=== PATIENT | female | born 1970 | race American Indian/Alaskan Native ===

== ENCOUNTER 2016-04-18 16:29 | Emergency (ER) | payer MEDICAID, OTHER ==
[2016-04-18 16:53] VITALS: BP 109/64
--- NOTE | 2016-04-18 17:03 | EDM.PDOC ---
<Constance Garza - Last Filed: 04/18/16 19:28> ED HPI GENERAL MEDICAL PROBLEM - General Chief Complaint: General Stated Complaint: BY AMBULANCE Time Seen by Provider: 04/18/16 17:00 Source of Information: Reports: Patient History Limitations: Reports: No limitations - History of Present Illness INITIAL COMMENTS - FREE TEXT/NARRATIVE: Pt states that she is diabetic and did not take her insulin today. [place] and started having nausea and vomiting. No other complaints. Onset Date: 04/18/16 Location: Reports: abdomen Quality: Reports: Ache Severity: mild Associated Symptoms: Reports: nausea/vomiting (dizzy) - Related Data Allergies Allergy/AdvReac Type Severity Reaction Status Date / Time acetaminophen Allergy Vomiting Verified 01/29/15 15:34 Home Meds: Home Meds Aspirin [Sixto Chewable Aspirin] 81 mg PO DAILY 01/29/15 [History] Insulin Aspart [NovoLOG] 10 - 20 units SUBCUT TID 01/29/15 [History] Insulin Detemir [Levemir Flextouch] 30 units SUBCUT DAILY 01/29/15 [History] Lisinopril [Prinivil] 10 mg PO DAILY 01/29/15 [History] Gabapentin [Neurontin] 600 mg PO DAILY #30 tablet 02/05/15 [Rx] Metoclopramide [Reglan] 5 mg PO QIDACANDBED PRN 02/05/15 [History] Potassium Chloride [Klor-Con 10] 20 meq PO BIDMEALS #60 tab.er 02/05/15 [Rx] atorvaSTATin [Lipitor] 20 mg PO BEDTIME #30 tablet 02/05/15 [Rx] Hydrocodone/Acetaminophen [Hydrocodon-Acetaminophen 5-325] 1 tab PO ASDIRECTED PRN 04/18/16 [History] Past Medical History Cardiovascular History: Reports: High cholesterol, Hypertension, Syncope, Other (see below) Other Cardiovascular History: "have heart disease" Respiratory History: Reports: Bronchitis, recurrent, Pneumonia, recurrent Gastrointestinal History: Reports: GERD, Other (see below) Other Gastrointestinal History: Hernia repair on right side of abdomen Genitourinary History: Reports: Diabetic nephropathy Musculoskeletal History: Reports: Back pain, chronic, Other (see below) Other Musculoskeletal History: spinal stenosis and arthritis in spine Neurological History: Reports: Concussion, Headaches, chronic, Migraines, Neuropathy, diabetic Psychiatric History: Reports: Anxiety, Depression, Panic attack Endocrine/Metabolic History: Reports: Diabetes, type II Dermatologic History: Reports: Other (see below) Other Dermatologic History: past history of betancur. patient states 90% of body - Infectious Disease History Infectious Disease History: Reports: Chicken pox, Pertussis (whooping cough) - Past Surgical History GI Surgical History: Reports: EGD, Hernia, abdominal Dermatological Surgical History: Reports: Plastic surgical reconstruction/repair , Skin graft Social & Family History - Family History Cardiac: Reports: High cholesterol, Hypertension, Other (see below) Other Cardiac Family History: "bad heart" GI: Reports: Cirrhosis Other GI Family History: "sister has cirrhosis" Musculoskeletal: Reports: Arthritis, Back pain, chronic, RA Other Musculoskeletal Family History: mom has Ra,dad has chronic back pain and arthritis Neurological: Reports: Alzheimers disease, Dementia, Other (see below) Other Neurological Family History: dad has dementia and alzheimers disease and brother has permanent brain damage Psychiatric: Reports: Depression Endocrine/Metabolic: Reports: Diabetes, type I Other Endocrine/Metabolic Family History: Mom - Tobacco Use Smoking Status *Q: Former Smoker Years of Tobacco use: 1 Packs/Tins Daily: 0.1 Used Tobacco, but Quit: Yes Month Tobacco Last Used: 08 Second Hand Smoke Exposure: Yes - Caffeine Use Caffeine Use: Reports: None - Recreational Drug Use Recreational Drug Use: No Drug Use in Last 12 Months: No Recreational Drug Type: Reports: Marijuana/Hashish ED ROS GENERAL - Review of Systems Review Of Systems: See Below GI/Abdominal: Reports: Abdominal pain, Nausea, Vomiting Neurological: Reports: dizziness ED EXAM, GENERAL - Physical Exam Exam: See Below Exam Limited By: No limitations General Appearance: alert, WD/WN, no apparent distress Eye Exam: bilateral eye: PERRL Ear Exam: bilateral ear: auricle normal, canal normal, TM normal Head: atraumatic, normocephalic Neck: normal inspection, supple, non-tender, full range of motion Respiratory/Chest: no respiratory distress, lungs clear, normal breath sounds, no accessory muscle use, chest non-tender Cardiovascular: normal peripheral pulses, regular rate, rhythm, no edema, no gallop, no JVD, no murmur, no rub Neurological: alert, oriented, CN II-XII intact, normal cognition, normal gait, normal reflexes, no motor/sensory deficits Skin Exam: Warm, Dry, Intact, Normal color, No rash Course - Vital Signs Last Recorded V/S: Last Vital Signs Temp 36.2 C 04/18/16 16:29 Pulse 97 04/18/16 16:29 Resp 16 04/18/16 16:29 BP 109/64 04/18/16 16:29 Pulse Ox 99 04/18/16 16:29 - Orders/Labs/Meds Orders: Active Orders 24 hr Category Date Time Status Blood Glucose Check, Bedside [RC] ONETIME Care 04/18/16 20:25 Active CMP [COMPREHENSIVE METABOLIC PN,CMP] [CHEM] Stat Lab 04/18/16 23:56 Received Labs: Laboratory Tests 04/18/16 04/18/16 04/18/16 Range/Units 17:14 17:14 17:14 WBC 13.6 H (5.0-10.0) 10^3/uL RBC 5.44 H (4.2-5.4) 10^6/uL Hgb 14.9 (12.0-16.0) g/dL Hct 42.4 (37.0-47.0) % MCV 77.9 L (80-100) fL MCH 27.4 (27.0-34.0) pg MCHC 35.1 H (33.0-35.0) g/dL Plt Count 298 (150-450) 10^3/uL Neut % (Auto) 77.0 H (42.2-75.2) % Lymph % (Auto) 16.9 L (20.5-50.1) % [place] % (Auto) 5.0 (2-8) % Eos % (Auto) 0.9 L (1.0-3.0) % Baso % (Auto) 0.2 (0.0-1.0) % Sodium 127 L (135-145) mmol/L Potassium 4.9 (3.6-5.0) mmol/L Chloride 98 L (101-111) mmol/L Carbon Dioxide 19.0 L (21.0-31.0) mmol/L Anion Gap 14.9 BUN 33 H (7-18) mg/dL Creatinine 1.4 H (0.6-1.3) mg/dL Est Cr Clr Drug Dosing TNP Estimated GFR (MDRD) 41 BUN/Creatinine Ratio 23.57 Glucose 439 H* (74-105) mg/dL POC Glucose (70-105) mg/dl Lactic Acid 1.7 (0.5-2.2) mmol/L Calcium 8.9 (8.4-10.2) mg/dl Total Bilirubin 0.7 (0.2-1.0) mg/dL AST 16 (10-42) IU/L ALT 29 (10-60) IU/L Alkaline Phosphatase 109 (42-121) IU/L Total Protein 7.3 (6.7-8.2) g/dl Albumin 3.7 (3.2-5.5) g/dl Globulin 3.6 Albumin/Globulin Ratio 1.03 Urine Color (YELLOW) Urine Appearance (CLEAR) Urine pH (5.0-9.0) Ur Specific [place] (1.005-1.030) Urine Protein (NEGATIVE) Urine Glucose (UA) (NEGATIVE) Urine Ketones (NEGATIVE) Urine Occult Blood (NEGATIVE) Urine Nitrite (NEGATIVE) Urine Bilirubin (NEGATIVE) Urine Urobilinogen (0.2-1.0) mg/dL Ur Leukocyte Esterase (NEGATIVE) Urine RBC /HPF Urine WBC (0-5/HPF) /HPF Ur Epithelial Cells /HPF Urine Bacteria (0-FEW/HPF) /HPF Urinalysis Comment Ketones Positive (small) 04/18/16 04/18/16 04/18/16 Range/Units 17:15 20:27 22:56 WBC (5.0-10.0) 10^3/uL RBC (4.2-5.4) 10^6/uL Hgb (12.0-16.0) g/dL Hct (37.0-47.0) % MCV (80-100) fL MCH (27.0-34.0) pg MCHC (33.0-35.0) g/dL Plt Count (150-450) 10^3/uL Neut % (Auto) (42.2-75.2) % Lymph % (Auto) (20.5-50.1) % [place] % (Auto) (2-8) % Eos % (Auto) (1.0-3.0) % Baso % (Auto) (0.0-1.0) % Sodium (135-145) mmol/L Potassium (3.6-5.0) mmol/L Chloride (101-111) mmol/L Carbon Dioxide (21.0-31.0) mmol/L Anion Gap BUN (7-18) mg/dL Creatinine (0.6-1.3) mg/dL Est Cr Clr Drug Dosing Estimated GFR (MDRD) BUN/Creatinine Ratio Glucose (74-105) mg/dL POC Glucose 385 H 282 H (70-105) mg/dl Lactic Acid (0.5-2.2) mmol/L Calcium (8.4-10.2) mg/dl Total Bilirubin (0.2-1.0) mg/dL AST (10-42) IU/L ALT (10-60) IU/L Alkaline Phosphatase (42-121) IU/L Total Protein (6.7-8.2) g/dl Albumin (3.2-5.5) g/dl Globulin Albumin/Globulin Ratio Urine Color Yellow (YELLOW) Urine Appearance Turbid (CLEAR) Urine pH 5.0 (5.0-9.0) Ur Specific [place] 1.020 (1.005-1.030) Urine Protein >=300 H (NEGATIVE) Urine Glucose (UA) 500 H (NEGATIVE) Urine Ketones Negative (NEGATIVE) Urine Occult Blood Small H (NEGATIVE) Urine Nitrite Negative (NEGATIVE) Urine Bilirubin Small H (NEGATIVE) Urine Urobilinogen 0.2 (0.2-1.0) mg/dL Ur Leukocyte Esterase Small H (NEGATIVE) Urine RBC 5-10 H /HPF Urine WBC 5-10 H (0-5/HPF) /HPF Ur Epithelial Cells Many H /HPF Urine Bacteria Many H (0-FEW/HPF) /HPF Urinalysis Comment Ketones Meds: Medications Discontinued Medications Generic Name Dose Route Start Last Admin Trade Name Freq PRN Reason Stop Dose Admin Ciprofloxacin 500 mg 04/18/16 19:06 04/18/16 19:24 Ciprofloxacin Hcl PO 04/18/16 19:07 500 mg ONETIME ONE Administration Sodium Chloride 1,000 mls @ 999 mls/hr 04/18/16 19:13 04/18/16 22:09 Normal Saline IV 04/18/16 20:13 Not Given .BOLUS ONE Potassium Chloride 20 meq/ 100 mls @ 50 mls/hr 04/18/16 19:21 04/18/16 20:20 Premix IV 04/18/16 21:20 50 mls/hr ONETIME ONE Administration Sodium Chloride 2,000 mls @ 999 mls/hr 04/18/16 19:20 04/18/16 20:19 Normal Saline IV 04/18/16 21:20 999 mls/hr .BOLUS ONE Administration Insulin Human Regular 10 unit 04/19/16 17:45 Novolin R SUBCUT 04/19/16 17:46 ONETIME ONE Protocol Insulin Human Regular Confirm 04/18/16 18:31 04/18/16 18:37 Novolin R Administered 04/18/16 18:32 10 units Dose Administration 1,000 unit .ROUTE .STK-MED ONE Insulin Human Regular 5 unit 04/18/16 20:30 04/18/16 20:38 Novolin R SUBCUT 04/18/16 20:31 5 units ONETIME ONE Administration Protocol - Re-Assessments/Exams Free Text/Narrative Re-Assessment/Exam: 04/18/16 19:[address] Francois, hospitalist who states that pt does not need to be admitted at this time. States that patient should receive Insulin at least 16 units and IV fluids to correct her GAP and she may be able to be discharged. Will administer recommendations. Departure - Departure Disposition: Home, Self-Care 01 Clinical Impression: Ketoacidosis in diabetes mellitus Forms: ED Department Discharge Additional Instructions: Rest Follow your Diabetic Diet Take your medications as prescribed only F/U w/ PCP - My Orders Last 24 Hours: My Active Orders 04/18/16 20:25 Blood Glucose Check, Bedside [RC] ONETIME 04/18/16 23:56 CMP [COMPREHENSIVE METABOLIC PN,CMP] [CHEM] Stat - Assessment/Plan Last 24 Hours: My Active Orders 04/18/16 20:25 Blood Glucose Check, Bedside [RC] ONETIME 04/18/16 23:56 CMP [COMPREHENSIVE METABOLIC PN,CMP] [CHEM] Stat <Ayan Quach - Last Filed: 04/19/16 00:30> Departure - Departure Time of Disposition: 00:29 Condition: good
[2016-04-18 17:40] LABS: CHLORIDE,CL 98 mmol/L (101-111); SODIUM,NA 127 mmol/L (135-145)
[2016-04-18] MEDS ORDERED: Insulin Regular, Human 100 Units/ML 10 ML Vial ONE (18:31)
[2016-04-18] MEDS ORDERED: Ciprofloxacin 500 MG Tab PO ONE (19:06)
[2016-04-18] MEDS ORDERED: Sodium Chloride 0.9% 1,000 ML IV ONE (19:13)
[2016-04-18] MEDS ORDERED: Sodium Chloride 0.9% 2,000 ML IV ONE (19:20)
[2016-04-18] MEDS ORDERED: Potassium Chloride 20 MEQ in Premix Bag 1 BAG IV ONE (19:21)
[2016-04-18] MEDS ORDERED: Insulin Regular, Human 100 Units/ML 10 ML Vial SUBCUT ONE (20:30)
[2016-04-19 00:37] LABS: CHLORIDE,CL 108 mmol/L (101-111); SODIUM,NA 133 mmol/L (135-145)
[2016-04-19] MEDS ORDERED: Insulin Regular, Human 100 Units/ML 10 ML Vial SUBCUT ONE (17:45)
== END 2016-04-19 01:00 | disposition home or self-care (01) ==
LOC: DL.ED 16:29
DX: E13.10 Other specified diabetes mellitus with ketoacidosis without coma (principal); E78.00 Pure hypercholesterolemia, unspecified; I10 Essential (primary) hypertension; Z87.01 Personal history of pneumonia (recurrent); K21.9 Gastro-esophageal reflux disease without esophagitis; F41.9 Anxiety disorder, unspecified; F32.9 Major depressive disorder, single episode, unspecified; Z87.891 Personal history of nicotine dependence; Z79.4 Long term (current) use of insulin; Z79.82 Long term (current) use of aspirin; Z88.6 Allergy status to analgesic agent
CPT/HCPCS: 36415; 80053; 81001; 82009; 82962; 83605; 85025; 96365; 96366; 99284; A9270; J1815; J3480; J7030

== ENCOUNTER 2016-04-19 21:40 | Emergency (ER) | payer MEDICAID, OTHER ==
[2016-04-19 21:46] VITALS: BP 97/78
[2016-04-19] MEDS ORDERED: diphenhydrAMINE 50 MG/ML SDV IVPUSH ONE (22:03)
[2016-04-19] MEDS ORDERED: Sodium Chloride 0.9% 1,000 ML IV ONE ×2 (22:03→23:10)
[2016-04-19] MEDS ORDERED: Famotidine 20 MG/2 ML SDV IVPUSH ONE (22:04)
--- NOTE | 2016-04-19 22:16 | EDM.PDOC ---
ED HPI Allergic Reaction - General Chief Complaint: Allergic Reaction Stated Complaint: AMB Time Seen by Provider: 04/19/16 22:16 Source of Information: Reports: Patient, EMS History Limitations: Reports: No limitations - History of Present Illness INITIAL COMMENTS - FREE TEXT/NARRATIVE: c/o hives and itching since ED visit last night. Has not taken insulin yet today as no appetite. One dose of cipro last issac. Seen in ED for high blood sugar. - Related Data Allergies/ADRs: Allergies Allergy/AdvReac Type Severity Reaction Status Date / Time acetaminophen Allergy Vomiting Verified 04/19/16 21:46 Home Meds: Home Meds Aspirin [Sixto Chewable Aspirin] 81 mg PO DAILY 01/29/15 [History] Insulin Aspart [NovoLOG] 10 - 20 units SUBCUT TID 01/29/15 [History] Insulin Detemir [Levemir Flextouch] 30 units SUBCUT DAILY 01/29/15 [History] Lisinopril [Prinivil] 10 mg PO DAILY 01/29/15 [History] Gabapentin [Neurontin] 600 mg PO DAILY #30 tablet 02/05/15 [Rx] Metoclopramide [Reglan] 5 mg PO QIDACANDBED PRN 02/05/15 [History] Potassium Chloride [Klor-Con 10] 20 meq PO BIDMEALS #60 tab.er 02/05/15 [Rx] atorvaSTATin [Lipitor] 20 mg PO BEDTIME #30 tablet 02/05/15 [Rx] Past Medical History Cardiovascular History: Reports: High cholesterol, Hypertension, Syncope, Other (see below) Other Cardiovascular History: "have heart disease" Respiratory History: Reports: Bronchitis, recurrent, Pneumonia, recurrent Gastrointestinal History: Reports: GERD, Other (see below) Other Gastrointestinal History: Hernia repair on right side of abdomen Genitourinary History: Reports: Diabetic nephropathy Musculoskeletal History: Reports: Back pain, chronic, Other (see below) Other Musculoskeletal History: spinal stenosis and arthritis in spine Neurological History: Reports: Concussion, Headaches, chronic, Migraines, Neuropathy, diabetic Psychiatric History: Reports: Anxiety, Depression, Panic attack Endocrine/Metabolic History: Reports: Diabetes, type II Dermatologic History: Reports: Other (see below) Other Dermatologic History: past history of betancur. patient states 90% of body - Infectious Disease History Infectious Disease History: Reports: Chicken pox, Pertussis (whooping cough) - Past Surgical History GI Surgical History: Reports: EGD, Hernia, abdominal Dermatological Surgical History: Reports: Plastic surgical reconstruction/repair , Skin graft Social & Family History - Family History Cardiac: Reports: High cholesterol, Hypertension, Other (see below) Other Cardiac Family History: "bad heart" GI: Reports: Cirrhosis Other GI Family History: "sister has cirrhosis" Musculoskeletal: Reports: Arthritis, Back pain, chronic, RA Other Musculoskeletal Family History: mom has Ra,dad has chronic back pain and arthritis Neurological: Reports: Alzheimers disease, Dementia, Other (see below) Other Neurological Family History: dad has dementia and alzheimers disease and brother has permanent brain damage Psychiatric: Reports: Depression Endocrine/Metabolic: Reports: Diabetes, type I Other Endocrine/Metabolic Family History: Mom - Tobacco Use Smoking Status *Q: Never Smoker Years of Tobacco use: 1 Packs/Tins Daily: 0.1 Used Tobacco, but Quit: Yes Month Tobacco Last Used: 08 Second Hand Smoke Exposure: No - Caffeine Use Caffeine Use: Reports: None - Recreational Drug Use Recreational Drug Use: No Drug Use in Last 12 Months: No Recreational Drug Type: Reports: Marijuana/Hashish ED ROS ALLERGIC REACTION - Review of Systems Review Of Systems: See Below Constitutional: Reports: decreased appetite HEENT: Reports: No symptoms Respiratory: Reports: no symptoms Cardiovascular: Reports: No symptoms Endocrine: Reports: high glucose GI/Abdominal: Reports: No symptoms : Reports: no symptoms Skin: Reports: rash (hives upper extremities neck and back) Neurological: Reports: no symptoms ED EXAM GENERAL NO PERIP PULSE - Physical Exam Exam: See Below Exam Limited By: No limitations General Appearance: alert, no apparent distress Eye Exam: bilateral eye: EOMI Ears: normal external exam, normal TMs Nose: normal inspection Throat/Mouth: Normal inspection, Normal lips Head: atraumatic, normocephalic Respiratory/Chest: no respiratory distress, lungs clear, normal breath sounds Cardiovascular: normal peripheral pulses, regular rate, rhythm GI/Abdominal: normal bowel sounds, soft Extremities: normal inspection Neurological: alert, oriented, normal cognition Skin Exam: Warm, Dry, Other (macular hives upper extremities neck ches abdomen and back upper arms excoriated. ) Course - Vital Signs Last Recorded V/S: Last Vital Signs Temp 98.1 F 04/19/16 21:40 Pulse 99 04/19/16 21:40 Resp 18 04/19/16 21:40 BP 97/78 04/19/16 21:40 Pulse Ox 96 04/19/16 21:40 - Orders/Labs/Meds Orders: Active Orders 24 hr Category Date Time Status Glucose [Blood Glucose Check, Bedside] [] ONETIME Care 04/20/16 00:01 Active Glucose [Blood Glucose Check, Bedside] [] ONETIME Care 04/20/16 00:48 Active UA W/MICROSCOPIC [URIN] Stat Lab 04/20/16 00:10 Stop Req Labs: Laboratory Tests 04/19/16 04/19/16 04/19/16 Range/Units 22:04 22:04 22:04 WBC 11.3 H (5.0-10.0) 10^3/uL RBC 4.45 (4.2-5.4) 10^6/uL Hgb 12.2 (12.0-16.0) g/dL Hct 35.9 L (37.0-47.0) % MCV 80.7 (80-100) fL MCH 27.4 (27.0-34.0) pg MCHC 34.0 (33.0-35.0) g/dL Plt Count 271 (150-450) 10^3/uL Neut % (Auto) 76.4 H (42.2-75.2) % Lymph % (Auto) 17.0 L (20.5-50.1) % [place] % (Auto) 6.0 (2-8) % Eos % (Auto) 0.5 L (1.0-3.0) % Baso % (Auto) 0.1 (0.0-1.0) % Sodium 131 L (135-145) mmol/L Potassium 4.5 (3.6-5.0) mmol/L Chloride 101 (101-111) mmol/L Carbon Dioxide 20.0 L (21.0-31.0) mmol/L Anion Gap 14.5 BUN 44 H (7-18) mg/dL Creatinine 1.8 H (0.6-1.3) mg/dL Est Cr Clr Drug Dosing 34.44 mL/min Estimated GFR (MDRD) 31 BUN/Creatinine Ratio 24.44 Glucose 508 H* (74-105) mg/dL POC Glucose (70-105) mg/dl Lactic Acid 1.9 (0.5-2.2) mmol/L Calcium 8.5 (8.4-10.2) mg/dl Total Bilirubin 0.5 (0.2-1.0) mg/dL AST 17 (10-42) IU/L ALT 22 (10-60) IU/L Alkaline Phosphatase 94 (42-121) IU/L Total Protein 6.2 L (6.7-8.2) g/dl Albumin 3.2 (3.2-5.5) g/dl Globulin 3.0 Albumin/Globulin Ratio 1.07 Amylase 23 L (28-100) U/L Lipase 29 (22-51) U/L Urine Opiates Screen (NEGATIVE) Ur Oxycodone Screen (NEGATIVE) Urine Methadone Screen (NEGATIVE) Ur Barbiturates Screen (NEGATIVE) U Tricyclic Antidepress (NEGATIVE) Ur Phencyclidine Scrn (NEGATIVE) Ur Amphetamine Screen (NEGATIVE) U Methamphetamines Scrn (NEGATIVE) Urine MDMA Screen (NEGATIVE) U Benzodiazepines Scrn (NEGATIVE) Urine Cocaine Screen (NEGATIVE) U Marijuana (THC) Screen (NEGATIVE) Ketones Negative 04/20/16 04/20/16 04/20/16 Range/Units 00:03 00:10 00:51 WBC (5.0-10.0) 10^3/uL RBC (4.2-5.4) 10^6/uL Hgb (12.0-16.0) g/dL Hct (37.0-47.0) % MCV (80-100) fL MCH (27.0-34.0) pg MCHC (33.0-35.0) g/dL Plt Count (150-450) 10^3/uL Neut % (Auto) (42.2-75.2) % Lymph % (Auto) (20.5-50.1) % [place] % (Auto) (2-8) % Eos % (Auto) (1.0-3.0) % Baso % (Auto) (0.0-1.0) % Sodium (135-145) mmol/L Potassium (3.6-5.0) mmol/L Chloride (101-111) mmol/L Carbon Dioxide (21.0-31.0) mmol/L Anion Gap BUN (7-18) mg/dL Creatinine (0.6-1.3) mg/dL Est Cr Clr Drug Dosing mL/min Estimated GFR (MDRD) BUN/Creatinine Ratio Glucose (74-105) mg/dL POC Glucose 399 H 387 H (70-105) mg/dl Lactic Acid (0.5-2.2) mmol/L Calcium (8.4-10.2) mg/dl Total Bilirubin (0.2-1.0) mg/dL AST (10-42) IU/L ALT (10-60) IU/L Alkaline Phosphatase (42-121) IU/L Total Protein (6.7-8.2) g/dl Albumin (3.2-5.5) g/dl Globulin Albumin/Globulin Ratio Amylase (28-100) U/L Lipase (22-51) U/L Urine Opiates Screen Negative (NEGATIVE) Ur Oxycodone Screen Negative (NEGATIVE) Urine Methadone Screen Negative (NEGATIVE) Ur Barbiturates Screen Negative (NEGATIVE) U Tricyclic Antidepress Negative (NEGATIVE) Ur Phencyclidine Scrn Negative (NEGATIVE) Ur Amphetamine Screen Positive H (NEGATIVE) U Methamphetamines Scrn Positive H (NEGATIVE) Urine MDMA Screen Negative (NEGATIVE) U Benzodiazepines Scrn Negative (NEGATIVE) Urine Cocaine Screen Negative (NEGATIVE) U Marijuana (THC) Screen Positive H (NEGATIVE) Ketones Meds: Medications Discontinued Medications Generic Name Dose Route Start Last Admin Trade Name Brian PRN Reason Stop Dose Admin Diphenhydramine HCl 25 mg 04/19/16 22:03 04/19/16 22:12 Benadryl IVPUSH 04/19/16 22:04 25 mg ONETIME ONE Administration Famotidine 20 mg 04/19/16 22:04 04/19/16 22:16 Pepcid IVPUSH 04/19/16 22:05 20 mg ONETIME ONE Administration Sodium Chloride 1,000 mls @ 999 mls/hr 04/19/16 22:03 04/19/16 22:12 Normal Saline IV 04/19/16 23:03 999 mls/hr .BOLUS ONE Administration Sodium Chloride 1,000 mls @ 999 mls/hr 04/19/16 23:10 04/19/16 23:14 Normal Saline IV 04/20/16 00:10 999 mls/hr .BOLUS ONE Administration Insulin Human Regular 10 unit 04/20/16 22:10 Novolin R SUBCUT 04/20/16 22:11 ONETIME ONE Protocol Insulin Human Regular 10 unit 04/19/16 22:52 04/19/16 23:06 Novolin R SUBCUT 04/19/16 22:53 10 units ONETIME ONE Administration Protocol Insulin Human Regular 10 unit 04/20/16 00:58 04/20/16 01:06 Novolin R SUBCUT 04/20/16 00:59 10 units BIDAC ONE Administration Protocol - Re-Assessments/Exams Free Text/Narrative Re-Assessment/Exam: 04/20/16 01:38 UDS positive for meth, patient denied use herself stating she was just around others last week who were doing it.. TC consult Dr. Escobedo In agreement, as blood sugars are improving. No present indication for admission. Departure - Departure Time of Disposition: 01:10 Disposition: Home, Self-Care 01 Condition: fair Clinical Impression: Hyperglycemia, Hives, Methamphetamine abuse Instructions: Hives Forms: ED Department Discharge Additional Instructions: take insulin as directed check blood sugars in 2 hours eat in am - My Orders Last 24 Hours: My Active Orders 04/20/16 00:01 Glucose [Blood Glucose Check, Bedside] [] ONETIME 04/20/16 00:10 UA W/MICROSCOPIC [URIN] Stat 04/20/16 00:48 Glucose [Blood Glucose Check, Bedside] [] ONETIME - Assessment/Plan Last 24 Hours: My Active Orders 04/20/16 00:01 Glucose [Blood Glucose Check, Bedside] [] ONETIME 04/20/16 00:10 UA W/MICROSCOPIC [URIN] Stat 04/20/16 00:48 Glucose [Blood Glucose Check, Bedside] [] ONETIME
[2016-04-19 22:48] LABS: CHLORIDE,CL 101 mmol/L (101-111); SODIUM,NA 131 mmol/L (135-145)
[2016-04-19] MEDS ORDERED: Insulin Regular, Human 100 Units/ML 10 ML Vial SUBCUT ONE (22:52)
[2016-04-20] MEDS ORDERED: Insulin Regular, Human 100 Units/ML 10 ML Vial SUBCUT ONE ×2 (00:58→22:10)
== END 2016-04-20 01:20 | disposition home or self-care (01) ==
LOC: DL.ED 21:40
DX: L50.9 Urticaria, unspecified (principal); E13.10 Other specified diabetes mellitus with ketoacidosis without coma; E11.65 Type 2 diabetes mellitus with hyperglycemia; F15.10 Other stimulant abuse, uncomplicated; E78.00 Pure hypercholesterolemia, unspecified; I10 Essential (primary) hypertension; Z87.01 Personal history of pneumonia (recurrent); K21.9 Gastro-esophageal reflux disease without esophagitis; E11.40 Type 2 diabetes mellitus with diabetic neuropathy, unspecified; E11.21 Type 2 diabetes mellitus with diabetic nephropathy; F41.9 Anxiety disorder, unspecified; F32.9 Major depressive disorder, single episode, unspecified; Z88.6 Allergy status to analgesic agent; Z79.4 Long term (current) use of insulin; Z79.82 Long term (current) use of aspirin; Z79.899 Other long term (current) drug therapy; Z87.891 Personal history of nicotine dependence
CPT/HCPCS: 36415; 80053; 80305; 81001; 82009; 82150; 82962; 83605; 83690; 85025; 96361; 96365; 96366; 96374; 96375; 99284; 99285; A9270; J1200; J1815; J3480; J7030; S0028

== ENCOUNTER 2016-10-11 17:57 | Emergency (ER) | payer MEDICAID, OTHER ==
[2016-10-11 18:35] VITALS: BP 118/71
[2016-10-11] MEDS ORDERED: Acetaminophen/HYDROcodone 325-10 MG Tab PO ONE (18:59)
[2016-10-11] MEDS ORDERED: Clindamycin HCl 150 MG Cap PO ONE (18:59)
--- NOTE | 2016-10-11 19:05 | EDM.PDOC ---
ED HPI GENERAL MEDICAL PROBLEM - General Chief Complaint: ENT Problem Stated Complaint: EAR INFECTION, ULCER ON TOE, [id number] Time Seen by Provider: 10/11/16 19:00 Source of Information: Reports: Patient History Limitations: Reports: No Limitations - History of Present Illness INITIAL COMMENTS - FREE TEXT/NARRATIVE: had right big toe procedure done @ [facility] this am given '0' also right ear been hurting few days Right Ear Pain Score (Numeric/FACES): 10 - Related Data Allergies Allergy/AdvReac Type Severity Reaction Status Date / Time acetaminophen Allergy Vomiting Verified 10/11/16 18:20 Home Meds: Home Meds Aspirin [Sixto Chewable Aspirin] 81 mg PO DAILY 01/29/15 [History] Insulin Aspart [NovoLOG] 10 - 20 units SUBCUT TID 01/29/15 [History] Insulin Detemir [Levemir Flextouch] 30 units SUBCUT DAILY 01/29/15 [History] Lisinopril [Prinivil] 10 mg PO DAILY 01/29/15 [History] Gabapentin [Neurontin] 600 mg PO DAILY #30 tablet 02/05/15 [Rx] Metoclopramide [Reglan] 5 mg PO QIDACANDBED PRN 02/05/15 [History] Potassium Chloride [Klor-Con 10] 20 meq PO BIDMEALS #60 tab.er 02/05/15 [Rx] atorvaSTATin [Lipitor] 20 mg PO BEDTIME #30 tablet 02/05/15 [Rx] Calcium Carb & Citrate/Vit D3 [Calcium + D3 ER Tablet] 1 each PO BID 10/11/16 [ History] Loperamide [Imodium AD] 2 mg PO Q3H PRN 10/11/16 [History] Multivitamin [Daily Multiple Vitamin] 1 tab PO DAILY 10/11/16 [History] Past Medical History Cardiovascular History: Reports: High Cholesterol, Hypertension, Syncope, Other (See Below) Other Cardiovascular History: "have heart disease" Respiratory History: Reports: Bronchitis, Recurrent, Pneumonia, Recurrent Gastrointestinal History: Reports: Chronic Diarrhea, GERD Other Gastrointestinal History: Hernia repair on right side of abdomen Genitourinary History: Reports: Diabetic Nephropathy Musculoskeletal History: Reports: Back Pain, Chronic, Other (See Below) Other Musculoskeletal History: spinal stenosis and arthritis in spine Neurological History: Reports: Concussion, Headaches, Chronic, Migraines, Neuropathy, Diabetic Psychiatric History: Reports: Anxiety, Depression, Panic Attack Endocrine/Metabolic History: Reports: Diabetes, Type II Dermatologic History: Reports: Other (See Below) Other Dermatologic History: past history of betancur. patient states 90% of body - Infectious Disease History Infectious Disease History: Reports: Chicken Pox, Pertussis (Whooping Cough) - Past Surgical History GI Surgical History: Reports: EGD, Hernia, Abdominal Dermatological Surgical History: Reports: Plastic Surgical Reconstruction/Repair , Skin Graft Social & Family History - Family History Cardiac: Reports: High Cholesterol, Hypertension, Other (See Below) Other Cardiac Family History: "bad heart" GI: Reports: Cirrhosis Other GI Family History: "sister has cirrhosis" Musculoskeletal: Reports: Arthritis, Back pain, Chronic, RA Other Musculoskeletal Family History: mom has Ra,dad has chronic back pain and arthritis Neurological: Reports: Alzheimers Disease, Dementia, Other (See Below) Other Neurological Family History: dad has dementia and alzheimers disease and brother has permanent brain damage Psychiatric: Reports: Depression Endocrine/Metabolic: Reports: Diabetes, Type I Other Endocrine/Metabolic Family History: Mom - Tobacco Use Smoking Status *Q: Former Smoker Years of Tobacco use: 1 Packs/Tins Daily: 0.1 Used Tobacco, but Quit: Yes Month Tobacco Last Used: 05/2016 Second Hand Smoke Exposure: No - Caffeine Use Caffeine Use: Reports: None - Recreational Drug Use Recreational Drug Use: No Drug Use in Last 12 Months: No Recreational Drug Type: Reports: Marijuana/Hashish ED ROS ENT - Review of Systems Review Of Systems: ROS reveals no pertinent complaints other than HPI. ED EXAM, ENT - Physical Exam Exam: See Below Exam Limited By: No Limitations General Appearance: Alert, WD/WN, Mild Distress, Other (crying) Ears: Hearing Grossly Normal, Canal Discharge, Canal Swelling, TM Dullness, Other (right) Mouth/Throat: Normal Inspection, Normal Oropharynx Head: Atraumatic Neck: Non-Tender, Full Range of Motion Respiratory/Chest: No Respiratory Distress Cardiovascular: Regular Rate, Rhythm GI/Abdominal: Soft, Non-Tender Extremities: Other (right big toe local swelling redness tender, gait limited to pain, no lymphangitis) Neurological: Alert, Oriented, Normal Cognition, Normal Gait, No Motor/Sensory Deficits Psychiatric: Normal Affect, Normal Mood Skin: Warm, Dry, Normal Color Lymphatic: No Adenopathy Course - Vital Signs Last Recorded V/S: Last Vital Signs Temp 36.8 C 10/11/16 18:03 Pulse 96 10/11/16 18:03 Resp 16 10/11/16 18:03 BP 118/71 10/11/16 18:03 Pulse Ox 99 10/11/16 18:03 - Orders/Labs/Meds Orders: Active Orders 24 hr Category Date Time Status Acetaminophen/HYDROcodone [[facility] 325-10 MG] Med 10/11/16 18:59 Once 1 tab PO ONETIME ONE Clindamycin HCl [Cleocin] Med 10/11/16 18:59 Once 150 mg PO ONETIME ONE Departure - Departure Time of Disposition: 19:03 Disposition: Home, Self-Care 01 Condition: Good Clinical Impression: Toe infection Otitis externa Qualifiers: Otitis externa type: diffuse Chronicity: acute Laterality: right Qualified Code (s): H60.311 - Diffuse otitis externa, right ear - Discharge Information Instructions: Otitis Externa, [id number] Forms: ED Department Discharge Additional Instructions: 1) keep toe wound clean dry covered with daily dressing change 2) don't get water into right ear 3) follow up at clinic or recheck as needed rx given; clindamycin 150mg qid x 40 vicodin 5/325mg bid prn x 12 - My Orders Last 24 Hours: My Active Orders 10/11/16 18:59 Acetaminophen/HYDROcodone [[facility] 325-10 MG] 1 tab PO ONETIME ONE Clindamycin HCl [Cleocin] 150 mg PO ONETIME ONE - Assessment/Plan Last 24 Hours: My Active Orders 10/11/16 18:59 Acetaminophen/HYDROcodone [[facility] 325-10 MG] 1 tab PO ONETIME ONE Clindamycin HCl [Cleocin] 150 mg PO ONETIME ONE
== END 2016-10-11 19:19 | disposition home or self-care (01) ==
LOC: DL.ED 17:57
DX: H60.311 Diffuse otitis externa, right ear (principal); L08.9 Local infection of the skin and subcutaneous tissue, unspecified; K21.9 Gastro-esophageal reflux disease without esophagitis; I10 Essential (primary) hypertension; E11.21 Type 2 diabetes mellitus with diabetic nephropathy; E11.40 Type 2 diabetes mellitus with diabetic neuropathy, unspecified; Z79.82 Long term (current) use of aspirin; Z79.4 Long term (current) use of insulin; Z79.899 Other long term (current) drug therapy; Z88.6 Allergy status to analgesic agent; E78.00 Pure hypercholesterolemia, unspecified; Z87.891 Personal history of nicotine dependence; Z98.890 Other specified postprocedural states; M19.90 Unspecified osteoarthritis, unspecified site; Z87.01 Personal history of pneumonia (recurrent)
CPT/HCPCS: 99282; A9270

== ENCOUNTER 2016-11-07 10:54 | Emergency (ER) | payer MEDICAID, OTHER ==
[2016-11-07 11:19] VITALS: BP 187/104
[2016-11-07] MEDS ORDERED: Diltiazem 180 MG Cap.CD PO ONE (11:24)
--- NOTE | 2016-11-07 11:31 | EDM.PDOC ---
ED HPI GENERAL MEDICAL PROBLEM - General Chief Complaint: Chest Pain Stated Complaint: BLOOD PRESSURE TO HIGH Time Seen by Provider: 11/07/16 11:23 Source of Information: Reports: Patient History Limitations: Reports: No Limitations - History of Present Illness INITIAL COMMENTS - FREE TEXT/NARRATIVE: 46 yo white female s/p out-pt. surgery of right great toe amputation one week ago and comes to this hospital for IV antibiotics TID X 6 weeks, and PMHx. HTN and DM. Pt. noted to have elevated BP and intermittent chest pain( 7 days). Pt. states her twin in [place] due to Heart problem. Pt. reports increased stress and not sleeping well Onset: Today Onset Date: 11/07/16 Onset Time: 12:00 Duration: Day(s): Location: Reports: Chest Severity: Moderate Improves with: Reports: None Worsens with: Reports: None Associated Symptoms: Reports: Chest Pain Anterior Chest Pain Score (Numeric/FACES): 10 - Related Data Allergies Allergy/AdvReac Type Severity Reaction Status Date / Time acetaminophen Allergy Vomiting Verified 10/28/16 15:08 Home Meds: Home Meds Aspirin [Sixto Chewable Aspirin] 81 mg PO DAILY 01/29/15 [History] Insulin Aspart [NovoLOG] 10 - 20 units SUBCUT TID 01/29/15 [History] Insulin Detemir [Levemir Flextouch] 30 units SUBCUT BEDTIME 01/29/15 [History] Lisinopril [Prinivil] 10 mg PO DAILY 01/29/15 [History] Gabapentin [Neurontin] 600 mg PO DAILY #30 tablet 02/05/15 [Rx] Metoclopramide [Reglan] 5 mg PO QIDACANDBED PRN 02/05/15 [History] atorvaSTATin [Lipitor] 20 mg PO BEDTIME #30 tablet 02/05/15 [Rx] Calcium Carb & Citrate/Vit D3 [Calcium + D3 ER Tablet] 1 each PO BID 10/11/16 [ History] Loperamide [Imodium AD] 2 mg PO Q3H PRN 10/11/16 [History] Multivitamin [Daily Multiple Vitamin] 1 tab PO DAILY 10/11/16 [History] Potassium Chloride [Klor-Con 10] 10 meq PO BIDMEALS 10/28/16 [History] Past Medical History Cardiovascular History: Reports: High Cholesterol, Hypertension, Syncope, Other (See Below) Other Cardiovascular History: "have heart disease" Respiratory History: Reports: Bronchitis, Recurrent, Pneumonia, Recurrent Gastrointestinal History: Reports: Chronic Diarrhea, GERD Other Gastrointestinal History: Hernia repair on right side of abdomen Genitourinary History: Reports: Diabetic Nephropathy Musculoskeletal History: Reports: Back Pain, Chronic, Other (See Below) Other Musculoskeletal History: spinal stenosis and arthritis in spine Neurological History: Reports: Concussion, Headaches, Chronic, Migraines, Neuropathy, Diabetic Psychiatric History: Reports: Anxiety, Depression, Panic Attack Endocrine/Metabolic History: Reports: Diabetes, Type II Dermatologic History: Reports: Other (See Below) Other Dermatologic History: past history of betancur. patient states 90% of body - Infectious Disease History Infectious Disease History: Reports: Chicken Pox, Pertussis (Whooping Cough) - Past Surgical History Head Surgeries/Procedures: Reports: None Cardiovascular Surgical History: Reports: None Social & Family History - Family History Family Medical History: Unobtainable Cardiac: Reports: High Cholesterol, Hypertension, Other (See Below) Other Cardiac Family History: "bad heart" GI: Reports: Cirrhosis Other GI Family History: "sister has cirrhosis" Musculoskeletal: Reports: Arthritis, Back pain, Chronic, RA Other Musculoskeletal Family History: mom has Ra,dad has chronic back pain and arthritis Neurological: Reports: Alzheimers Disease, Dementia, Other (See Below) Other Neurological Family History: dad has dementia and alzheimers disease and brother has permanent brain damage Psychiatric: Reports: Depression Endocrine/Metabolic: Reports: Diabetes, Type I Other Endocrine/Metabolic Family History: Mom - Tobacco Use Smoking Status *Q: Former Smoker Years of Tobacco use: 1 Packs/Tins Daily: 0.1 Used Tobacco, but Quit: Yes Month Tobacco Last Used: 10/23/15 Second Hand Smoke Exposure: Yes - Caffeine Use Caffeine Use: Reports: Coffee, Tea - Recreational Drug Use Recreational Drug Use: No Drug Use in Last 12 Months: No Recreational Drug Type: Reports: Marijuana/Hashish ED ROS GENERAL - Review of Systems Review Of Systems: See Below Constitutional: Reports: No Symptoms HEENT: Reports: No Symptoms Respiratory: Reports: No Symptoms Cardiovascular: Reports: Chest Pain Endocrine: Reports: No Symptoms GI/Abdominal: Reports: No Symptoms : Reports: No Symptoms Musculoskeletal: Reports: No Symptoms Skin: Reports: No Symptoms Neurological: Reports: No Symptoms Psychiatric: Reports: No Symptoms Hematologic/Lymphatic: Reports: No Symptoms Immunologic: Reports: No Symptoms ED EXAM, GENERAL - Physical Exam Exam: See Below Exam Limited By: No Limitations General Appearance: Alert, WD/WN, No Apparent Distress Eye Exam: Bilateral Eye: EOMI, PERRL Ears: Normal External Exam Nose: Normal Inspection Throat/Mouth: Normal Inspection Head: Atraumatic Neck: Normal Inspection Respiratory/Chest: No Respiratory Distress Cardiovascular: Normal Peripheral Pulses, Regular Rate, Rhythm Peripheral Pulses: 2+: Femoral (L), Femoral (R) GI/Abdominal: Normal Bowel Sounds Back Exam: Normal Inspection, Full Range of Motion Extremities: Normal Inspection, Normal Range of Motion Neurological: Alert, Oriented, CN II-XII Intact Psychiatric: Normal Affect, Normal Mood Skin Exam: Warm, Dry, Intact Lymphatic: No Adenopathy Course - Vital Signs Text/Narrative:: Pt. initially agreed to have medical evaluation and then decided to leave Last Recorded V/S: Last Vital Signs Temp 36.2 C 11/07/16 11:18 Pulse 89 11/07/16 11:18 Resp 14 11/07/16 11:18 BP 187/104 H 11/07/16 11:18 Pulse Ox 98 11/07/16 11:18 - Orders/Labs/Meds Orders: Active Orders 24 hr Category Date Time Status EKG Documentation Completion [RC] STAT Care 11/07/16 11:24 Active CBC WITH AUTO DIFF [HEME] Stat Lab 11/07/16 11:25 Ordered COMPREHENSIVE METABOLIC PN,CMP [CHEM] Stat Lab 11/07/16 11:24 Ordered D-DIMER QUANTITATIVE [COAG] Stat Lab 11/07/16 11:24 Ordered TROPONIN I [CHEM] Stat Lab 11/07/16 11:24 Ordered Meds: Medications Discontinued Medications Generic Name Dose Route Start Last Admin Trade Name Freq PRN Reason Stop Dose Admin Diltiazem HCl 180 mg 11/07/16 11:24 Cardizem Cd PO 11/07/16 11:25 ONETIME ONE Departure - Departure Time of Disposition: 11:41 Disposition: Against Medical Advice 07 Condition: Good Clinical Impression: Uncontrolled hypertension Chest pain Qualifiers: Chest pain type: unspecified Qualified Code(s): R07.9 - Chest pain, unspecified Referrals: Eddi Hicks [Primary Care Provider] - Forms: ED Department Discharge, Refusal of Care AMA Additional Instructions: Take your medications as prescribed only and F/U w/ PCP - My Orders Last 24 Hours: My Active Orders 11/07/16 11:24 EKG Documentation Completion [RC] STAT COMPREHENSIVE METABOLIC PN,CMP [CHEM] Stat D-DIMER QUANTITATIVE [COAG] Stat TROPONIN I [CHEM] Stat 11/07/16 11:25 CBC WITH AUTO DIFF [HEME] Stat - Assessment/Plan Last 24 Hours: My Active Orders 11/07/16 11:24 EKG Documentation Completion [RC] STAT COMPREHENSIVE METABOLIC PN,CMP [CHEM] Stat D-DIMER QUANTITATIVE [COAG] Stat TROPONIN I [CHEM] Stat 11/07/16 11:25 CBC WITH AUTO DIFF [HEME] Stat
--- NOTE | 2016-11-10 10:21 | EKG ---
11/07/2016 - SARA NOGUERA - EKG is sinus rhythm with a rate of 90. Normal MN interval. Normal axis. EKG is within normal limits. [facility] /[id number]
== END 2016-11-07 11:37 | disposition left against medical advice (07) ==
LOC: DL.ED 10:54
DX: R07.9 Chest pain, unspecified (principal); I10 Essential (primary) hypertension; E78.00 Pure hypercholesterolemia, unspecified; K21.9 Gastro-esophageal reflux disease without esophagitis; F41.0 Panic disorder [episodic paroxysmal anxiety]; F32.9 Major depressive disorder, single episode, unspecified; E11.40 Type 2 diabetes mellitus with diabetic neuropathy, unspecified; Z98.890 Other specified postprocedural states; Z87.891 Personal history of nicotine dependence; Z79.4 Long term (current) use of insulin; Z79.82 Long term (current) use of aspirin; Z79.899 Other long term (current) drug therapy; Z88.6 Allergy status to analgesic agent; Z89.411 Acquired absence of right great toe
CPT/HCPCS: 93005; 93010; 99285

== ENCOUNTER 2016-11-18 11:31 | Emergency (ER) | payer MEDICAID, OTHER ==
[2016-11-18 11:46] VITALS: BP 193/96
--- NOTE | 2016-11-18 12:10 | EDM.PDOC ---
ED HPI GENERAL MEDICAL PROBLEM - General Chief Complaint: Cardiovascular Problem Stated Complaint: BLOOD PRESSURE HIGH Time Seen by Provider: 11/18/16 11:58 Source of Information: Reports: Patient History Limitations: Reports: No Limitations - History of Present Illness INITIAL COMMENTS - FREE TEXT/NARRATIVE: This 46 yo female patient reports to the ED after getting IV antibiotics due to high blood pressure readings. The patient reports the nursing staff informed her that with a blood pressure was too high and that she could have a heart attack or stroke due to her blood pressure. The patient has had high blood pressure reading all weak, but has not seen her primary care facility. The patient reports she has been having intermittent chest pains for the past couple of months. The patient has been seen in the ED for similar symptoms in the past month, but left against medical advice. Onset: Gradual Duration: Week(s):, Intermittent Location: Reports: Chest Quality: Reports: Ache, Sharp Severity: Moderate Improves with: Reports: None Worsens with: Reports: None Associated Symptoms: Reports: No Other Symptoms Right Feet Pain Score (Numeric/FACES): 8 - Related Data Allergies Allergy/AdvReac Type Severity Reaction Status Date / Time acetaminophen Allergy Vomiting Verified 11/16/16 10:45 Home Meds: Home Meds Aspirin [Sixto Chewable Aspirin] 81 mg PO DAILY 01/29/15 [History] Insulin Aspart [NovoLOG] 10 units SUBCUT TID 01/29/15 [History] Insulin Detemir [Levemir Flextouch] 30 units SUBCUT BEDTIME 01/29/15 [History] Lisinopril [Prinivil] 10 mg PO DAILY 01/29/15 [History] Gabapentin [Neurontin] 600 mg PO DAILY #30 tablet 02/05/15 [Rx] Metoclopramide [Reglan] 5 mg PO QIDACANDBED PRN 02/05/15 [History] atorvaSTATin [Lipitor] 20 mg PO BEDTIME #30 tablet 02/05/15 [Rx] Calcium Carb & Citrate/Vit D3 [Calcium + D3 ER Tablet] 1 each PO BID 10/11/16 [ History] Loperamide [Imodium AD] 2 mg PO Q3H PRN 10/11/16 [History] Multivitamin [Daily Multiple Vitamin] 1 tab PO DAILY 10/11/16 [History] Potassium Chloride [Klor-Con 10] 10 meq PO BIDMEALS 10/28/16 [History] Past Medical History Cardiovascular History: Reports: High Cholesterol, Hypertension, Syncope, Other (See Below) Other Cardiovascular History: "have heart disease" Respiratory History: Reports: Bronchitis, Recurrent, Pneumonia, Recurrent Gastrointestinal History: Reports: Chronic Diarrhea, GERD Other Gastrointestinal History: Hernia repair on right side of abdomen Genitourinary History: Reports: Diabetic Nephropathy Musculoskeletal History: Reports: Back Pain, Chronic, Other (See Below) Other Musculoskeletal History: spinal stenosis and arthritis in spine Neurological History: Reports: Concussion, Headaches, Chronic, Migraines, Neuropathy, Diabetic Psychiatric History: Reports: Anxiety, Depression, Panic Attack Endocrine/Metabolic History: Reports: Diabetes, Type II Dermatologic History: Reports: Other (See Below) Other Dermatologic History: past history of betancur. patient states 90% of body - Infectious Disease History Infectious Disease History: Reports: Chicken Pox, Pertussis (Whooping Cough) - Past Surgical History Head Surgeries/Procedures: Reports: None Cardiovascular Surgical History: Reports: None GI Surgical History: Reports: Hernia Repair/Other Social & Family History - Family History Family Medical History: Unobtainable Cardiac: Reports: High Cholesterol, Hypertension, Other (See Below) Other Cardiac Family History: "bad heart" GI: Reports: Cirrhosis Other GI Family History: "sister has cirrhosis" Musculoskeletal: Reports: Arthritis, Back pain, Chronic, RA Other Musculoskeletal Family History: mom has Ra,dad has chronic back pain and arthritis Neurological: Reports: Alzheimers Disease, Dementia, Other (See Below) Other Neurological Family History: dad has dementia and alzheimers disease and brother has permanent brain damage Psychiatric: Reports: Depression Endocrine/Metabolic: Reports: Diabetes, Type I Other Endocrine/Metabolic Family History: Mom - Tobacco Use Smoking Status *Q: Former Smoker Years of Tobacco use: 4 Packs/Tins Daily: 0.1 Used Tobacco, but Quit: Yes Month Tobacco Last Used: 2016 Tobacco Use Comment: Pt smoked for 4 years 1 pack a day, quit 3 months ago Second Hand Smoke Exposure: Yes - Caffeine Use Caffeine Use: Reports: Coffee, Tea - Recreational Drug Use Recreational Drug Use: No Drug Use in Last 12 Months: No Recreational Drug Type: Reports: Marijuana/Hashish ED ROS GENERAL - Review of Systems Review Of Systems: ROS reveals no pertinent complaints other than HPI. ED EXAM, GENERAL - Physical Exam Exam: See Below Exam Limited By: No Limitations General Appearance: Alert, WD/WN, Mild Distress Eye Exam: Bilateral Eye: EOMI, Normal Inspection, PERRL Ears: Normal External Exam, Normal Canal, Hearing Grossly Normal, Normal TMs Nose: Normal Inspection, Normal Mucosa, No Blood Throat/Mouth: Normal Inspection, Normal Lips, Normal Teeth, Normal Gums, Normal Oropharynx, Normal Voice, No Airway Compromise Head: Atraumatic, Normocephalic Neck: Normal Inspection, Supple, Non-Tender, Full Range of Motion Respiratory/Chest: No Respiratory Distress, Lungs Clear, Normal Breath Sounds, No Accessory Muscle Use, Chest Non-Tender Cardiovascular: Normal Peripheral Pulses, Regular Rate, Rhythm, No Edema, No Gallop, No JVD, No Murmur, No Rub GI/Abdominal: Normal Bowel Sounds, Soft, Non-Tender, No Organomegaly, No Distention, No Abnormal Bruit, No Mass, Other (obese) (Female) Exam: Deferred Rectal (Female) Exam: Deferred Back Exam: Normal Inspection, Full Range of Motion, NT Extremities: Normal Inspection, Normal Range of Motion, Non-Tender, Normal Capillary Refill, No Pedal Edema Neurological: Alert, Oriented, CN II-XII Intact, Normal Cognition, Normal Gait, Normal Reflexes, No Motor/Sensory Deficits Psychiatric: Normal Affect, Normal Mood Skin Exam: Warm, Dry, Intact, Normal Color, No Rash Lymphatic: No Adenopathy Course - Vital Signs Last Recorded V/S: Last Vital Signs Temp 36.0 C 11/18/16 11:44 Pulse 71 11/18/16 11:44 Resp 16 11/18/16 11:44 BP 193/96 H 11/18/16 11:44 Pulse Ox 99 11/18/16 11:44 - Orders/Labs/Meds Orders: Active Orders 24 hr Category Date Time Status EKG Documentation Completion [RC] URGENT Care 11/18/16 12:00 Active Labs: Laboratory Tests 11/18/16 11/18/16 11/18/16 Range/Units 12:10 12:10 12:10 WBC 7.0 (5.0-10.0) 10^3/uL RBC 3.44 L (4.2-5.4) 10^6/uL Hgb 9.5 L D (12.0-16.0) g/dL Hct 30.3 L (37.0-47.0) % MCV 88.1 D (80-100) fL MCH 27.6 (27.0-34.0) pg MCHC 31.4 L (33.0-35.0) g/dL Plt Count 220 (150-450) 10^3/uL Neut % (Auto) 51.8 (42.2-75.2) % Lymph % (Auto) 35.8 (20.5-50.1) % Roberts % (Auto) 7.1 (2-8) % Eos % (Auto) 4.7 H (1.0-3.0) % Baso % (Auto) 0.6 (0.0-1.0) % D-Dimer, Quantitative 1090 H (0-400) ng/mL Sodium 137 (135-145) mmol/L Potassium 5.9 H (3.6-5.0) mmol/L Chloride 109 (101-111) mmol/L Carbon Dioxide 22.0 (21.0-31.0) mmol/L Anion Gap 11.9 BUN 32 H (7-18) mg/dL Creatinine 1.2 (0.6-1.3) mg/dL Est Cr Clr Drug Dosing 51.12 mL/min Estimated GFR (MDRD) 49 BUN/Creatinine Ratio 26.66 Glucose 116 H (74-105) mg/dL Calcium 8.8 (8.4-10.2) mg/dl Total Bilirubin 0.4 (0.2-1.0) mg/dL AST 27 (10-42) IU/L ALT 29 (10-60) IU/L Alkaline Phosphatase 121 (42-121) IU/L Troponin I < 0.02 (0.00-0.02) ng/ml Total Protein 7.4 (6.7-8.2) g/dl Albumin 3.0 L (3.2-5.5) g/dl Globulin 4.4 Albumin/Globulin Ratio 0.68 Meds: Medications Discontinued Medications Generic Name Dose Route Start Last Admin Trade Name Freq PRN Reason Stop Dose Admin Sodium Chloride 1,000 mls @ 999 mls/hr 11/18/16 12:43 11/18/16 14:27 Normal Saline IV 11/18/16 13:43 999 mls/hr .BOLUS ONE Administration Iopamidol 100 ml 11/18/16 12:43 11/18/16 14:22 Isovue-370 (76%) IVPUSH 11/18/16 12:44 63 ml ONETIME ONE Administration Departure - Departure Time of Disposition: 15:40 Disposition: Home, Self-Care 01 Condition: Fair Clinical Impression: Non-cardiac chest pain Hypertension Qualifiers: Hypertension type: unspecified Qualified Code(s): I10 - Essential (primary) hypertension Instructions: Hypertension, [id number], Nonspecific Chest Pain, [id number] Forms: ED Department Discharge Care Plan Goals: The patient was advised of the examination, lab, x-ray, and CT results during the visit. The patient was encouraged to follow-up with her primary care facility for continued evaluation and management of her hypertension, anxiety and elevated potassium levels. If the patient has any additional symptoms or concerns, the patient should either visit her primary care facility or return to the emergency department. - My Orders Last 24 Hours: My Active Orders 11/18/16 12:00 EKG Documentation Completion [RC] URGENT - Assessment/Plan Last 24 Hours: My Active Orders 11/18/16 12:00 EKG Documentation Completion [RC] URGENT
[2016-11-18 12:38] LABS: CHLORIDE,CL 109 mmol/L (101-111); SODIUM,NA 137 mmol/L (135-145)
[2016-11-18] MEDS ORDERED: Sodium Chloride 0.9% 1,000 ML IV ONE (12:43)
[2016-11-18] MEDS ORDERED: Iopamidol 755 Mg/ML 100 ML Bottle IVPUSH ONE (12:43)
--- NOTE | 2016-11-18 12:43 | CR ---
Clinical history: 46-year-old female intermittent chest pain. Interpretation: Abnormal. Prominent cardiac silhouette and pulmonary vascular "show" probably more technique (AP portable versu s PA) when compared to 21 January 2012 exam however early CHF a differential consideration. BNP? Ed vasu? EKG? Clinical? No pleural effusions. Simone thorax unremarkable. No lung mass hilar lymphadenopathy or focal lobar pneumonia. No atelectasi s/collapse. No pneumothorax.
--- NOTE | 2016-11-18 14:38 | CT ---
Clinical history: 46-year-old hypertensive 160 pound diabetic female who had a recent toe amputation (2 weeks ago) and now complaining of chest pain and shortness of breath (serum D dimer 1080). Rule ou t pulmonary embolism. Scan technique: Volume acquisition of data obtained with patient lying supine on the Siemens multi sl ice CT scanner during intravenous ministration 63 cc nonionic Isovue 370 contrast at 4.8 mL/s (20-gau ge needle) [place], [place]. All data archived in the PACS system for storage, reformatting and study. (Respiratory motion artifact) Interpretation: Abnormal. 1. *Cardiomegaly, generalized pulmonary venous congestion (cephalization of flow) and large bibasilar dependent pleural effusions all suggesting cardiovascular decompensation or CHF. Clinical? Silent [place] ? 2. No pericardial effusion. Normal caliber thoracic aorta. 3. Underlying platelike atelectasis both lung bases. No lung mass, hilar lymphadenopathy or focal lob ar pneumonia. 4. *No sign of intraluminal filling defect or thrombus pulmonary artery circulation and no peripheral pleural-based wedge shaped infarcts or abnormal areas of focal lobar oligemia. 5. Collapsed midthoracic vertebral body (vertebral plana) and chronic hypertrophic arthritic changes (spondylosis) entire spine. CONCLUSION: Heart failure. Low probability pulmonary embolism/infarct.
--- NOTE | 2016-11-19 11:48 | EKG ---
11/18/2016 - SARA NOGUERA - EKG per my reading shows sinus rhythm at a rate of 68. [facility] /[id number]
== END 2016-11-18 15:47 | disposition home or self-care (01) ==
LOC: DL.ED 11:31
DX: I10 Essential (primary) hypertension (principal); R07.89 Other chest pain; E78.00 Pure hypercholesterolemia, unspecified; K21.9 Gastro-esophageal reflux disease without esophagitis; E11.21 Type 2 diabetes mellitus with diabetic nephropathy; Z79.4 Long term (current) use of insulin; Z87.891 Personal history of nicotine dependence; Z88.8 Allergy status to other drugs, medicaments and biological substances; Z79.82 Long term (current) use of aspirin; Z79.899 Other long term (current) drug therapy
CPT/HCPCS: 36415; 71010; 71260; 80053; 84484; 85025; 85379; 93005; 96360; 99285; J7030; Q9967

== ENCOUNTER 2017-03-11 16:25 | Observation (INO) | payer MEDICAID, OTHER ==
[2017-03-11] MEDS ORDERED: Sodium Chloride 0.9% 10 ML Syringe FLUSH PRN (16:28)
--- NOTE | 2017-03-11 16:53 | CR ---
Clinical history: 46-year-old female complaining of chest pain. Interpretation: Normal cardiac silhouette without pulmonary venous congestion (relative improvement s flori film 10 November 2016), alveolar edema or dependent pleural fluid accumulation. Hypertrophic arthritic changes of spine. No lung mass, hilar lymphadenopathy or focal lobar pneumonia. No atelectasis/collapse. No pneumothorax. CONCLUSION: Radiographic improvement since AP film 18 November 2016.
[2017-03-11 17:00] LABS: ANION GAP 11.4; CHLORIDE,CL 114 mmol/L (101-111); SODIUM,NA 138 mmol/L (135-145)
[2017-03-11] MEDS ORDERED: Sodium Polystyrene Sulfonate 15 GM/60 ML Susp 60 ML Bot PO ONE (17:18)
[2017-03-11] MEDS ORDERED: Calcium Gluconate 10% 1 GM/10 ML SDV IVPUSH ONE (18:11)
[2017-03-11] MEDS ORDERED: 50% Dextrose in Water 50 ML Syringe IVPUSH ONE (18:11)
[2017-03-11] MEDS ORDERED: Insulin Aspart 100 Units/ML 3 ML Pen SUBCUT ONE (18:12)
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
[2017-03-11] MEDS ORDERED: oxyCODONE 5 MG Tab PO PRN (18:39)
[2017-03-11] MEDS: Sodium Chloride 0.9% 1,000 ML IV SCH (19:41)
[2017-03-11] MEDS ORDERED: Insulin Aspart 100 Units/ML 3 ML Pen SUBCUT SCH (21:00)
[2017-03-11] MEDS ORDERED: Insulin Detemir 100 Units/ML 3 ML Pen SUBCUT SCH (21:00)
[2017-03-11] MEDS: oxyCODONE 5 MG Tab PO PRN (21:24)
[2017-03-11] MEDS: Furosemide 40 MG Tab PO SCH (21:24)
[2017-03-11] MEDS: Zolpidem 5 MG Tab PO PRN (21:24)
[2017-03-11] MEDS: atorvaSTATin 20 MG Tab PO SCH (21:24)
[2017-03-11] MEDS: Heparin Sodium 5,000 Units/ML Vial SUBCUT SCH (21:25)
[2017-03-11 21:30] LABS: ANION GAP 8.7
[2017-03-12] MEDS: oxyCODONE 5 MG Tab PO PRN (02:58)
[2017-03-12] MEDS: Heparin Sodium 5,000 Units/ML Vial SUBCUT SCH ×3 (06:09→21:03)
[2017-03-12] MEDS: Sodium Chloride 0.9% 1,000 ML IV SCH ×2 (06:10→17:57)
[2017-03-12 06:51] LABS: ANION GAP 10.8
[2017-03-12] MEDS: Gabapentin 300 MG Cap PO SCH (08:14)
[2017-03-12] MEDS: Multivitamins,Therapeutic Tab PO SCH (08:15)
[2017-03-12] MEDS: Furosemide 40 MG Tab PO SCH ×2 (08:15→21:03)
[2017-03-12] MEDS: Aspirin 81 MG Tab.Chew PO SCH (08:15)
[2017-03-12] MEDS: Insulin Aspart 100 Units/ML 3 ML Pen SUBCUT SCH ×3 (09:51→17:55)
[2017-03-12] MEDS ORDERED: Sodium Polystyrene Sulfonate 15 GM/60 ML Susp 60 ML Bot PO ONE (11:15)
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
[2017-03-12] MEDS: amLODIPine 5 MG Tab PO SCH (12:33)
[2017-03-12] MEDS ORDERED: Sodium Polystyrene Sulfonate 15 GM/60 ML Susp 60 ML Bot ONE (12:47)
[2017-03-12 15:48] LABS: ANION GAP 10.9
[2017-03-12] MEDS: atorvaSTATin 20 MG Tab PO SCH (21:03)
[2017-03-12] MEDS: Zolpidem 5 MG Tab PO PRN (21:03)
[2017-03-13] MEDS: Sodium Chloride 0.9% 1,000 ML IV SCH (03:03)
[2017-03-13] MEDS: Heparin Sodium 5,000 Units/ML Vial SUBCUT SCH ×2 (05:48→13:23)
[2017-03-13 06:53] LABS: ANION GAP 8.7
[2017-03-13] MEDS: Insulin Aspart 100 Units/ML 3 ML Pen SUBCUT SCH ×2 (08:07→12:26)
[2017-03-13] MEDS: Multivitamins,Therapeutic Tab PO SCH (08:16)
[2017-03-13] MEDS: Furosemide 40 MG Tab PO SCH (08:16)
[2017-03-13] MEDS: Aspirin 81 MG Tab.Chew PO SCH (08:16)
[2017-03-13] MEDS: Gabapentin 300 MG Cap PO SCH (08:16)
[2017-03-13] MEDS: amLODIPine 5 MG Tab PO SCH (08:17)
--- NOTE | 2017-03-13 09:25 | EDM.PDOC ---
Scribed by Elisabet Qureshi 03/13/17 0922 for Marisol Tian NP ED HPI GENERAL MEDICAL PROBLEM - General Chief Complaint: Cardiovascular Problem Stated Complaint: HIGH POTASSIUM Time Seen by Provider: 03/11/17 16:29 Source of Information: Reports: Patient, RN, RN Notes Reviewed History Limitations: Reports: No Limitations - History of Present Illness INITIAL COMMENTS - FREE TEXT/NARRATIVE: Patient presents to ER per [facility] from [facility]. Patient states she found out today. Her kidneys weren't working well and her potassium was high. Urine output decreased. Drinking a lot of fluid and decreased outpatient. Right lung pneumonia recently and influenza. She also has fever, chills, nausea, vomiting, diarrhea and shortness of breath. No chest pains. She has had stomach pain andback pain today 11/30. Duration: Getting Worse Quality: Reports: Ache Severity: Mild Improves with: Reports: None Worsens with: Reports: None Associated Symptoms: Reports: No Other Symptoms Right Lower Abdomen Pain Score (Numeric/FACES): 5 - Related Data Allergies Allergy/AdvReac Type Severity Reaction Status Date / Time acetaminophen Allergy Vomiting Verified 03/11/17 18:06 Home Meds: Home Meds Aspirin [Sixto Chewable Aspirin] 81 mg PO DAILY 01/29/15 [History] Insulin Aspart [NovoLOG] 10 units SUBCUT TID 01/29/15 [History] Insulin Detemir [Levemir Flextouch] 30 units SUBCUT BEDTIME 01/29/15 [History] Lisinopril [Prinivil] 10 mg PO DAILY 01/29/15 [History] Gabapentin [Neurontin] 600 mg PO DAILY #30 tablet 02/05/15 [Rx] atorvaSTATin [Lipitor] 20 mg PO BEDTIME #30 tablet 02/05/15 [Rx] Calcium Carb & Citrate/Vit D3 [Calcium + D3 ER Tablet] 1 each PO BID 10/11/16 [ History] Multivitamin [Daily Multiple Vitamin] 1 tab PO DAILY 10/11/16 [History] Potassium Chloride [Klor-Con 10] 10 meq PO BIDMEALS 10/28/16 [History] Ascorbic Acid 250 mg PO BID 03/12/17 [History] Ferrous Gluconate 1 tab PO BID 03/12/17 [History] Furosemide [Furosemide] 40 mg PO BID 03/12/17 [History] Loperamide [Imodium] 2 mg PO DAILY 03/12/17 [History] Metoprolol Tartrate 25 mg PO BID 03/12/17 [History] Past Medical History Cardiovascular History: Reports: High Cholesterol, Hypertension, Syncope, Other (See Below) Other Cardiovascular History: "have heart disease" Respiratory History: Reports: Bronchitis, Recurrent, Pneumonia, Recurrent Gastrointestinal History: Reports: Chronic Diarrhea, GERD Other Gastrointestinal History: Hernia repair on right side of abdomen Genitourinary History: Reports: Diabetic Nephropathy Musculoskeletal History: Reports: Arthritis, Back Pain, Chronic, Other (See Below) Other Musculoskeletal History: spinal stenosis and arthritis in spine Neurological History: Reports: Concussion, Headaches, Chronic, Migraines, Neuropathy, Diabetic Psychiatric History: Reports: Anxiety, Depression, Panic Attack Endocrine/Metabolic History: Reports: Diabetes, Type II Dermatologic History: Reports: Other (See Below) (betancur) Other Dermatologic History: past history of betancur. 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) Social & Family History - Family History Family Medical History: Noncontributory Cardiac: Reports: High Cholesterol, Hypertension, Other (See Below) Other Cardiac Family History: "bad heart" GI: Reports: Cirrhosis Other GI Family History: "sister has cirrhosis" Musculoskeletal: Reports: Arthritis, Back pain, Chronic, RA Other Musculoskeletal Family History: mom has Ra,dad has chronic back pain and arthritis Neurological: Reports: Alzheimers Disease, Dementia, Other (See Below) Other Neurological Family History: dad has dementia and alzheimers disease and brother has permanent brain damage Psychiatric: Reports: Depression Endocrine/Metabolic: Reports: Diabetes, Type I Other Endocrine/Metabolic Family History: Mom - Tobacco Use Smoking Status *Q: Former Smoker Years of Tobacco use: 4 Packs/Tins Daily: 0.1 Used Tobacco, but Quit: Yes Month Tobacco Last Used: 08/2016 Second Hand Smoke Exposure: Yes - Caffeine Use Caffeine Use: Reports: Coffee, Soda, Tea - Recreational Drug Use Recreational Drug Use: No Drug Use in Last 12 Months: No Recreational Drug Type: Reports: Marijuana/Hashish ED ROS GENERAL - Review of Systems Review Of Systems: ROS reveals no pertinent complaints other than HPI. ED EXAM, GENERAL - Physical Exam Exam: See Below Exam Limited By: No Limitations General Appearance: Alert, WD/WN, No Apparent Distress Eye Exam: Bilateral Eye: Other (has glasses) Ears: Normal External Exam, Normal Canal, Hearing Grossly Normal, Normal TMs Nose: Normal Inspection, Normal Mucosa, No Blood Throat/Mouth: Normal Inspection, Normal Lips, Normal Teeth, Normal Gums, Normal Oropharynx, Normal Voice, No Airway Compromise Head: Atraumatic, Normocephalic Neck: Normal Inspection, Supple, Non-Tender, Full Range of Motion Respiratory/Chest: Crackles (left base) Cardiovascular: Normal Peripheral Pulses, Regular Rate, Rhythm, No Edema, No Gallop, No JVD, No Murmur, No Rub GI/Abdominal: Normal Bowel Sounds, Soft, Non-Tender, No Organomegaly, No Distention, No Abnormal Bruit, No Mass (Female) Exam: Other (decreased output) Rectal (Female) Exam: Deferred Back Exam: Normal Inspection, Full Range of Motion, NT Extremities: Normal Inspection, Normal Range of Motion, Non-Tender, Normal Capillary Refill, No Pedal Edema Neurological: Alert, Oriented, CN II-XII Intact, Normal Cognition, Normal Gait, Normal Reflexes, No Motor/Sensory Deficits Psychiatric: Normal Affect, Normal Mood Skin Exam: Other (healedburnse onback and arms from many years ago.) Lymphatic: No Adenopathy EKG INTERPRETATION EKG Date: 03/11/17 Time: 16:19 Rhythm: Other (sinus rhythm) Rate (Beats/Min): 72 [place]: Normal P-Wave: Present QRS: Normal ST-T: Normal QT: Normal Course - Vital Signs Last Recorded V/S: Last Vital Signs Temp 98.3 F 03/13/17 08:16 Pulse 75 03/13/17 08:16 Resp 20 03/13/17 08:16 BP 142/85 H 03/13/17 08:17 Pulse Ox 100 03/13/17 08:16 - Orders/Labs/Meds Orders: Active Orders 24 hr Category Date Time Status Aspirin Med 03/12/17 09:00 Active 81 mg PO DAILY Gabapentin [Neurontin] Med 03/12/17 09:00 Active 600 mg PO DAILY Multivitamins,Therapeutic [Thera] Med 03/12/17 09:00 Active 1 each PO DAILY Medication Orders Amlodipine Besylate (Norvasc) 5 mg PO DAILY [facility] Last Admin: 03/13/17 08:17 Dose: 5 mg Admin: 03/12/17 12:33 Dose: 5 mg Aspirin (Aspirin) 81 mg PO DAILY [facility] Last Admin: 03/13/17 08:16 Dose: 81 mg Admin: 03/12/17 08:15 Dose: 81 mg Atorvastatin Calcium (Lipitor) 20 mg PO BEDTIME [facility] Last Admin: 03/12/17 21:03 Dose: 20 mg Admin: 03/11/17 21:24 Dose: 20 mg Furosemide (Lasix) 40 mg PO BID [facility] Last Admin: 03/13/17 08:16 Dose: 40 mg Admin: 03/12/17 21:03 Dose: 40 mg Admin: 03/12/17 08:15 Dose: 40 mg Admin: 03/11/17 21:24 Dose: 40 mg Gabapentin (Neurontin) 600 mg PO DAILY [facility] Last Admin: 03/13/17 08:16 Dose: 600 mg Admin: 03/12/17 08:14 Dose: 600 mg Heparin Sodium (Porcine) (Heparin Sodium) 5,000 units SUBCUT Q8HR [facility] Last Admin: 03/13/17 05:48 Dose: 5,000 units Admin: 03/12/17 21:03 Dose: 5,000 units Admin: 03/12/17 14:56 Dose: 5,000 units Admin: 03/12/17 06:09 Dose: 5,000 units Admin: 03/11/17 21:25 Dose: 5,000 units Sodium Chloride (Normal Saline) 1,000 mls @ 100 mls/hr IV ASDIRECTED [facility] Last Admin: 03/13/17 03:03 Dose: 100 mls/hr Infusion: 03/13/17 03:03 Dose: 100 mls/hr Admin: 03/12/17 17:57 Dose: 100 mls/hr Infusion: 03/12/17 16:10 Dose: 100 mls/hr Admin: 03/12/17 06:10 Dose: 100 mls/hr Infusion: 03/12/17 05:41 Dose: 100 mls/hr Admin: 03/11/17 19:41 Dose: 100 mls/hr Insulin Aspart (Novolog) 0 unit SUBCUT TIDAC [facility] PRN Reason: Protocol Last Admin: 03/13/17 08:07 Dose: Admin: 03/12/17 17:55 Dose: Not Given Admin: 03/12/17 12:33 Dose: Not Given Admin: 03/12/17 09:51 Dose: Not Given Multivitamins (Thera) 1 each PO DAILY NARAYAN Last Admin: 03/13/17 08:16 Dose: 1 each Admin: 03/12/17 08:15 Dose: 1 each Oxycodone HCl (Oxycodone) 5 mg PO Q4H PRN PRN Reason: Pain (moderate 4-6) Last Admin: 03/12/17 02:58 Dose: 5 mg Admin: 03/11/17 21:24 Dose: 5 mg Oxycodone HCl (Oxycodone) 5 mg PO Q6H PRN PRN Reason: Pain Sodium Chloride (Saline Flush) 10 ml FLUSH ASDIRECTED PRN PRN Reason: Keep Vein Open Last Admin: 03/11/17 16:40 Dose: 10 ml Zolpidem Tartrate (Ambien) 5 mg PO BEDTIME PRN PRN Reason: Sleep Last Admin: 03/12/17 21:03 Dose: 5 mg Admin: 03/11/17 21:24 Dose: 5 mg Labs: Laboratory Tests 03/11/17 03/11/17 03/11/17 Range/Units 16:32 16:32 16:32 WBC 8.8 (5.0-10.0) 10^3/uL RBC 3.77 L (4.2-5.4) 10^6/uL Hgb 10.2 L (12.0-16.0) g/dL Hct 32.1 L (37.0-47.0) % MCV 85.1 D (80-100) fL MCH 27.1 (27.0-34.0) pg MCHC 31.8 L (33.0-35.0) g/dL Plt Count 221 (150-450) 10^3/uL Neut % (Auto) 59.2 (42.2-75.2) % Lymph % (Auto) 29.9 (20.5-50.1) % [place] % (Auto) 6.8 (2-8) % Eos % (Auto) 3.4 H (1.0-3.0) % Baso % (Auto) 0.7 (0.0-1.0) % Sodium 138 (135-145) mmol/L Potassium 6.4 H (3.6-5.0) mmol/L Chloride 114 H (101-111) mmol/L Carbon Dioxide 19.0 L (21.0-31.0) mmol/L Anion Gap 11.4 BUN 44 H (7-18) mg/dL Creatinine 1.4 H (0.6-1.3) mg/dL Est Cr Clr Drug Dosing TNP Estimated GFR (MDRD) 41 BUN/Creatinine Ratio 31.42 Glucose 86 (74-105) mg/dL Calcium 8.7 (8.4-10.2) mg/dl Magnesium 2.3 (1.8-2.5) mg/dL Total Bilirubin 0.5 (0.2-1.0) mg/dL AST 18 (10-42) IU/L ALT 15 (10-60) IU/L Alkaline Phosphatase 78 (42-121) IU/L Troponin I < 0.02 (0.00-0.02) ng/ml B-Natriuretic Peptide 500 H (0-100) pg/ml Total Protein 7.3 (6.7-8.2) g/dl Albumin 3.2 (3.2-5.5) g/dl Globulin 4.1 Albumin/Globulin Ratio 0.78 Urine Color (YELLOW) Urine Appearance (CLEAR) Urine pH (5.0-9.0) Ur Specific [place] (1.005-1.030) Urine Protein (NEGATIVE) Urine Glucose (UA) (NEGATIVE) Urine Ketones (NEGATIVE) Urine Occult Blood (NEGATIVE) Urine Nitrite (NEGATIVE) Urine Bilirubin (NEGATIVE) Urine Urobilinogen (0.2-1.0) mg/dL Ur Leukocyte Esterase (NEGATIVE) Urine RBC /HPF Urine WBC (0-5/HPF) /HPF Ur Epithelial Cells /HPF Amorphous Sediment (0/HPF) /HPF Urine Bacteria (0-FEW/HPF) /HPF Urine Mucus /LPF Urine HCG, Qual Urine Opiates Screen Negative (NEGATIVE) Ur Oxycodone Screen Negative (NEGATIVE) Urine Methadone Screen Negative (NEGATIVE) Ur Barbiturates Screen Negative (NEGATIVE) U Tricyclic Antidepress Negative (NEGATIVE) Ur Phencyclidine Scrn Negative (NEGATIVE) Ur Amphetamine Screen Negative (NEGATIVE) U Methamphetamines Scrn Negative (NEGATIVE) Urine MDMA Screen Negative (NEGATIVE) U Benzodiazepines Scrn Negative (NEGATIVE) Urine Cocaine Screen Negative (NEGATIVE) U Marijuana (THC) Screen Positive H (NEGATIVE) Ethyl Alcohol < 5 mg/dL 03/11/17 03/11/17 Range/Units 16:32 16:32 WBC (5.0-10.0) 10^3/uL RBC (4.2-5.4) 10^6/uL Hgb (12.0-16.0) g/dL Hct (37.0-47.0) % MCV (80-100) fL MCH (27.0-34.0) pg MCHC (33.0-35.0) g/dL Plt Count (150-450) 10^3/uL Neut % (Auto) (42.2-75.2) % Lymph % (Auto) (20.5-50.1) % [place] % (Auto) (2-8) % Eos % (Auto) (1.0-3.0) % Baso % (Auto) (0.0-1.0) % Sodium (135-145) mmol/L Potassium (3.6-5.0) mmol/L Chloride (101-111) mmol/L Carbon Dioxide (21.0-31.0) mmol/L Anion Gap BUN (7-18) mg/dL Creatinine (0.6-1.3) mg/dL Est Cr Clr Drug Dosing Estimated GFR (MDRD) BUN/Creatinine Ratio Glucose (74-105) mg/dL Calcium (8.4-10.2) mg/dl Magnesium (1.8-2.5) mg/dL Total Bilirubin (0.2-1.0) mg/dL AST (10-42) IU/L ALT (10-60) IU/L Alkaline Phosphatase (42-121) IU/L Troponin I (0.00-0.02) ng/ml B-Natriuretic Peptide (0-100) pg/ml Total Protein (6.7-8.2) g/dl Albumin (3.2-5.5) g/dl Globulin Albumin/Globulin Ratio Urine Color Yellow (YELLOW) Urine Appearance Cloudy (CLEAR) Urine pH 5.5 (5.0-9.0) Ur Specific [place] 1.025 (1.005-1.030) Urine Protein >=300 H (NEGATIVE) Urine Glucose (UA) Negative (NEGATIVE) Urine Ketones Negative (NEGATIVE) Urine Occult Blood Moderate H (NEGATIVE) Urine Nitrite Negative (NEGATIVE) Urine Bilirubin Negative (NEGATIVE) Urine Urobilinogen 0.2 (0.2-1.0) mg/dL Ur Leukocyte Esterase Negative (NEGATIVE) Urine RBC 40-50 H /HPF Urine WBC 5-10 H (0-5/HPF) /HPF Ur Epithelial Cells Few /HPF Amorphous Sediment Few (0/HPF) /HPF Urine Bacteria Few (0-FEW/HPF) /HPF Urine Mucus Rare /LPF Urine HCG, Qual Negative Urine Opiates Screen (NEGATIVE) Ur Oxycodone Screen (NEGATIVE) Urine Methadone Screen (NEGATIVE) Ur Barbiturates Screen (NEGATIVE) U Tricyclic Antidepress (NEGATIVE) Ur Phencyclidine Scrn (NEGATIVE) Ur Amphetamine Screen (NEGATIVE) U Methamphetamines Scrn (NEGATIVE) Urine MDMA Screen (NEGATIVE) U Benzodiazepines Scrn (NEGATIVE) Urine Cocaine Screen (NEGATIVE) U Marijuana (THC) Screen (NEGATIVE) Ethyl Alcohol mg/dL Meds: Medications Generic Name Dose Route Start Last Admin Trade Name Freq PRN Reason Stop Dose Admin Amlodipine Besylate 5 mg 03/12/17 11:30 03/13/17 08:17 Norvasc PO 5 mg DAILY NARAYAN Administration Aspirin 81 mg 03/12/17 09:00 03/13/17 08:16 Aspirin PO 81 mg DAILY NARAYAN Administration Atorvastatin Calcium 20 mg 03/11/17 21:00 03/12/17 21:03 Lipitor PO 20 mg BEDTIME NARAYAN Administration Furosemide 40 mg 03/11/17 21:00 03/13/17 08:16 Lasix PO 40 mg BID NARAYAN Administration Gabapentin 600 mg 03/12/17 09:00 03/13/17 08:16 Neurontin PO 600 mg DAILY NARAYAN Administration Heparin Sodium (Porcine) 5,000 units 03/11/17 22:00 03/13/17 05:48 Heparin Sodium SUBCUT 5,000 units Q8HR NARAYAN Administration Sodium Chloride 1,000 mls @ 100 mls/hr 03/11/17 18:15 03/13/17 03:03 Normal Saline IV 100 mls/hr ASDIRECTED NARAYAN Administration Insulin Aspart 0 unit 03/12/17 08:00 03/13/17 08:07 Novolog SUBCUT Not Given TIDAC [facility] Protocol Multivitamins 1 each 03/12/17 09:00 03/13/17 08:16 Thera PO 1 each DAILY NARAYAN Administration Oxycodone HCl 5 mg 03/11/17 18:17 03/12/17 02:58 Oxycodone PO 5 mg Q4H PRN Administration Pain (moderate 4-6) Oxycodone HCl 5 mg 03/11/17 18:39 Oxycodone PO Q6H PRN Pain Sodium Chloride 10 ml 03/11/17 16:28 03/11/17 16:40 Saline Flush FLUSH 10 ml ASDIRECTED PRN Administration Keep Vein Open Zolpidem Tartrate 5 mg 03/11/17 18:17 03/12/17 21:03 Ambien PO 5 mg BEDTIME PRN Administration Sleep Discontinued Medications Generic Name Dose Route Start Last Admin Trade Name Freq PRN Reason Stop Dose Admin Calcium Gluconate 2 gm 03/11/17 18:11 03/11/17 19:47 Calcium Gluconate IVPUSH 03/11/17 18:12 2 gm ONETIME ONE Administration Dextrose/Water 50 ml 03/11/17 18:11 03/11/17 19:48 Dextrose 50% In Water IVPUSH 03/11/17 18:12 50 ml ONETIME ONE Administration Insulin Aspart 8 unit 03/11/17 18:12 03/11/17 19:41 Novolog SUBCUT 03/11/17 18:13 8 units ONETIME ONE Administration Insulin Aspart 10 unit 03/11/17 21:00 Novolog SUBCUT TID [facility] Insulin Detemir 30 unit 03/11/17 21:00 Levemir SUBCUT BEDTIME [facility] Sodium Polystyrene Sulfonate 15 gm 03/11/17 17:18 03/11/17 17:24 Kayexalate PO 03/11/17 17:19 15 gm ONETIME ONE Administration Sodium Polystyrene Sulfonate 45 gm 03/12/17 11:15 03/12/17 12:48 Kayexalate PO 03/12/17 11:16 45 gm NOW ONE Administration Sodium Polystyrene Sulfonate Confirm 03/12/17 12:47 03/12/17 15:47 Kayexalate Administered 03/12/17 12:48 Not Given Dose 15 gm .ROUTE .STK-MED ONE Departure - Departure Time of Disposition: 17:24 Disposition: Admitted As Inpatient 67 Clinical Impression: Hyperkalemia Diabetes Qualifiers: Diabetes mellitus type: type 2 Diabetes mellitus complication status: with other specified complication Diabetes mellitus shelter insulin use: with assistant terminal manager use Qualified Code(s): E11.69 - Type 2 diabetes mellitus with other specified complication; Z79.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 By signing this record, I attest that the documentation was completed in my physical presence and is an accurate record of the encounter.
--- NOTE | 2017-03-13 11:19 | PCM.DCSUM1 ---
Discharge Summary - Hospital Course Free Text/Narrative:: The patient is a 46-year-old lady with a history of hyperkalemia (type IV RTA), chronic kidney disease, hypertension, diabetes. The patient went for a follow-up visit to his primary care provider when she was noted to have severe hyperkalemia. She was transferred to the emergency room. The patient has a complex medical history and has been seeing multiple providers. It was impossible to get to know what medications she is taking. She was giving conflicting answers to the same questions within few minutes. I suspect there are some medications that she has a prescription and medications at home but was not taking them. I suspect sometimes she was answering that she is taking them based on what bottles she has at home and sometimes based on what she is actually doing. She is even giving conflicting answers if she has a list of medications that she goes by. She says she is setting up her medications in advance. #1 acute severe hyperkalemia History of hyperkalemia due to type IV RTA Possibly EMIL inhibitor, potassium supplement was contributing although difficult to say if the patient was actually taking these medications. received repeat doses of Kayexalate Given insulin and glucose, calcium gluconate, Lasix and fluid Potassium is normalized They have assembled continue medication is for the patient. Discussed importance of keeping a list of what she is doing at home and to be compliant. She will need close follow-up regarding electrolytes and medical compliance. She has an appointment set up for tomorrow at her primary care physician. #2 diabetes It appeared that the patient actually was not taking her Levemir and short- acting combination at home Her blood sugars remained controlled without insulin Follow-up as outpatient periodically #3 hypertension Uncontrolled Started Norvasc Stopped EMIL inhibitor Monitor blood pressure #4 chronic back pain, abdominal pain, chronic diarrhea Appears unchanged Continue Neurontin Follow-up as outpatient - Discharge Data Discharge Date: 03/13/17 Discharge Disposition: Home, Self-Care 01 Condition: Good - Discharge Diagnosis/Problem(s) (1) Hyperkalemia SNOMED Code(s): 05009972 ICD Code: E87.5 - HYPERKALEMIA Status: Acute Current Visit: Yes (2) Hypertension SNOMED Code(s): 05933723 ICD Code: I10 - ESSENTIAL (PRIMARY) HYPERTENSION Status: Acute Current Visit: No Qualifiers: Hypertension type: unspecified Qualified Code(s): I10 - Essential (primary ) hypertension (3) Diabetes mellitus type 2, uncontrolled SNOMED Code(s): 74612561 ICD Code: E11.65 - TYPE 2 DIABETES MELLITUS WITH HYPERGLYCEMIA Status: Chronic Current Visit: No Onset Date: 01/31/15 - Patient Instructions Diet: Renal Diet Activity: As Tolerated - Discharge Plan Prescriptions/Med Rec: amLODIPine [Norvasc] 5 mg PO DAILY #30 tablet Home Medications: Home Meds Aspirin [Sixto Chewable Aspirin] 81 mg PO DAILY 01/29/15 [History] Gabapentin [Neurontin] 600 mg PO DAILY #30 tablet 02/05/15 [Rx] atorvaSTATin [Lipitor] 20 mg PO BEDTIME #30 tablet 02/05/15 [Rx] Calcium Carb & Citrate/Vit D3 [Calcium + D3 ER Tablet] 1 each PO BID 10/11/16 [ History] Multivitamin [Daily Multiple Vitamin] 1 tab PO DAILY 10/11/16 [History] Ferrous Gluconate 1 tab PO DAILY #30 03/13/17 [Rx] Furosemide 20 mg PO BID #60 03/13/17 [Rx] Loperamide [Imodium] 2 mg PO DAILY PRN #30 03/13/17 [Rx] Multivitamins,Therapeutic [Thera] 1 each PO DAILY tablet 03/13/17 [Rx] amLODIPine [Norvasc] 5 mg PO DAILY #30 tablet 03/13/17 [Rx] Patient Handouts: Hyperkalemia, [id number] Referrals: Eddi Hicks [Primary Care Provider] - (already has appt for 03/14) - Discharge Summary/Plan Comment DC Time >30 min.: No - General Info Date of Service: 03/13/17 Subjective Update: Feeling well, had diarrhea after receiving Kayexalate No chest pain, no shortness of breath. No palpitation. No arrhythmia on telemetry - Review of Systems General: Denies: Fever Pulmonary: Denies: Shortness of Breath Cardiovascular: Denies: Chest Pain Gastrointestinal: Reports: Abdominal Pain (Chronic) Neurological: Reports: Confusion (But has very poor insight into her medical problems and medications) - Patient Data Vitals - Most Recent: Last Vital Signs Temp 36.8 C 03/13/17 08:16 Pulse 75 03/13/17 08:16 Resp 20 03/13/17 08:16 BP 142/85 H 03/13/17 08:17 Pulse Ox 100 03/13/17 08:16 Weight - Most Recent: 66.86 kg I&O - Last 24 hours: Intake & Output 03/12/17 03/13/17 03/13/17 22:59 06:59 14:59 Intake Total 1710 973 600 Output Total 400 Balance 1310 973 600 Lab Results - Last 24 hrs: Laboratory Results - last 24 hr 03/12/17 03/12/17 03/12/17 Range/Units 15:20 16:35 20:53 WBC (5.0-10.0) 10^3/uL RBC (4.2-5.4) 10^6/uL Hgb (12.0-16.0) g/dL Hct (37.0-47.0) % MCV (80-100) fL MCH (27.0-34.0) pg MCHC (33.0-35.0) g/dL Plt Count (150-450) 10^3/uL Neut % (Auto) (42.2-75.2) % Lymph % (Auto) (20.5-50.1) % Walker % (Auto) (2-8) % Eos % (Auto) (1.0-3.0) % Baso % (Auto) (0.0-1.0) % Sodium 139 (135-145) mmol/L Potassium 4.9 (3.6-5.0) mmol/L Chloride 112 H (101-111) mmol/L Carbon Dioxide 21.0 (21.0-31.0) mmol/L Anion Gap 10.9 BUN 37 H (7-18) mg/dL Creatinine 1.5 H (0.6-1.3) mg/dL Est Cr Clr Drug Dosing 40.90 mL/min Estimated GFR (MDRD) 38 Glucose 104 (74-105) mg/dL POC Glucose 117 H 92 (70-105) mg/dl Calcium 8.6 (8.4-10.2) mg/dl 03/13/17 03/13/17 03/13/17 Range/Units 06:11 06:11 07:50 WBC 7.3 (5.0-10.0) 10^3/uL RBC 3.54 L (4.2-5.4) 10^6/uL Hgb 9.5 L (12.0-16.0) g/dL Hct 30.4 L (37.0-47.0) % MCV 85.9 (80-100) fL MCH 26.8 L (27.0-34.0) pg MCHC 31.3 L (33.0-35.0) g/dL Plt Count 192 (150-450) 10^3/uL Neut % (Auto) 58.2 (42.2-75.2) % Lymph % (Auto) 31.2 (20.5-50.1) % Walker % (Auto) 6.5 (2-8) % Eos % (Auto) 3.7 H (1.0-3.0) % Baso % (Auto) 0.4 (0.0-1.0) % Sodium 139 (135-145) mmol/L Potassium 4.7 (3.6-5.0) mmol/L Chloride 114 H (101-111) mmol/L Carbon Dioxide 21.0 (21.0-31.0) mmol/L Anion Gap 8.7 BUN 37 H (7-18) mg/dL Creatinine 1.4 H (0.6-1.3) mg/dL Est Cr Clr Drug Dosing 43.82 mL/min Estimated GFR (MDRD) 41 Glucose 93 (74-105) mg/dL POC Glucose 93 (70-105) mg/dl Calcium 7.8 L (8.4-10.2) mg/dl Med Orders - Current: Current Medications Amlodipine Besylate (Norvasc) 5 mg PO DAILY [facility] Last Admin: 03/13/17 08:17 Dose: 5 mg Aspirin (Aspirin) 81 mg PO DAILY [facility] Last Admin: 03/13/17 08:16 Dose: 81 mg Atorvastatin Calcium (Lipitor) 20 mg PO BEDTIME [facility] Last Admin: 03/12/17 21:03 Dose: 20 mg Furosemide (Lasix) 40 mg PO BID [facility] Last Admin: 03/13/17 08:16 Dose: 40 mg Gabapentin (Neurontin) 600 mg PO DAILY [facility] Last Admin: 03/13/17 08:16 Dose: 600 mg Heparin Sodium (Porcine) (Heparin Sodium) 5,000 units SUBCUT Q8HR [facility] Last Admin: 03/13/17 05:48 Dose: 5,000 units Sodium Chloride (Normal Saline) 1,000 mls @ 100 mls/hr IV ASDIRECTED NARAYAN Last Admin: 03/13/17 03:03 Dose: 100 mls/hr Insulin Aspart (Novolog) 0 unit SUBCUT TIDAC NARAYAN PRN Reason: Protocol Last Admin: 03/13/17 08:07 Dose: Not Given Multivitamins (Thera) 1 each PO DAILY [facility] Last Admin: 03/13/17 08:16 Dose: 1 each Oxycodone HCl (Oxycodone) 5 mg PO Q4H PRN PRN Reason: Pain (moderate 4-6) Last Admin: 03/12/17 02:58 Dose: 5 mg Oxycodone HCl (Oxycodone) 5 mg PO Q6H PRN PRN Reason: Pain Sodium Chloride (Saline Flush) 10 ml FLUSH ASDIRECTED PRN PRN Reason: Keep Vein Open Last Admin: 03/11/17 16:40 Dose: 10 ml Zolpidem Tartrate (Ambien) 5 mg PO BEDTIME PRN PRN Reason: Sleep Last Admin: 03/12/17 21:03 Dose: 5 mg Discontinued Medications Calcium Gluconate (Calcium Gluconate) 2 gm IVPUSH ONETIME ONE Stop: 03/11/17 18:12 Last Admin: 03/11/17 19:47 Dose: 2 gm Dextrose/Water (Dextrose 50% In Water) 50 ml IVPUSH ONETIME ONE Stop: 03/11/17 18:12 Last Admin: 03/11/17 19:48 Dose: 50 ml Insulin Aspart (Novolog) 8 unit SUBCUT ONETIME ONE Stop: 03/11/17 18:13 Last Admin: 03/11/17 19:41 Dose: 8 units Insulin Aspart (Novolog) 10 unit SUBCUT TID [facility] Insulin Detemir (Levemir) 30 unit SUBCUT BEDTIME [facility] Sodium Polystyrene Sulfonate (Kayexalate) 15 gm PO ONETIME ONE Stop: 03/11/17 17:19 Last Admin: 03/11/17 17:24 Dose: 15 gm Sodium Polystyrene Sulfonate (Kayexalate) 45 gm PO NOW ONE Stop: 03/12/17 11:16 Last Admin: 03/12/17 12:48 Dose: 45 gm Sodium Polystyrene Sulfonate (Kayexalate) Confirm Administered Dose 15 gm .ROUTE .STK-MED ONE Stop: 03/12/17 12:48 Last Admin: 03/12/17 15:47 Dose: Not Given - Exam General: Reports: Alert, Oriented Neck: Reports: Supple Lungs: Reports: Clear to Auscultation, Normal Respiratory Effort GI/Abdominal Exam: Normal Bowel Sounds, Soft, Non-Tender Extremities: No Pedal Edema *Q Meaningful Use (DIS) - VTE *Q VTE Criteria *Q: - Stroke *Q Stroke Criteria *Q: - AMI *Q AMI Criteria *Q:
[2017-03-13 11:37] VITALS: BP 151/86
--- NOTE | 2017-03-15 14:52 | EKG ---
03/11/2017- SARA NOGUERA - FINDINGS: EKG, per my reading, shows sinus rhythm. [facility] /[id number]
== END 2017-03-13 13:38 | disposition home or self-care (01) ==
LOC: DL.ED 16:25 → DL.MS 17:33 → UNDOADMOB 17:33 → DL.MS 17:45
PROVIDERS: ADMIT Internal Medicine; ATTEND Internal Medicine
DX: E87.5 Hyperkalemia (principal); I12.9 Hypertensive chronic kidney disease with stage 1 through stage 4 chronic kidney disease, or unspecified chronic kidney disease; E11.22 Type 2 diabetes mellitus with diabetic chronic kidney disease; N18.9 Chronic kidney disease, unspecified; K52.9 Noninfective gastroenteritis and colitis, unspecified; G89.29 Other chronic pain; M54.9 Dorsalgia, unspecified; R10.9 Unspecified abdominal pain; E78.00 Pure hypercholesterolemia, unspecified; K21.9 Gastro-esophageal reflux disease without esophagitis; E11.21 Type 2 diabetes mellitus with diabetic nephropathy; E11.40 Type 2 diabetes mellitus with diabetic neuropathy, unspecified; I51.9 Heart disease, unspecified; M19.90 Unspecified osteoarthritis, unspecified site; M47.9 Spondylosis, unspecified; M48.00 Spinal stenosis, site unspecified; G43.909 Migraine, unspecified, not intractable, without status migrainosus; Z87.828 Personal history of other (healed) physical injury and trauma; Z87.891 Personal history of nicotine dependence; Z79.82 Long term (current) use of aspirin; Z79.4 Long term (current) use of insulin; Z79.899 Other long term (current) drug therapy; Z98.890 Other specified postprocedural states; Z88.8 Allergy status to other drugs, medicaments and biological substances; Z82.49 Family history of ischemic heart disease and other diseases of the circulatory system; Z89.429 Acquired absence of other toe(s), unspecified side
CPT/HCPCS: 36415; 71045; 80048; 80053; 80305; 81001; 81025; 82962; 83735; 83880; 84484; 85025; 93005; 96361; 96372; 96374; 96375; 99285; A9270; G0378; G0480; J0610; J1644; J1815; J7030; J7050; J7060

== ENCOUNTER 2017-06-29 01:46 | Inpatient (IN) | payer MEDICAID, OTHER ==
[2017-06-29] MEDS ORDERED: Furosemide 40 MG/4 ML VIAL IVPUSH ONE (01:56)
[2017-06-29 02:27] LABS: CHLORIDE,CL 111 mmol/L (101-111); SODIUM,NA 137 mmol/L (135-145)
--- NOTE | 2017-06-29 03:05 | EDM.PDOC ---
ED HPI GENERAL MEDICAL PROBLEM - General Chief Complaint: Respiratory Problem Stated Complaint: IN BY AMBULANCE-SOB Time Seen by Provider: 06/29/17 01:50 Source of Information: Reports: Patient, EMS History Limitations: Reports: No Limitations - History of Present Illness INITIAL COMMENTS - FREE TEXT/NARRATIVE: ED via [facility] with c/o SOB since Tuesday, worse tonight with lying down. EMS noted initial sats low 90's, decreased to 88 with exertion. Notes cough also, productive at times. Hx CHF and COPD. Duration: Day(s): Treatments [employer]: Reports: Oxygen Left Chest Pain Score (Numeric/FACES): 5 - Related Data Allergies Allergy/AdvReac Type Severity Reaction Status Date / Time acetaminophen Allergy Vomiting Verified 06/29/17 01:53 Home Meds: Home Meds Aspirin [Sixto Chewable Aspirin] 81 mg PO DAILY 01/29/15 [History] Gabapentin [Neurontin] 600 mg PO DAILY #30 tablet 02/05/15 [Rx] Ascorbic Acid 250 mg PO BID 06/13/17 [History] Calcium Citrate/Vitamin D3 [Calcium Citrate - Vit D Caplet] 1 each PO BID [History] Ferrous Gluconate 1 tab PO BIDMEALS 06/13/17 [History] Metoprolol Tartrate 50 mg PO DAILY 06/13/17 [History] NIFEdipine [Nifedipine ER] 60 mg PO DAILY 06/13/17 [History] atorvaSTATin [Lipitor] 40 mg PO BEDTIME 06/13/17 [History] Furosemide 40 mg PO DAILY 06/29/17 [History] Past Medical History HEENT History: Reports: Impaired Vision Cardiovascular History: Reports: High Cholesterol, Hypertension, Syncope, Other (See Below) Other Cardiovascular History: "have heart disease" Respiratory History: Reports: Bronchitis, Recurrent, COPD, Pneumonia, Recurrent Gastrointestinal History: Reports: Chronic Diarrhea, GERD Other Gastrointestinal History: Hernia repair on right side of abdomen Genitourinary History: Reports: Diabetic Nephropathy Musculoskeletal History: Reports: Arthritis, Back Pain, Chronic, Other (See Below) Other Musculoskeletal History: spinal stenosis and arthritis in spine Neurological History: Reports: Concussion, Headaches, Chronic, Migraines, Neuropathy, Diabetic Psychiatric History: Reports: Anxiety, Depression, Panic Attack Endocrine/Metabolic History: Reports: Diabetes, Type II Dermatologic History: Reports: Other (See Below) Other Dermatologic History: past history of betancur. patient states 90% of body - Infectious Disease History Infectious Disease History: Reports: Chicken Pox - Past Surgical History Head Surgeries/Procedures: Reports: None Cardiovascular Surgical History: Reports: None GI Surgical History: Reports: Hernia Repair/Other Musculoskeletal Surgical History: Reports: Amputation Dermatological Surgical History: Reports: Skin Graft Social & Family History - Family History Family Medical History: Noncontributory Cardiac: Reports: High Cholesterol, Hypertension, Other (See Below) Other Cardiac Family History: "bad heart" GI: Reports: Cirrhosis Other GI Family History: "sister has cirrhosis" Musculoskeletal: Reports: Arthritis, Back pain, Chronic, RA Other Musculoskeletal Family History: mom has Ra,dad has chronic back pain and arthritis Neurological: Reports: Alzheimers Disease, Dementia, Other (See Below) Other Neurological Family History: dad has dementia and alzheimers disease and brother has permanent brain damage Psychiatric: Reports: Depression Endocrine/Metabolic: Reports: Diabetes, Type I Other Endocrine/Metabolic Family History: Mom - Tobacco Use Smoking Status *Q: Never Smoker Second Hand Smoke Exposure: No - Caffeine Use Caffeine Use: Reports: Coffee, Soda, Tea - Recreational Drug Use Recreational Drug Use: No ED ROS GENERAL - Review of Systems Review Of Systems: See Below Constitutional: Reports: Fatigue. Denies: Fever, Chills HEENT: Reports: No Symptoms Respiratory: Reports: Shortness of Breath, Cough Cardiovascular: Reports: Chest Pain (brief tonight , absent on arrival), Dyspnea on Exertion, Edema, Orthopnea GI/Abdominal: Reports: Other (admits stools darker than usual, no yudelka blood noted) : Reports: Other (voiding less than usual). Denies: Dysuria Musculoskeletal: Reports: No Symptoms Neurological: Reports: No Symptoms ED EXAM, GENERAL - Physical Exam Exam: See Below Exam Limited By: No Limitations General Appearance: Alert Eye Exam: Bilateral Eye: EOMI Ears: Normal External Exam, Hearing Grossly Normal Nose: Normal Inspection Throat/Mouth: Normal Inspection. No: Perioral Cyanosis Head: Atraumatic, Normocephalic Neck: Normal Inspection, Full Range of Motion Respiratory/Chest: Decreased Breath Sounds, Crackles (bilateral bases). No: Wheezing Cardiovascular: Normal Peripheral Pulses, Regular Rate, Rhythm. No: No Edema GI/Abdominal: Normal Bowel Sounds Back Exam: Full Range of Motion Extremities: Normal Range of Motion, Pedal Edema Neurological: Alert, Oriented, Normal Cognition Psychiatric: Normal Affect, Normal Mood Skin Exam: Warm, Dry, Other (abrasion mid back ) Course - Vital Signs Last Recorded V/S: Last Vital Signs Temp 97.4 F 06/29/17 03:29 Pulse 77 06/29/17 03:29 Resp 20 06/29/17 03:29 BP 179/84 H 06/29/17 03:29 Pulse Ox 90 L 06/29/17 03:29 - Orders/Labs/Meds Orders: Active Orders 24 hr Category Date Time Status Patient Status [ADT] Routine ADT 06/29/17 04:15 Active Blood Glucose Check, Bedside [RC] TIDMEALS Care 06/29/17 04:09 Active Oxygen Therapy [RC] PRN Care 06/29/17 04:15 Active Peripheral IV Care [RC] , Care 06/29/17 04:16 Active Telemetry Monitoring [Cardiac Monitoring] [RC] , Care 06/29/17 04:09 Active Up With Assistance [RC] ASDIRECTED Care 06/29/17 04:13 Active VTE/DVT Education [RC] PER UNIT ROUTINE Care 06/29/17 04:15 Active Vital Signs [RC] Q4H Care 06/29/17 04:15 Active Consistent Carbohydrate Diet [DIET] Diet 06/29/17 Breakfast Active VL Duplex Renal Comp [US] Routine Exams 06/29/17 04:12 Ordered BASIC METABOLIC PANEL,BMP [CHEM] AM Lab 06/30/17 05:15 Ordered BASIC METABOLIC PANEL,BMP [CHEM] Routine Lab 06/29/17 10:00 Ordered CBC WITH AUTO DIFF [HEME] AM Lab 06/30/17 05:15 Ordered CBC WITH AUTO DIFF [HEME] Routine Lab 06/29/17 10:00 Ordered CULTURE BLOOD [BC] Stat Lab 06/29/17 04:10 Ordered CULTURE BLOOD [BC] Stat Lab 06/29/17 04:10 Ordered CULTURE URINE [RM] Routine Lab 06/29/17 03:03 Received TROPONIN I [CHEM] Routine Lab 06/29/17 10:00 Ordered UA W/MICROSCOPIC [URIN] Stat Lab 06/29/17 03:03 Ordered Aspirin Med 06/29/17 09:00 Active 81 mg PO DAILY Calcium Carbonate/Vitamin D3 [Calcium Carbonate/Vitamin Med 06/29/17 09:00 Active D 1250 MG-200 Unit] 1 tab PO BID Ferrous Gluconate [Ferrous Gluconate] Med 06/29/17 08:00 Active 1 tab PO BIDMEALS Furosemide [Lasix] Med 06/29/17 10:00 Active 40 mg IVPUSH Q8H Gabapentin [Neurontin] Med 06/29/17 09:00 Active 100 mg PO DAILY Heparin Sodium Med 06/29/17 06:00 Active 5,000 units SUBCUT Q8HR Insulin Aspart [NovoLOG] Med 06/29/17 08:00 Active See Protocol SUBCUT TIDAC Levofloxacin/Dextrose 5%-Water [Levaquin in D5W 750 MG/ Med 06/29/17 04:15 Active 150 ML] 750 mg Premix Bag 1 bag IV Q48H Sodium Chloride 0.9% [Saline Flush] Med 06/29/17 04:13 Active 10 ml FLUSH ASDIRECTED PRN Zolpidem [Ambien] Med 06/29/17 04:13 Active 5 mg PO BEDTIME PRN atorvaSTATin [Lipitor] Med 06/29/17 21:00 Active 40 mg PO BEDTIME hydrALAZINE [Apresoline] Med 06/29/17 04:07 Active 25 mg PO Q4H PRN oxyCODONE Med 06/29/17 04:13 Active 5 mg PO Q4H PRN Antiembolic Hose [OM.PC] Per Unit Routine Oth 06/29/17 04:16 Ordered Blood Culture x2 Reflex Set [OM.PC] Stat Oth 06/29/17 04:10 Ordered Peripheral IV Insertion Adult [OM.PC] Routine Oth 06/29/17 04:13 Ordered Saline Lock Insert [OM.PC] Routine Oth 06/29/17 04:13 Ordered Resuscitation Status Routine Resus Stat 06/29/17 04:13 Ordered Medication Orders Albuterol (Proventil Neb Soln) 2.5 mg NEB Q4HRRT PRN PRN Reason: sob Albuterol/Ipratropium (Duoneb 3.0-0.5 Mg/3 Ml) 3 ml NEB TID NARAYAN Aspirin (Aspirin) 81 mg PO DAILY NARAYAN Atorvastatin Calcium (Lipitor) 40 mg PO BEDTIME NARAYAN Calcium Carbonate (Calcium Carbonate/Vitamin D 1250 Mg-200 Unit) 1 tab PO BID NARAYAN Furosemide (Lasix) 40 mg IVPUSH Q8H NARAYAN Gabapentin (Neurontin) 100 mg PO DAILY NARAYAN Heparin Sodium (Porcine) (Heparin Sodium) 5,000 units SUBCUT Q8HR [facility] Hydralazine HCl (Apresoline) 25 mg PO Q4H PRN PRN Reason: sbp>150 Levofloxacin/Dextrose 750 mg/ (Premix) 150 mls @ 100 mls/hr IV Q48H [facility] Last Admin: 06/29/17 05:55 Dose: 100 mls/hr Insulin Aspart (Novolog) 0 unit SUBCUT TIDAC [facility]; Protocol Non-Formulary Medication (Ferrous Gluconate [Ferrous Gluconate]) 1 tab PO BIDMEALS [facility] Oxycodone HCl (Oxycodone) 5 mg PO Q4H PRN PRN Reason: Pain (moderate 4-6) Sodium Chloride (Saline Flush) 10 ml FLUSH ASDIRECTED PRN PRN Reason: Keep Vein Open Zolpidem Tartrate (Ambien) 5 mg PO BEDTIME PRN PRN Reason: Sleep Labs: Laboratory Tests 06/29/17 06/29/17 06/29/17 Range/Units 02:02 02:02 02:02 WBC 8.5 (5.0-10.0) 10^3/uL RBC 2.79 L (4.2-5.4) 10^6/uL Hgb 7.7 L D (12.0-16.0) g/dL Hct 25.0 L (37.0-47.0) % MCV 89.6 D (80-100) fL MCH 27.6 (27.0-34.0) pg MCHC 30.8 L (33.0-35.0) g/dL Plt Count 220 (150-450) 10^3/uL Neut % (Auto) 59.1 (42.2-75.2) % Lymph % (Auto) 25.4 (20.5-50.1) % Leake % (Auto) 10.1 H (2-8) % Eos % (Auto) 4.5 H (1.0-3.0) % Baso % (Auto) 0.9 (0.0-1.0) % D-Dimer, Quantitative 1070 H (0-400) ng/mL Sodium 137 (135-145) mmol/L Potassium 5.3 H (3.6-5.0) mmol/L Chloride 111 (101-111) mmol/L Carbon Dioxide 20.0 L (21.0-31.0) mmol/L Anion Gap 11.3 BUN 53 H (7-18) mg/dL Creatinine 2.4 H (0.6-1.3) mg/dL Est Cr Clr Drug Dosing 25.56 mL/min Estimated GFR (MDRD) 22 BUN/Creatinine Ratio 22.08 Glucose 93 (74-105) mg/dL Calcium 8.0 L (8.4-10.2) mg/dl Total Bilirubin 0.4 (0.2-1.0) mg/dL AST 39 (10-42) IU/L ALT 34 (10-60) IU/L Alkaline Phosphatase 114 (42-121) IU/L Troponin I < 0.02 (0.00-0.02) ng/ml B-Natriuretic Peptide 1040 H (0-100) pg/ml Total Protein 6.9 (6.7-8.2) g/dl Albumin 2.9 L (3.2-5.5) g/dl Globulin 4.0 Albumin/Globulin Ratio 0.73 Amylase 57 (28-100) U/L Urine Color (YELLOW) Urine Appearance (CLEAR) Urine pH (5.0-9.0) Ur Specific [place] (1.005-1.030) Urine Protein (NEGATIVE) Urine Glucose (UA) (NEGATIVE) Urine Ketones (NEGATIVE) Urine Occult Blood (NEGATIVE) Urine Nitrite (NEGATIVE) Urine Bilirubin (NEGATIVE) Urine Urobilinogen (0.2-1.0) mg/dL Ur Leukocyte Esterase (NEGATIVE) Urine RBC /HPF Urine WBC (0-5/HPF) /HPF Ur Epithelial Cells /HPF Urine Bacteria (0-FEW/HPF) /HPF Ketones Negative Blood Type Gel Antibody Screen 06/29/17 06/29/17 Range/Units 02:02 03:03 WBC (5.0-10.0) 10^3/uL RBC (4.2-5.4) 10^6/uL Hgb (12.0-16.0) g/dL Hct (37.0-47.0) % MCV (80-100) fL MCH (27.0-34.0) pg MCHC (33.0-35.0) g/dL Plt Count (150-450) 10^3/uL Neut % (Auto) (42.2-75.2) % Lymph % (Auto) (20.5-50.1) % Leake % (Auto) (2-8) % Eos % (Auto) (1.0-3.0) % Baso % (Auto) (0.0-1.0) % D-Dimer, Quantitative (0-400) ng/mL Sodium (135-145) mmol/L Potassium (3.6-5.0) mmol/L Chloride (101-111) mmol/L Carbon Dioxide (21.0-31.0) mmol/L Anion Gap BUN (7-18) mg/dL Creatinine (0.6-1.3) mg/dL Est Cr Clr Drug Dosing mL/min Estimated GFR (MDRD) BUN/Creatinine Ratio Glucose (74-105) mg/dL Calcium (8.4-10.2) mg/dl Total Bilirubin (0.2-1.0) mg/dL AST (10-42) IU/L ALT (10-60) IU/L Alkaline Phosphatase (42-121) IU/L Troponin I (0.00-0.02) ng/ml B-Natriuretic Peptide (0-100) pg/ml Total Protein (6.7-8.2) g/dl Albumin (3.2-5.5) g/dl Globulin Albumin/Globulin Ratio Amylase (28-100) U/L Urine Color Light yellow (YELLOW) Urine Appearance Slightly cloudy (CLEAR) Urine pH 5.5 (5.0-9.0) Ur Specific [place] 1.020 (1.005-1.030) Urine Protein >=300 H (NEGATIVE) Urine Glucose (UA) Negative (NEGATIVE) Urine Ketones Negative (NEGATIVE) Urine Occult Blood Moderate H (NEGATIVE) Urine Nitrite Negative (NEGATIVE) Urine Bilirubin Negative (NEGATIVE) Urine Urobilinogen 0.2 (0.2-1.0) mg/dL Ur Leukocyte Esterase Trace H (NEGATIVE) Urine RBC 5-10 H /HPF Urine WBC 30-40 H (0-5/HPF) /HPF Ur Epithelial Cells Few /HPF Urine Bacteria Many H (0-FEW/HPF) /HPF Ketones Blood Type O POSITIVE Gel Antibody Screen Negative Meds: Medications Generic Name Dose Route Start Last Admin Trade Name Freq PRN Reason Stop Dose Admin Albuterol 2.5 mg 06/29/17 04:25 Proventil Neb Soln NEB Q4HRRT PRN sob Albuterol/Ipratropium 3 ml 06/29/17 09:00 Duoneb 3.0-0.5 Mg/3 Ml NEB TID NARAYAN Aspirin 81 mg 06/29/17 09:00 Aspirin PO DAILY [facility] Atorvastatin Calcium 40 mg 06/29/17 21:00 Lipitor PO BEDTIME [facility] Calcium Carbonate 1 tab 06/29/17 09:00 Calcium Carbonate/Vitamin D 1250 Mg-200 Unit PO BID [facility] Furosemide 40 mg 06/29/17 10:00 Lasix IVPUSH Q8H NARAYAN Gabapentin 100 mg 06/29/17 09:00 Neurontin PO DAILY [facility] Heparin Sodium (Porcine) 5,000 units 06/29/17 06:00 Heparin Sodium SUBCUT Q8HR [facility] Hydralazine HCl 25 mg 06/29/17 04:07 Apresoline PO Q4H PRN sbp>150 Levofloxacin/Dextrose 750 mg/ 150 mls @ 100 mls/hr 06/29/17 04:15 06/29/17 05 :55 Premix IV 100 mls/hr Q48H [facility] Administration Insulin Aspart 0 unit 06/29/17 08:00 Novolog SUBCUT TIDAC [facility] Protocol Non-Formulary Medication 1 tab 06/29/17 08:00 Ferrous Gluconate [Ferrous Gluconate] PO BIDMEALS [facility] Oxycodone HCl 5 mg 06/29/17 04:13 Oxycodone PO Q4H PRN Pain (moderate 4-6) Sodium Chloride 10 ml 06/29/17 04:13 Saline Flush FLUSH ASDIRECTED PRN Keep Vein Open Zolpidem Tartrate 5 mg 06/29/17 04:13 Ambien PO BEDTIME PRN Sleep Discontinued Medications Generic Name Dose Route Start Last Admin Trade Name Freq PRN Reason Stop Dose Admin Furosemide 40 mg 06/29/17 01:56 06/29/17 02:05 Lasix IVPUSH 06/29/17 01:57 40 mg NOW ONE Administration - Radiology Interpretation Free Text/Narrative:: CXR; - Re-Assessments/Exams Free Text/Narrative Re-Assessment/Exam: 06/29/17 03:20 Dr Rosales, accepting of patient for further eval and management of Dyspnea, anemia Departure - Departure Time of Disposition: 03:15 Disposition: Admitted As Inpatient 67 Condition: Good Clinical Impression: Hyperkalemia, Orthopnea Anemia Qualifiers: Anemia type: unspecified type Qualified Code(s): D64.9 - Anemia, unspecified CKD (chronic kidney disease) Qualifiers: Chronic kidney disease stage: unspecified stage Qualified Code(s): N18.9 - Chronic kidney disease, unspecified Acute CHF Qualifiers: Heart failure type: unspecified Qualified Code(s): I50.9 - Heart failure, unspecified - Discharge Information - My Orders Last 24 Hours: My Active Orders 06/29/17 03:03 UA W/MICROSCOPIC [URIN] Stat - Assessment/Plan Last 24 Hours: My Active Orders 06/29/17 03:03 UA W/MICROSCOPIC [URIN] Stat
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
[2017-06-29] MEDS ORDERED: Albuterol 0.083% 2.5 MG/3 ML Neb Soln NEB PRN (04:25)
[2017-06-29] MEDS: Levofloxacin/Dextrose 5%-Water 750 MG in Premix Bag 1 BAG IV SCH (05:55)
[2017-06-29] MEDS: Heparin Sodium 5,000 Units/ML Vial SUBCUT SCH ×3 (06:16→21:14)
[2017-06-29] MEDS: Albuterol/Ipratropium 3.0-0.5 MG/3 ML Neb Soln NEB SCH ×3 (08:00→21:14)
[2017-06-29] MEDS: Insulin Aspart 100 Units/ML 3 ML Pen SUBCUT SCH ×3 (08:24→17:16)
[2017-06-29] MEDS: Calcium Carbonate/Vitamin D3 1250 MG-200 Unit Tab PO SCH ×2 (08:25→21:12)
[2017-06-29] MEDS: Gabapentin 100 MG Cap PO SCH (08:25)
[2017-06-29] MEDS: Aspirin 81 MG Tab.Chew PO SCH (08:25)
[2017-06-29] MEDS: hydrALAZINE 25 MG Tab PO PRN ×3 (08:25→21:12)
[2017-06-29] MEDS: FERROUS GLUCONATE PO SCH ×2 (08:26→17:18)
[2017-06-29] MEDS: Furosemide 40 MG/4 ML VIAL IVPUSH SCH ×2 (10:36→17:36)
--- NOTE | 2017-06-29 14:56 | US ---
CLINICAL HISTORY: 46-year-old diabetic female with nausea and bilateral pain ("acute kidney injury"). INTERPRETATION: Normal reniform size, axis and configuration bilaterally with good vascular flow in t he teena of both kidneys. No sign of renal cortical mass lesion, nephrolithiasis or obstructive uropathy (pyelocaliectasis) eit her kidney. Smooth renal cortical margin and symmetric cortical "mantle" bilaterally. Normal ureteral "jets" demonstrated bilaterally in the bladder. NOTE: Bilateral dependent pleural effusions. Right kidney measures 10.4 cm L x 6.3 cm W x 5.1 cm AP diameter. Left kidney measures 10.7 cm L x 3.9 cm W x 5.3 cm AP diameter. CONCLUSION: Negative renal sonogram. Bilateral pleural effusions.
[2017-06-29] MEDS: atorvaSTATin 20 MG Tab PO SCH (21:12)
[2017-06-30] MEDS: Sodium Chloride 0.9% 10 ML Syringe FLUSH PRN ×2 (02:51→16:38)
[2017-06-30] MEDS: Furosemide 40 MG/4 ML VIAL IVPUSH SCH ×2 (02:51→10:19)
[2017-06-30] MEDS: hydrALAZINE 25 MG Tab PO PRN ×4 (03:00→18:28)
[2017-06-30] MEDS: Heparin Sodium 5,000 Units/ML Vial SUBCUT SCH ×3 (05:53→21:49)
--- NOTE | 2017-06-30 07:26 | EKG ---
06/29/2017- SARA NOGUERA - FINDINGS: EKG, per my reading, shows sinus rhythm at the rate of 69. MODL /[id number]
[2017-06-30] MEDS: Albuterol/Ipratropium 3.0-0.5 MG/3 ML Neb Soln NEB SCH ×3 (09:31→21:49)
[2017-06-30] MEDS: Aspirin 81 MG Tab.Chew PO SCH (10:07)
[2017-06-30] MEDS: Gabapentin 100 MG Cap PO SCH (10:08)
[2017-06-30] MEDS: Calcium Carbonate/Vitamin D3 1250 MG-200 Unit Tab PO SCH ×2 (10:08→21:48)
[2017-06-30] MEDS: FERROUS GLUCONATE PO SCH ×2 (10:09→17:49)
[2017-06-30] MEDS: Insulin Aspart 100 Units/ML 3 ML Pen SUBCUT SCH ×3 (10:09→17:07)
[2017-06-30] MEDS: Metoprolol Succinate 50 MG Tab.ER PO SCH (12:19)
--- NOTE | 2017-06-30 12:53 | PN ---
DATE: 06/30/2017 SUBJECTIVE: Ms. Nery Pagan is a 46-year-old female with medical history significant for hypertension, hyperlipidemia, history of chronic congestive heart failure, chronic obstructive pulmonary disease, anemia, was admitted to the hospital with complaints of increasing shortness of breath and is noted to be in acute on chronic congestive heart failure, acute renal failure, and anemia. For the last 24 hours, the patient was started on Lasix after which her shortness of breath seems to be improved. She denies any chest pain. No abdominal pain. No nausea. No vomiting. No diarrhea. The patient denied any history of hematemesis, hematochezia, or melenic stools. REVIEW OF SYSTEMS: Cardiovascular, respiratory, gastrointestinal, neurology, constitutional were all evaluated. PHYSICAL EXAMINATION: Vital Signs: Temperature of 98.5, pulse of 81, blood pressure 164/84, saturating at 99%, respiratory rate of 20. General Appearance: The patient is well oriented to time, place, and person. Follows commands spontaneously. Cardiovascular System: S1, S2 heard with normal intensity. No gallops. Respiratory System: Clear to auscultation bilaterally. No wheeze, but crepitations at the bases. Abdomen: Soft. Bowel sounds positive. Nontender. No rigidity. Extremities: Mild edema in bilateral lower extremities. Neurology: No gross focal neurological deficit. MEDICATIONS: 1. Albuterol 2.5 mg nebulizer every 4 hours as needed. 2. DuoNeb 3 times a day. 3. Aspirin 81 mg daily. 4. Lipitor 40 mg at bedtime. 5. Lasix 40 mg IV q.12 hourly. 6. Neurontin 100 mg daily. 7. Heparin 5000 subcutaneous q.8 hourly. 8. NovoLog supplemental scale. 9. Levofloxacin every 48 hours. 10.Toprol-XL 50 mg daily. 11.Oxycodone 5 mg every 4 hours as needed. LABORATORY DATA: Reviewed. WBC 6.8, hemoglobin 7.8, hematocrit 24.9, platelet count 242. Sodium 137, potassium 5, chloride 108, bicarb 21, BUN 54, creatinine 2.7. BNP is 1040. MICROBIOLOGY: Urine culture, positive for 100,000 colony-forming units gram- negative andreia. ASSESSMENT: 1. Acute on chronic congestive heart failure. 2. Acute renal failure. 3. Urinary tract infection. 4. Chronic obstructive pulmonary disease. 5. Type 2 diabetes mellitus. 6. Anemia. PLAN: 1. Acute on chronic congestive heart failure. The patient is noted to have elevated B-natriuretic peptide. Chest x-ray suggestive of pulmonary venous congestion. We will continue with the Lasix at 40 mg IV q.12 hourly. Closely monitor input, output, and daily weights. She has a net negative balance after getting admitted to the hospital. The patient claims that she had an echocardiogram, we will try to obtain the medical records from primary care physician to see if she has diastolic or systolic dysfunction. 2. Anemia. The patient's hemoglobin is down to 7. She denied any hematemesis, hematochezia, or melenic stools. Stool for occult blood is also negative. We will get iron, B12, folate studies, and also peripheral smear. The patient is agreeable for blood transfusion. The patient could have high-output cardiac failure also secondary to anemia, we will transfuse at least 2 more units of blood. Informed consent is obtained after explaining the risks, benefits, and complications of blood transfusion. 3. Hypertension, uncontrolled. The patient is on nifedipine and metoprolol. We will start the metoprolol-XL. Continue with the Lasix. 4. Type 2 diabetes mellitus, diet controlled. Continue with supplemental scale insulin as needed. 5. Urinary tract infection. The patient is currently on Levaquin, continue the same. We will follow with the urine culture report for identification and susceptibility of the culture. 6. Acute renal failure. This is mainly from congestion. She is noted to have prerenal picture, continue with her diuretics, be cautious regarding diuresis. We will recheck a basic metabolic panel in a.m. Avoid nephrotoxic agents. Dose adjust medications for renal function. 7. DVT prophylaxis. Continue with heparin for DVT prophylaxis. [facility] /[id number]
[2017-06-30] MEDS ORDERED: Furosemide 40 MG/4 ML VIAL IVPUSH SCH (16:00)
[2017-06-30] MEDS: atorvaSTATin 20 MG Tab PO SCH (21:48)
[2017-07-01] MEDS: Sodium Chloride 0.9% 10 ML Syringe FLUSH PRN ×2 (05:29→07:14)
[2017-07-01] MEDS: Levofloxacin/Dextrose 5%-Water 750 MG in Premix Bag 1 BAG IV SCH (05:32)
[2017-07-01] MEDS: Heparin Sodium 5,000 Units/ML Vial SUBCUT SCH ×3 (05:38→21:35)
[2017-07-01] MEDS: hydrALAZINE 25 MG Tab PO PRN ×4 (05:54→21:35)
[2017-07-01] MEDS ORDERED: Furosemide 40 MG/4 ML VIAL IVPUSH SCH (06:00)
--- NOTE | 2017-07-01 09:12 | CR ---
Clinical history: 46-year-old female cough. Interpretation: Large dependent subpulmonic pleural effusions bilaterally this patient with chronic c ardiomegaly. Pulmonary vascularity relatively less congested with decreased cephalization since 29 Jun 2017 exam i. e. Interval improvement. No new alveolar edema or lung mass but... Cannot exclude underlying lower lobe atelectasis or infiltr ate. Clinical?
[2017-07-01] MEDS: Albuterol/Ipratropium 3.0-0.5 MG/3 ML Neb Soln NEB SCH ×3 (09:16→21:27)
[2017-07-01] MEDS: Gabapentin 100 MG Cap PO SCH (09:24)
[2017-07-01] MEDS: Aspirin 81 MG Tab.Chew PO SCH (09:24)
[2017-07-01] MEDS: Metoprolol Succinate 50 MG Tab.ER PO SCH (09:24)
[2017-07-01] MEDS: Calcium Carbonate/Vitamin D3 1250 MG-200 Unit Tab PO SCH ×2 (09:24→21:28)
[2017-07-01] MEDS: Insulin Aspart 100 Units/ML 3 ML Pen SUBCUT SCH ×3 (09:27→17:59)
[2017-07-01] MEDS: FERROUS GLUCONATE PO SCH ×2 (09:27→18:02)
[2017-07-01] MEDS: Iron Polysaccharides Complex 150 MG Cap PO SCH (13:52)
--- NOTE | 2017-07-01 14:04 | PN ---
DATE: 07/01/2017 SUBJECTIVE: Ms. Neyr Pagan is a 46-year-old female with medical history significant for hypertension, hyperlipidemia, chronic congestive heart failure secondary to diastolic dysfunction, chronic obstructive pulmonary disease, admitted with complaints of increasing shortness of breath, noted to be in acute on chronic congestive heart failure, acute renal failure, and anemia. For the last 24 hours, the patient received blood transfusion without any complication. She denies any chest pain. No shortness of breath. No abdominal pain. No nausea. No vomiting. No diarrhea. REVIEW OF SYSTEMS: Cardiovascular, respiratory, gastrointestinal, neurology, constitutional were all evaluated and were negative except for the above-said notes. PHYSICAL EXAMINATION: Vital Signs: Temperature of 99, pulse of 69, blood pressure 182/90, respiratory rate of 16, saturating 95% on room air. General Appearance: The patient is well oriented to time, place, and person. Follows commands spontaneously. Cardiovascular System: S1, S2 heard with normal intensity. No gallops. Respiratory System: Clear to auscultation bilaterally except for crepitations at the bases. No wheeze. Abdomen: Soft. Bowel sounds positive. Nontender. No rigidity. No guarding. No rebound tenderness. Extremities: Mild edema in bilateral lower extremities, improved from yesterday. Neurology: No gross focal neurological deficit. MEDICATIONS: Reviewed. Continue with, 1. Albuterol 2.5 mg nebulizer every 4 hours as needed. 2. DuoNeb 3 mL nebulizer 3 times a day. 3. Aspirin 81 mg daily. 4. Lipitor 40 mg at bedtime. 5. Lasix 40 mg daily. 6. Neurontin 100 mg daily. 7. Heparin 5000 subcu q.8 hourly. 8. NovoLog supplemental scale. 9. Levaquin every 48 hours. 10.Toprol-XL 75 mg daily. 11.Procardia-XL 30 mg at bedtime. 12.Iron 150 mg daily. 13.Ambien 5 mg at bedtime as needed for sleep. LABORATORY DATA: Reviewed. WBC 6.9, hemoglobin 8, hematocrit 25.6, platelet count 260. Sodium 137, potassium 5, chloride 107, bicarb 24, BUN 59, creatinine 2.9, glucose 107, phosphorus 6.8, magnesium 2.2. BNP 1010. Chest x-ray shows improvement in her pulmonary venous congestion. ASSESSMENT: 1. Acute renal failure. 2. Anemia requiring blood transfusion. 3. Acute on chronic congestive heart failure secondary to diastolic dysfunction with ejection fraction of 60%. 4. Hypertension. 5. Hyperlipidemia. 6. Urinary tract infection. 7. Chronic obstructive pulmonary disease. 8. Type 2 diabetes mellitus. PLAN: 1. Acute on chronic congestive heart failure. We reviewed the 2D echocardiogram done recently and it showed good ejection fraction of 60%. The patient noted to have grade 2 diastolic dysfunction with left ventricular hypertrophy. Restarted the Toprol-XL, we will increase the Toprol-XL dose to optimize the blood pressure. Restart the Procardia-XL. Closely follow. The patient is currently on Lasix, she has been on IV Lasix, we will switch her to oral Lasix 40 mg once a day from a.m. We will closely follow. 2. Hypertension, uncontrolled. The patient noted to have elevated blood pressure. Restart her antihypertensive medications. Increase the Toprol- XL to 75 mg daily. Continue Procardia XL. We will further dose adjust the medication to optimize the blood pressure. 3. Acute renal failure, seems to be elevated, could be resulting from IV diuresis. We will change her diuretics to oral. We will maintain euvolemic status. Recheck a basic metabolic panel in a.m. 4. Chronic obstructive pulmonary disease, remains stable. Continue with current inhalation nebulizer treatment. The patient will be encouraged to use incentive spirometer to avoid any atelectasis. 5. Type 2 diabetes mellitus. Check her fingersticks with each meals. Continue with supplemental scale insulin as needed. 6. DVT prophylaxis. Continue with heparin for DVT prophylaxis. 7. Urinary tract infection. She is empirically started on Levaquin, continue the same. 8. Anemia. The patient received blood transfusion. Her B12, folate, and iron studies are within normal limits. Her peripheral smear is also within normal limits. If she continues to have anemia, then she might need hematology consultation for possible bone marrow biopsy. Her stool for occult blood is also negative. She denied any hematemesis, hematochezia, or melenic stools. [facility] /[id number]
[2017-07-01] MEDS: NIFEdipine 30 MG Tab.ER PO SCH (21:28)
[2017-07-01] MEDS: atorvaSTATin 20 MG Tab PO SCH (21:28)
[2017-07-02] MEDS: Zolpidem 5 MG Tab PO PRN ×2 (00:38→21:48)
[2017-07-02] MEDS: Heparin Sodium 5,000 Units/ML Vial SUBCUT SCH ×3 (06:40→21:47)
[2017-07-02] MEDS: Insulin Aspart 100 Units/ML 3 ML Pen SUBCUT SCH ×3 (08:22→17:14)
[2017-07-02] MEDS: Albuterol/Ipratropium 3.0-0.5 MG/3 ML Neb Soln NEB SCH ×3 (09:11→21:42)
[2017-07-02] MEDS: Metoprolol Succinate 25 MG Tab.ER PO SCH (09:48)
[2017-07-02] MEDS: Iron Polysaccharides Complex 150 MG Cap PO SCH (09:48)
[2017-07-02] MEDS: hydrALAZINE 25 MG Tab PO PRN ×3 (09:48→21:41)
[2017-07-02] MEDS: Furosemide 40 MG Tab PO SCH (09:48)
[2017-07-02] MEDS: Calcium Carbonate/Vitamin D3 1250 MG-200 Unit Tab PO SCH ×2 (09:49→21:43)
[2017-07-02] MEDS: Gabapentin 100 MG Cap PO SCH (09:49)
[2017-07-02] MEDS: Aspirin 81 MG Tab.Chew PO SCH (09:49)
[2017-07-02] MEDS: FERROUS GLUCONATE PO SCH ×2 (09:49→17:15)
--- NOTE | 2017-07-02 12:53 | PN ---
DATE: 07/02/2017 SUBJECTIVE: Mrs. Nery Pagan is a 46-year-old female with medical history significant for hypertension, hyperlipidemia, chronic congestive heart failure with diastolic dysfunction. Her recent echocardiogram showed an ejection fraction of 60%, next chronic obstructive pulmonary disease, admitted with increasing shortness of breath and noted to be in nzspt-jt-mhwxtio congestive heart failure, acute renal failure, and anemia. For the last 24 hours, the patient denies any complaints of chest pain. No shortness of breath. No abdominal pain. No nausea. No vomiting. No diarrhea. REVIEW OF SYSTEMS: Cardiovascular, respiratory, gastrointestinal, neurology, and constitutional were all evaluated. PHYSICAL EXAMINATION: Vital Signs: Temperature of 98.4, pulse of 73, blood pressure of 158/82, saturating at 99%, and respiratory rate of 20. General Appearance: The patient is well oriented to time, place, and person. Follows commands spontaneously. Cardiovascular System: S1 and S2 heard with normal intensity. No gallops. Respiratory System: Clear to auscultation bilaterally. No wheeze. No crepitations. Abdomen: Soft. Bowel sounds positive. Nontender. No rigidity. Extremities: No edema in the bilateral lower extremities. Neurology: No gross focal neurological deficit. MEDICATIONS: Reviewed. Continue with: 1. DuoNeb 3 times a day. 2. Aspirin 81 mg daily. 3. Lipitor 40 mg at bedtime. 4. Lasix 40 mg daily. 5. Neurontin 100 mg daily. 6. Heparin 5000 subcutaneous q.8 hourly. 7. Hydralazine 25 mg every 4 hours as needed. 8. NovoLog supplemental scale. 9. Toprol-XL 75 mg daily. 10.Procardia XL 30 mg at bedtime. 11.Ambien 5 mg at bedtime as needed for sleep. LABORATORY DATA: Labs reviewed. 1. Sodium 138, potassium 4.8, chloride 107, bicarb 24, BUN 60, creatinine 3.1, glucose 107. 2. B-natriuretic peptide 703. ASSESSMENT: 1. Ymcxc-yo-nbvfvbg congestive heart failure, secondary to diastolic dysfunction with ejection fraction of 60%, improving. 2. Acute renal failure, worsening. 3. Anemia, requiring blood transfusion on this admission. 4. Hypertension. 5. Hyperlipidemia. 6. Possible urinary tract infection. 7. Chronic obstructive pulmonary disease. 8. Type 2 diabetes mellitus. PLAN: 1. Hebee-ph-sikyjzh congestive heart failure. The patient was on Lasix. She was receiving 40 mg of IV Lasix twice a day. This has resulted in renal failure, so we are backing off on the Lasix. We changed the Lasix to 40 mg oral once a day. We will closely follow. Be cautious regarding diuresis. 2. Acute renal failure. The patient continues to have worsening renal function, so we could not discharge the patient today. The patient is encouraged to have good oral intake. She is advised to at least take 2 L of oral intake today and closely follow. One could argue getting her IV fluids, but this might put her back into heart failure, so we will encourage that the patient to have good oral intake, and also, we will slow down the Lasix. We will hold the Lasix tonight, and we will recheck a basic metabolic panel in the a.m. 3. Hypertension. The patient's blood pressure seems to be well controlled for now. Continue with Toprol-XL and Procardia XL. We increased the Toprol-XL to 75 mg daily on this admission. 4. Chronic obstructive pulmonary disease, remains stable. No wheeze noted on the lung exam. Continue with current nebulizer treatments. 5. Urinary tract infection. The patient is noted to have E. coli, and she is currently on levofloxacin IV q.48 hours. We will change it to oral Levaquin at this time as the E. Coli is sensitive to Levaquin. 6. Type 2 diabetes mellitus. This is mostly diet controlled. Her sugars are within acceptable range. 7. We will recheck a basic metabolic panel in the a.m. [facility] /[id number]
[2017-07-02] MEDS: Sodium Chloride 0.9% 10 ML Syringe FLUSH PRN (16:01)
[2017-07-02] MEDS: atorvaSTATin 20 MG Tab PO SCH (21:46)
[2017-07-02] MEDS: NIFEdipine 30 MG Tab.ER PO SCH (21:47)
[2017-07-02] MEDS: oxyCODONE 5 MG Tab PO PRN (21:48)
[2017-07-03] MEDS: Heparin Sodium 5,000 Units/ML Vial SUBCUT SCH ×3 (06:00→21:35)
[2017-07-03] MEDS: Insulin Aspart 100 Units/ML 3 ML Pen SUBCUT SCH ×3 (08:21→17:35)
[2017-07-03] MEDS: oxyCODONE 5 MG Tab PO PRN ×2 (08:48→20:05)
[2017-07-03] MEDS: Metoprolol Succinate 25 MG Tab.ER PO SCH (08:49)
[2017-07-03] MEDS: Aspirin 81 MG Tab.Chew PO SCH (08:51)
[2017-07-03] MEDS: Iron Polysaccharides Complex 150 MG Cap PO SCH (08:51)
[2017-07-03] MEDS: Calcium Carbonate/Vitamin D3 1250 MG-200 Unit Tab PO SCH ×2 (08:51→21:36)
[2017-07-03] MEDS: Gabapentin 100 MG Cap PO SCH (08:51)
[2017-07-03] MEDS: Furosemide 40 MG Tab PO SCH (08:51)
[2017-07-03] MEDS: FERROUS GLUCONATE PO SCH ×2 (08:52→17:36)
[2017-07-03] MEDS: Albuterol/Ipratropium 3.0-0.5 MG/3 ML Neb Soln NEB SCH ×3 (08:59→21:36)
[2017-07-03] MEDS: Levofloxacin 500 MG Tab PO SCH (08:59)
[2017-07-03] MEDS: Sodium Chloride 0.9% 10 ML Syringe FLUSH PRN (09:00)
[2017-07-03] MEDS ORDERED: Levofloxacin 500 MG Tab PO SCH (09:00)
[2017-07-03] MEDS ORDERED: Sodium Chloride 0.9% 1,000 ML IV SCH (11:00)
--- NOTE | 2017-07-03 15:07 | PN ---
DATE: 07/03/2017 SUBJECTIVE: Ms. Nery Pagan is a 46-year-old female with medical history significant for hypertension, hyperlipidemia, chronic congestive heart failure with diastolic dysfunction, recent echocardiogram showing an ejection fraction of 60%. Admitted to the hospital with increasing shortness of breath and was noted to be in acute on chronic congestive heart failure with acute renal failure and anemia. For the last 24 hours, the patient denies any complaints of chest pain. No shortness of breath. No abdominal pain. No nausea. No vomiting. No diarrhea. REVIEW OF SYSTEMS: Cardiovascular, respiratory, gastrointestinal, neurology, constitutional were all evaluated. PHYSICAL EXAMINATION: Vital Signs: Temperature of 98.6, pulse of 71, blood pressure 123/73, respiratory rate of 20, saturating at 99%. General Appearance: The patient is well oriented to time, place, and person. Follows commands spontaneously. Cardiovascular System: S1, S2 heard with normal intensity. No gallops. Respiratory System: Clear to auscultation bilaterally. No wheeze. No crepitations. Abdomen: Soft. Bowel sounds positive. Nontender. No rigidity. Extremities: No edema, bilateral lower extremities. NEUROLOGY: No gross focal neurological deficit. MEDICATIONS: Reviewed. Continue with current medications. 1. We will decrease the Toprol-XL to 50 mg daily. 2. Continue with the Procardia XL 30 mg at bedtime. 3. Continue with oral Levaquin. LABORATORY DATA: Sodium 139, potassium 5, chloride 110, bicarb 21, BUN 65, creatinine 3.4, glucose 142. ASSESSMENT: 1. Acute renal failure. 2. Acute on chronic congestive heart failure secondary to diastolic dysfunction. 3. Anemia requiring blood transfusion on this admission. 4. Hypertension. 5. Hyperlipidemia. 6. Urinary tract infection. 7. Chronic obstructive pulmonary disease. 8. Type 2 diabetes mellitus. PLAN: 1. Acute renal failure. The patient continues to have worsening renal function. This is mainly from an aggressive diuresis. We will discontinue the Lasix. We will have her on IV fluids. The patient was encouraged to have good oral intake with water. She drank almost 2 L of fluid but still continues to have worsening renal function. We will give her IV normal saline at 75 mL/h for at least 12 hours and then reassess the BMP in the a.m. 2. Acute on chronic congestive heart failure, remains stable. We will need to discontinue the Lasix secondary to her ongoing acute renal failure and possible dehydration. 3. Hypertension. The patient's blood pressure seems to be well controlled. We will decrease the Toprol-XL to 50 mg and continue Procardia XL 30 mg daily. 4. Chronic obstructive pulmonary disease, remains stable. The patient does not have any wheeze noted on the lung exam. 5. Possible urinary tract infection. The patient is currently on oral Levaquin. Continue the same. Her urine culture was positive for E. coli, sensitive to Levaquin. 6. Her discharge plan is delayed secondary to ongoing renal failure and requiring IV fluids. [facility] /[id number]
[2017-07-03] MEDS: hydrALAZINE 25 MG Tab PO PRN (21:34)
[2017-07-03] MEDS: NIFEdipine 30 MG Tab.ER PO SCH (21:35)
[2017-07-03] MEDS: Zolpidem 5 MG Tab PO PRN (21:36)
[2017-07-03] MEDS: atorvaSTATin 20 MG Tab PO SCH (21:36)
[2017-07-04] MEDS: Heparin Sodium 5,000 Units/ML Vial SUBCUT SCH ×3 (05:47→22:42)
[2017-07-04] MEDS: Aspirin 81 MG Tab.Chew PO SCH (08:26)
[2017-07-04] MEDS: Gabapentin 100 MG Cap PO SCH (08:26)
[2017-07-04] MEDS: oxyCODONE 5 MG Tab PO PRN ×2 (08:26→20:29)
[2017-07-04] MEDS: Calcium Carbonate/Vitamin D3 1250 MG-200 Unit Tab PO SCH ×2 (08:26→22:41)
[2017-07-04] MEDS: Iron Polysaccharides Complex 150 MG Cap PO SCH (08:26)
[2017-07-04] MEDS: Metoprolol Succinate 50 MG Tab.ER PO SCH (08:26)
[2017-07-04] MEDS: FERROUS GLUCONATE PO SCH ×2 (08:27→17:03)
[2017-07-04] MEDS: Insulin Aspart 100 Units/ML 3 ML Pen SUBCUT SCH ×3 (08:28→17:05)
[2017-07-04] MEDS: Albuterol/Ipratropium 3.0-0.5 MG/3 ML Neb Soln NEB SCH ×3 (09:17→22:42)
[2017-07-04] MEDS: Sodium Chloride 0.9% 1,000 ML IV SCH (11:15)
--- NOTE | 2017-07-04 13:50 | PN ---
DATE: 07/04/2017 SUBJECTIVE: Ms. Nery Pagan is a 46-year-old female with medical history significant for hypertension, hyperlipidemia, chronic congestive heart failure with diastolic dysfunction, admitted to the hospital with complaints of increasing shortness of breath and was noted to be in acute on chronic congestive heart failure, acute renal failure, and anemia. For the last 24 hours, the patient was complaining of flank pain last night, and continues to have the flank pain this morning. She grades the pain as 8/10 in intensity, aggravated on movement, relieved with pain medication, nonradiating type of pain, associated with nausea but no vomiting. Denies any chest pain. No shortness of breath. REVIEW OF SYSTEMS: Cardiovascular, respiratory, gastrointestinal, neurology, constitutional were all evaluated. PHYSICAL EXAMINATION: Vital Signs: Temperature of 98.1, pulse of 72, blood pressure of 146/76, respiratory rate of 20, saturating at 100% on room air. General Appearance: The patient is well oriented to time, place, and person. Follows commands spontaneously. Cardiovascular System: S1, S2 heard with normal intensity. No gallops. Respiratory System: Clear to auscultation bilaterally. No wheeze. No crepitations. Abdomen: Soft. Bowel sounds positive. Nontender. No rigidity. Extremities: No edema in bilateral lower extremities. Neurology: No gross focal neurological deficit. MEDICATIONS: Reviewed. Continue with, 1. Albuterol nebulizer as needed for shortness of breath. 2. Aspirin 81 mg daily. 3. Lipitor 40 mg at bedtime. 4. Neurontin 100 mg daily. 5. Heparin 5000 subcutaneous q.8 hourly. 6. NovoLog supplemental scale. 7. Levaquin 500 mg every other day. 8. Toprol-XL 50 mg daily. 9. Procardia XL 30 mg at bedtime. 10.Oxycodone 5 mg every 4 hours as needed for pain. 11.Ambien 5 mg at bedtime as needed for sleep. LABORATORY DATA: Reviewed. Sodium 140, potassium 4.6, chloride 112, bicarb 21, BUN 61, creatinine 3.4, glucose 110. BNP 551. ASSESSMENT: 1. Acute renal failure. 2. Acute on chronic congestive heart failure secondary to diastolic dysfunction, improved. 3. Hypertension. 4. Hyperlipidemia. 5. Type 2 diabetes mellitus. 6. Chronic obstructive pulmonary disease. 7. Anemia, requiring blood transfusion on this admission. 8. Urinary tract infection. PLAN: 1. Acute on chronic congestive heart failure. This seems to be much improved. Actually, the patient got over diuresed, so resulting in acute renal failure. We are actually giving her some IV fluids. Hold the Lasix for now. 2. Acute renal failure. The patient continues to have worsening renal functions, though slightly improved from yesterday. We will continue with IV normal saline. We will recheck a basic metabolic panel in the a.m. Avoid nephrotoxic agents. The patient is complaining of some flank pain. We will order for ultrasound of the kidneys for further evaluation. 3. Urinary tract infection. The patient is noted to have E. coli in the urine culture sensitive to Levaquin, continue the same. Dose adjust Levaquin for renal function. 4. Chronic obstructive pulmonary disease, remains stable. No wheeze noted on the lung exam. Continue with current inhalation treatment. Nebulizer treatment as needed. 5. Type 2 diabetes mellitus. Continue with supplemental scale. Check her fingersticks with each meals, have her on supplemental scale insulin as needed for additional coverage of her blood glucose. 6. Anemia. The patient required blood transfusion on this admission. Exact etiology for anemia not clear. The patient does not have any iron or B12 or folate deficiency. Her peripheral smear is also within normal limits. She might need to be followed with Hematology as an outpatient. 7. Hypertension. The patient's blood pressure seems to be in acceptable range. Continue with Toprol-XL and Procardia-XL for now. 8. Discussed with family members at bedside. [facility] /[id number]
[2017-07-04] MEDS ORDERED: Sodium Polystyrene Sulfonate 15 GM/60 ML Susp 60 ML Bot PO ONE (21:31)
[2017-07-04] MEDS ORDERED: Morphine 2 MG/ML Syringe IVPUSH PRN (22:27)
[2017-07-04] MEDS: NIFEdipine 30 MG Tab.ER PO SCH (22:41)
[2017-07-04] MEDS: hydrALAZINE 25 MG Tab PO PRN (22:42)
[2017-07-04] MEDS: Zolpidem 5 MG Tab PO PRN (22:42)
[2017-07-04] MEDS: atorvaSTATin 20 MG Tab PO SCH (22:42)
[2017-07-05] MEDS: Sodium Chloride 0.9% 1,000 ML IV SCH (03:09)
[2017-07-05] MEDS: oxyCODONE 5 MG Tab PO PRN (05:33)
[2017-07-05] MEDS: Heparin Sodium 5,000 Units/ML Vial SUBCUT SCH (05:34)
[2017-07-05] MEDS: Insulin Aspart 100 Units/ML 3 ML Pen SUBCUT SCH ×2 (07:56→12:07)
[2017-07-05] MEDS: Albuterol/Ipratropium 3.0-0.5 MG/3 ML Neb Soln NEB SCH (09:19)
[2017-07-05] MEDS: Metoprolol Succinate 50 MG Tab.ER PO SCH (09:50)
[2017-07-05] MEDS: Aspirin 81 MG Tab.Chew PO SCH (09:50)
[2017-07-05] MEDS: Gabapentin 100 MG Cap PO SCH (09:50)
[2017-07-05] MEDS: Calcium Carbonate/Vitamin D3 1250 MG-200 Unit Tab PO SCH (09:51)
[2017-07-05] MEDS: Iron Polysaccharides Complex 150 MG Cap PO SCH (09:51)
[2017-07-05] MEDS: FERROUS GLUCONATE PO SCH (09:52)
[2017-07-05] MEDS: Levofloxacin 500 MG Tab PO SCH (09:57)
[2017-07-05 11:12] VITALS: BP 126/71
--- NOTE | 2017-07-05 14:39 | DISCH ---
DATE OF SERVICE: 07/05/2017 ADMITTING DIAGNOSES: 1. Tsfsu-av-ccuyluh congestive heart failure. 2. Anemia. 3. Acute hyperkalemia. 4. Rzntx-kq-fsfbnff renal failure. 5. Urinary tract infection. DISCHARGE DIAGNOSES: 1. Jynxl-mo-qfhzsnz congestive heart failure, secondary to diastolic dysfunction, improved. Recent echocardiogram showed ejection fraction of 60%. 2. Lpfxd-ll-affqsez renal failure, not resolved. 3. Acute hyperkalemia, improved with Kayexalate. 4. Anemia, requiring blood transfusion on this admission. 5. Chronic obstructive pulmonary disease. 6. Urinary tract infection with Escherichia coli, responded to IV antibiotics. HISTORY OF PRESENT ILLNESS: Mrs. Nery Pagan is a 46-year-old female with medical history significant for hypertension, hyperlipidemia, chronic obstructive pulmonary disease, was admitted to the hospital with complaints of increasing shortness of breath and was noted to have ymzed-qf-vyarpoq congestive heart failure with possible urinary tract infection. The patient was also noted to have ongoing acute renal failure. Her recent echocardiogram showed evidence of good ejection fraction but with possible grade 2 diastolic dysfunction. The patient was treated with IV Lasix. Later, her hospital course was further complicated with wllgy-jt-modtclh renal failure with creatinine increasing to 3.5 and 3.4. She also had acute hyperkalemia on this admission requiring Kayexalate treatment. The patient was noted to have UTI, and her urine culture was positive for E. Coli. She was treated with IV Levaquin. Her COPD remained stable. She received blood transfusion on this admission for her anemia. Her hemoglobin was down to 7.8, requiring blood transfusion. She is being transferred to [facility] for Nephrology consultation, evaluation, and treatment for her oogib-hz-oyjtmmq renal failure and worsening renal function. She is discharged to [facility] in stable condition, and Dr. Olmedo has accepted the patient's transfer. DISCHARGE MEDICATIONS: Include: 1. Aspirin 81 mg daily. 2. Calcium carbonate and vitamin D 1 tablet twice a day. 3. Ferrous gluconate 1 tablet twice a day. 4. Lasix 40 mg daily. 5. Neurontin 600 mg daily. 6. Metoprolol 50 mg daily. 7. Procardia XL 60 mg daily. 8. Lipitor 40 mg at bedtime. PHYSICAL EXAMINATION: On the day of discharge: Vital Signs: Temperature of 97.5, pulse of 93, blood pressure of 126/71, respiratory rate of 20, and saturating at 97% on room air. General Appearance: The patient is well oriented to time, place, and person. Follows commands spontaneously. Cardiovascular System: S1 and S2 heard with normal intensity. No gallops. Respiratory System: Clear to auscultation bilaterally. No wheeze. No crepitations. Abdomen: Soft. Bowel sounds positive. Nontender. No rigidity. Extremities: Mild edema noted in the bilateral lower extremities. Neurology: No gross focal neurological deficits. CONDITION ON ADMISSION: Poor. CONDITION ON DISCHARGE: Fair. DISPOSITION: Discharged to [facility]. DIET: Cardiac healthy diet and fluid restriction to 1.2 L a day. FOLLOWUP: Follow up with primary care physician after getting discharged from [facility]. TIME SPENT: Spent over 35 minutes of time in evaluating and treating this patient and making discharge plans. [facility] /[id number]
[2017-07-05] MEDS ORDERED: FERROUS GLUCONATE 324 MG PO SCH (18:00)
== END 2017-07-05 12:00 | DRG 291 ==
LOC: DL.ED 01:46 → UNDOADMIN 03:23 → DL.MS 03:23
PROVIDERS: ADMIT Internal Medicine; ATTEND Internal Medicine
DX: I13.0 Hypertensive heart and chronic kidney disease with heart failure and stage 1 through stage 4 chronic kidney disease, or unspecified chronic kidney disease (principal); I50.33 Acute on chronic diastolic (congestive) heart failure; N17.9 Acute kidney failure, unspecified; N39.0 Urinary tract infection, site not specified; N18.9 Chronic kidney disease, unspecified; D64.9 Anemia, unspecified; E87.5 Hyperkalemia; B96.20 Unspecified Escherichia coli [E. coli] as the cause of diseases classified elsewhere; J44.9 Chronic obstructive pulmonary disease, unspecified; E78.5 Hyperlipidemia, unspecified; Z79.82 Long term (current) use of aspirin; Z79.899 Other long term (current) drug therapy; E11.22 Type 2 diabetes mellitus with diabetic chronic kidney disease; K52.9 Noninfective gastroenteritis and colitis, unspecified; Z88.8 Allergy status to other drugs, medicaments and biological substances; H54.7 Unspecified visual loss; Z86.74 Personal history of sudden cardiac arrest; Z87.01 Personal history of pneumonia (recurrent); K21.9 Gastro-esophageal reflux disease without esophagitis; E11.21 Type 2 diabetes mellitus with diabetic nephropathy; M19.90 Unspecified osteoarthritis, unspecified site; G89.29 Other chronic pain; M54.9 Dorsalgia, unspecified; M48.00 Spinal stenosis, site unspecified; G43.909 Migraine, unspecified, not intractable, without status migrainosus; E11.40 Type 2 diabetes mellitus with diabetic neuropathy, unspecified; F41.9 Anxiety disorder, unspecified; F32.9 Major depressive disorder, single episode, unspecified; F41.0 Panic disorder [episodic paroxysmal anxiety]; Z79.4 Long term (current) use of insulin
CPT/HCPCS: 36415; 71045; 76775; 80048; 80053; 81001; 82009; 82150; 82272; 82607; 82728; 82746; 82962; 83540; 83550; 83735; 83880; 84100; 84484; 85008; 85025; 85027; 85379; 86850; 86900; 86901; 87040; 87086; 87088; 87186; 93005; 93306; 93975; 94060; 94640; 96374; 99285; A9270-GY; J1644; J1940; J1956; J7030; J7050

== ENCOUNTER 2017-09-08 12:57 | Emergency (ER) | payer MEDICAID, OTHER ==
--- NOTE | 2017-09-08 13:44 | EDM.PDOC ---
ED HPI GENERAL MEDICAL PROBLEM - General Chief Complaint: Possible Sepsis Stated Complaint: IN BY AMBULANCE Time Seen by Provider: 09/08/17 13:20 Source of Information: Reports: Patient History Limitations: Reports: No Limitations - History of Present Illness INITIAL COMMENTS - FREE TEXT/NARRATIVE: This 47 yo female patient reports to the ED due to an infection in her dialysis port. The patient reports she started noticing some redness in the port site on Tuesday which had gotten worse by Tuesday. The patient has dialysis on Tuesday and Tuesday in [place]. On Tuesday, [place] did lab work to get blood culture. During the visit, a call was placed to [facility] for a report. According to the [facility], the culture grew out Gram Positive Cocci (Staph Aureus) and an order was placed for the patient to get 1.75 grams of Vanco on 09/10/17 and again on 09/13/17 during the last 2 hours of dialysis. Onset: Gradual Duration: Day(s):, Constant, Getting Worse Location: Reports: Chest, Generalized Quality: Reports: Other Severity: Moderate Improves with: Reports: None Worsens with: Reports: None Associated Symptoms: Reports: No Other Symptoms - Related Data Allergies Allergy/AdvReac Type Severity Reaction Status Date / Time acetaminophen Allergy Vomiting Verified 06/29/17 01:53 Home Meds: Home Meds Aspirin [Sixto Chewable Aspirin] 81 mg PO DAILY 01/29/15 [History] Gabapentin [Neurontin] 600 mg PO DAILY #30 tablet 02/05/15 [Rx] Calcium Citrate/Vitamin D3 [Calcium Citrate - Vit D Caplet] 1 each PO BID [History] atorvaSTATin [Lipitor] 40 mg PO BEDTIME 06/13/17 [History] Bumetanide 2 mg PO BID 09/08/17 [History] Carvedilol 25 mg PO BID 09/08/17 [History] Insulin Detemir [Levemir Flextouch] 30 unit SQ BEDTIME 09/08/17 [History] Vitamin B Complex with C [Super B With Vitamin C] 1 cap PO DAILY 09/08/17 [ History] metOLazone [Metolazone] 5 mg PO DAILY 09/08/17 [History] Past Medical History HEENT History: Reports: Impaired Vision Cardiovascular History: Reports: High Cholesterol, Hypertension, Syncope, Other (See Below) Other Cardiovascular History: "have heart disease" Respiratory History: Reports: Bronchitis, Recurrent, COPD, Pneumonia, Recurrent Gastrointestinal History: Reports: Chronic Diarrhea, GERD Other Gastrointestinal History: Hernia repair on right side of abdomen Genitourinary History: Reports: Diabetic Nephropathy Musculoskeletal History: Reports: Arthritis, Back Pain, Chronic, Other (See Below) Other Musculoskeletal History: spinal stenosis and arthritis in spine Neurological History: Reports: Concussion, Headaches, Chronic, Migraines, Neuropathy, Diabetic Psychiatric History: Reports: Anxiety, Depression, Panic Attack Endocrine/Metabolic History: Reports: Diabetes, Type II Hematologic History: Reports: Anemia, Blood Transfusion(s) Dermatologic History: Reports: Other (See Below) Other Dermatologic History: past history of betancur. patient states 90% of body - Infectious Disease History Infectious Disease History: Reports: Chicken Pox - Past Surgical History Head Surgeries/Procedures: Reports: None Cardiovascular Surgical History: Reports: None GI Surgical History: Reports: Hernia Repair/Other Musculoskeletal Surgical History: Reports: Amputation Dermatological Surgical History: Reports: Skin Graft Social & Family History - Family History Family Medical History: Noncontributory Cardiac: Reports: High Cholesterol, Hypertension, Other (See Below) Other Cardiac Family History: "bad heart" GI: Reports: Cirrhosis Other GI Family History: "sister has cirrhosis" Musculoskeletal: Reports: Arthritis, Back pain, Chronic, RA Other Musculoskeletal Family History: mom has Ra,dad has chronic back pain and arthritis Neurological: Reports: Alzheimers Disease, Dementia, Other (See Below) Other Neurological Family History: dad has dementia and alzheimers disease and brother has permanent brain damage Psychiatric: Reports: Depression Endocrine/Metabolic: Reports: Diabetes, Type I Other Endocrine/Metabolic Family History: Mom - Caffeine Use Caffeine Use: Reports: Coffee, Soda, Tea ED ROS GENERAL - Review of Systems Review Of Systems: ROS reveals no pertinent complaints other than HPI. ED EXAM, SEPSIS - Physical Exam Exam: See Below Exam Limited By: No Limitations General Appearance: Alert, WD/WN, No Apparent Distress Eye Exam: Bilateral Eye: EOMI, Normal Inspection, PERRL Ears: Normal External Exam, Normal Canal, Hearing Grossly Normal, Normal TMs Nose: Normal Inspection, Normal Mucosa, No Blood Throat/Mouth: Normal Inspection, Normal Lips, Normal Teeth, Normal Gums, Normal Oropharynx, Normal Voice, No Airway Compromise Head: Atraumatic, Normocephalic Neck: Normal Inspection, Supple, Non-Tender, Full Range of Motion Respiratory/Chest: No Respiratory Distress, Lungs Clear, Normal Breath Sounds, No Accessory Muscle Use, Chest Non-Tender Cardiovascular: Normal Peripheral Pulses, Regular Rate, Rhythm, No Edema, No Gallop, No JVD, No Murmur, No Rub GI/Abdominal Exam: Normal Bowel Sounds, Soft, Non-Tender, No Organomegaly, No Distention, No Abnormal Bruit, No Mass, Pelvis Stable (Female) Exam: Deferred Rectal (Female) Exam: Deferred Back: Normal Inspection, Full Range of Motion, NT Extremities: Normal Inspection, Normal Range of Motion, Non-Tender, No Pedal Edema, Normal Capillary Refill Neurological: Alert, Oriented Psychiatric: Normal Affect, Normal Mood Skin: Erythema (Port site), Increased Warmth Course - Vital Signs Last Recorded V/S: Last Vital Signs Temp 38.4 C H 09/08/17 13:06 Pulse 78 09/08/17 13:06 Resp 16 09/08/17 13:06 BP 141/70 H 09/08/17 13:06 Pulse Ox 92 L 09/08/17 13:06 - Orders/Labs/Meds Orders: Active Orders 24 hr Category Date Time Status CULTURE BLOOD [BC] Stat Lab 09/08/17 13:28 Ordered CULTURE BLOOD [BC] Stat Lab 09/08/17 13:28 Ordered Vancomycin 1 gm Med 09/08/17 15:07 Ordered Sodium Chloride 0.9% [Normal Saline] 250 ml IV ONETIME Blood Culture x2 Reflex Set [OM.PC] Stat Oth 09/08/17 13:28 Ordered Medication Orders Vancomycin HCl 1 gm/ Sodium (Chloride) 250 mls @ 167 mls/hr IV ONETIME ONE Stop: 09/08/17 16:36 Labs: Laboratory Tests 09/08/17 09/08/17 09/08/17 Range/Units 13:38 13:38 13:38 WBC 21.1 H (5.0-10.0) 10^3/uL RBC 3.50 L (4.2-5.4) 10^6/uL Hgb 9.6 L D (12.0-16.0) g/dL Hct 30.1 L (37.0-47.0) % MCV 86.0 (80-100) fL MCH 27.4 (27.0-34.0) pg MCHC 31.9 L (33.0-35.0) g/dL Plt Count 107 L D (150-450) 10^3/uL Neut % (Auto) 85.1 H (42.2-75.2) % Lymph % (Auto) 4.6 L (20.5-50.1) % [place] % (Auto) 9.9 H (2-8) % Eos % (Auto) 0.3 L (1.0-3.0) % Baso % (Auto) 0.1 (0.0-1.0) % Add Manual Diff Yes Neutrophils % (Manual) 68 (42-75) % Band Neutrophils % 16 % Lymphocytes % (Manual) 8 L (20-50) % Monocytes % (Manual) 8 (2-8) % Sodium 127 L D (135-145) mmol/L Potassium 3.0 L D (3.6-5.0) mmol/L Chloride 91 L D (101-111) mmol/L Carbon Dioxide 23.0 (21.0-31.0) mmol/L Anion Gap 16.0 BUN 37 H (7-18) mg/dL Creatinine 5.2 H D (0.6-1.3) mg/dL Est Cr Clr Drug Dosing 11.67 mL/min Estimated GFR (MDRD) 9 BUN/Creatinine Ratio 7.11 Glucose 112 H (74-105) mg/dL Lactic Acid 0.7 (0.5-2.2) mmol/L Calcium 7.5 L (8.4-10.2) mg/dl Total Bilirubin 1.2 H (0.2-1.0) mg/dL AST 27 (10-42) IU/L ALT 35 (10-60) IU/L Alkaline Phosphatase 147 H (42-121) IU/L Total Protein 6.6 L (6.7-8.2) g/dl Albumin 2.5 L (3.2-5.5) g/dl Globulin 4.1 Albumin/Globulin Ratio 0.61 Meds: Medications Generic Name Dose Route Start Last Admin Trade Name Freq PRN Reason Stop Dose Admin Vancomycin HCl 1 gm/ Sodium 250 mls @ 167 mls/hr 09/08/17 15:07 Chloride IV 09/08/17 16:36 ONETIME ONE - Re-Assessments/Exams Free Text/Narrative Re-Assessment/Exam: 09/08/17 15:09 Discussed the current examination and lab results with the [facility] and the plans to transfer the patient to [facility] in [place]. Departure - Departure Time of Disposition: 15:11 Disposition: DC/Tfer to [facility] 02 Condition: Poor Clinical Impression: Septicemia due to Staphylococcus CKD (chronic kidney disease) Qualifiers: Chronic kidney disease stage: unspecified stage Qualified Code(s): N18.9 - Chronic kidney disease, unspecified - Discharge Information *PRESCRIPTION DRUG MONITORING PROGRAM REVIEWED*: Not Applicable *COPY OF PRESCRIPTION DRUG MONITORING REPORT IN PATIENT APOLINAR: Not Applicable Forms: Interfacility Transfer EMTALA Care Plan Goals: Discussed the examination, history and lab results with Dr. Rodriguez ( Hospitalist with [facility] in [place]). Dr. Jaffe accepted the patient for continued evaluation and further management. The patient will be transported by [facility]. - My Orders Last 24 Hours: My Active Orders 09/08/17 13:28 CULTURE BLOOD [BC] Stat CULTURE BLOOD [BC] Stat Blood Culture x2 Reflex Set [OM.PC] Stat 09/08/17 15:07 Vancomycin 1 gm Sodium Chloride 0.9% [Normal Saline] 250 ml IV ONETIME - Assessment/Plan Last 24 Hours: My Active Orders 09/08/17 13:28 CULTURE BLOOD [BC] Stat CULTURE BLOOD [BC] Stat Blood Culture x2 Reflex Set [OM.PC] Stat 09/08/17 15:07 Vancomycin 1 gm Sodium Chloride 0.9% [Normal Saline] 250 ml IV ONETIME
[2017-09-08 15:29] VITALS: BP 133/55
[2017-09-08] MEDS: LORazepam 2 MG/ML Syringe IVPUSH ONE (15:42)
== END 2017-09-08 15:48 ==
LOC: DL.ED 12:57
DX: T85.71XA Infection and inflammatory reaction due to peritoneal dialysis catheter, initial encounter (principal); A41.2 Sepsis due to unspecified staphylococcus; I12.9 Hypertensive chronic kidney disease with stage 1 through stage 4 chronic kidney disease, or unspecified chronic kidney disease; N18.9 Chronic kidney disease, unspecified; E78.00 Pure hypercholesterolemia, unspecified; J44.9 Chronic obstructive pulmonary disease, unspecified; E11.22 Type 2 diabetes mellitus with diabetic chronic kidney disease; E11.21 Type 2 diabetes mellitus with diabetic nephropathy; F41.9 Anxiety disorder, unspecified; F32.9 Major depressive disorder, single episode, unspecified; D64.9 Anemia, unspecified; Z79.4 Long term (current) use of insulin; Z99.2 Dependence on renal dialysis; Z88.6 Allergy status to analgesic agent; Z79.82 Long term (current) use of aspirin
CPT/HCPCS: 36415; 80053; 83605; 85025; 87040; 96365; 96375; 99285; J2060; J3370; J7050; 87077; 87186

== ENCOUNTER 2017-10-06 16:29 | Emergency (ER) | payer MEDICAID, OTHER ==
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
[2017-10-06 17:45] LABS: ANION GAP 16.5
[2017-10-06 18:37] VITALS: BP 154/75
[2017-10-06] MEDS ORDERED: Levofloxacin/Dextrose 5%-Water 500 MG in Premix Bag 1 BAG IV ONE (22:47)
[2017-10-06] MEDS ORDERED: cefTRIAXone 1 GM Vial IVPUSH ONE (22:47)
== END 2017-10-07 00:23 ==
LOC: DL.ED 16:29
DX: J18.9 Pneumonia, unspecified organism (principal); I12.9 Hypertensive chronic kidney disease with stage 1 through stage 4 chronic kidney disease, or unspecified chronic kidney disease; N18.9 Chronic kidney disease, unspecified; E78.00 Pure hypercholesterolemia, unspecified; J44.9 Chronic obstructive pulmonary disease, unspecified; E11.21 Type 2 diabetes mellitus with diabetic nephropathy; F32.9 Major depressive disorder, single episode, unspecified; F41.9 Anxiety disorder, unspecified; E11.40 Type 2 diabetes mellitus with diabetic neuropathy, unspecified; E11.22 Type 2 diabetes mellitus with diabetic chronic kidney disease; Z88.6 Allergy status to analgesic agent; Z79.899 Other long term (current) drug therapy
CPT/HCPCS: 36415; 80053; 83605; 85025; 87040; 87077; 87186; 96365; 96375; 99285; J0696; J1956

== ENCOUNTER 2017-11-04 02:17 | Emergency (ER) | payer MEDICAID, OTHER ==
[2017-11-04] MEDS ORDERED: Naloxone 2 MG/2 ML Syringe IVPUSH ONE (02:27)
[2017-11-04] MEDS ORDERED: Naloxone 2 MG/2 ML Syringe ONE (02:29)
--- NOTE | 2017-11-04 02:32 | EDM.PDOC ---
ED HPI GENERAL MEDICAL PROBLEM - General Chief Complaint: General Stated Complaint: AMBULANCE-UNRESPONSIVE Time Seen by Provider: 11/04/17 02:28 Source of Information: Reports: EMS History Limitations: Reports: Altered Mental Status - History of Present Illness INITIAL COMMENTS - FREE TEXT/NARRATIVE: EMS state were called to appt where people inside told them pt has been lying in a couch since 1 o'clock and they were unable to wake her up. EMS arrived @ scene of unresponsive pt. pt arrived without verbal response but did notice she would office specialist her left index finger occasionally. noted pt has dialysis port. - Related Data Allergies Allergy/AdvReac Type Severity Reaction Status Date / Time acetaminophen Allergy Vomiting Verified 10/06/17 16:42 Home Meds: Home Meds Aspirin [Sixto Chewable Aspirin] 81 mg PO DAILY 01/29/15 [History] Gabapentin [Neurontin] 600 mg PO DAILY #30 tablet 02/05/15 [Rx] Calcium Citrate/Vitamin D3 [Calcium Citrate - Vit D Caplet] 1 each PO BID [History] atorvaSTATin [Lipitor] 40 mg PO BEDTIME 06/13/17 [History] Bumetanide 2 mg PO BID 09/08/17 [History] Carvedilol 25 mg PO BID 09/08/17 [History] Insulin Detemir [Levemir Flextouch] 30 unit SQ BEDTIME 09/08/17 [History] Vitamin B Complex with C [Super B With Vitamin C] 1 cap PO DAILY 09/08/17 [ History] metOLazone [Metolazone] 5 mg PO DAILY 09/08/17 [History] hydrALAZINE HCl [Hydralazine HCl] 25 mg PO TID 10/06/17 [History] Past Medical History HEENT History: Reports: Impaired Vision Cardiovascular History: Reports: High Cholesterol, Hypertension, Syncope, Other (See Below) Other Cardiovascular History: "have heart disease" Respiratory History: Reports: Bronchitis, Recurrent, COPD, Pneumonia, Recurrent Gastrointestinal History: Reports: Chronic Diarrhea, GERD Other Gastrointestinal History: Hernia repair on right side of abdomen Genitourinary History: Reports: Diabetic Nephropathy Musculoskeletal History: Reports: Arthritis, Back Pain, Chronic, Other (See Below) Other Musculoskeletal History: spinal stenosis and arthritis in spine Neurological History: Reports: Concussion, Headaches, Chronic, Migraines, Neuropathy, Diabetic Psychiatric History: Reports: Anxiety, Depression, Panic Attack Endocrine/Metabolic History: Reports: Diabetes, Type II Hematologic History: Reports: Anemia, Blood Transfusion(s) Dermatologic History: Reports: Other (See Below) Other Dermatologic History: past history of betancur. patient states 90% of body - Infectious Disease History Infectious Disease History: Reports: Chicken Pox - Past Surgical History Head Surgeries/Procedures: Reports: None Cardiovascular Surgical History: Reports: None GI Surgical History: Reports: Hernia Repair/Other Musculoskeletal Surgical History: Reports: Amputation Dermatological Surgical History: Reports: Skin Graft Social & Family History - Family History Family Medical History: Noncontributory Cardiac: Reports: High Cholesterol, Hypertension, Other (See Below) Other Cardiac Family History: "bad heart" GI: Reports: Cirrhosis Other GI Family History: "sister has cirrhosis" Musculoskeletal: Reports: Arthritis, Back pain, Chronic, RA Other Musculoskeletal Family History: mom has Ra,dad has chronic back pain and arthritis Neurological: Reports: Alzheimers Disease, Dementia, Other (See Below) Other Neurological Family History: dad has dementia and alzheimers disease and brother has permanent brain damage Psychiatric: Reports: Depression Endocrine/Metabolic: Reports: Diabetes, Type I Other Endocrine/Metabolic Family History: Mom - Caffeine Use Caffeine Use: Reports: Coffee, Soda, Tea ED ROS GENERAL - Review of Systems Review Of Systems: ROS reveals no pertinent complaints other than HPI. ED EXAM, GENERAL - Physical Exam Exam: See Below Exam Limited By: Altered Mental Status General Appearance: Other (unresponsive) Eye Exam: Bilateral Eye: PERRL (pupils ess ER @ 2mm) Ears: Normal External Exam Head: Atraumatic Neck: Normal Inspection Respiratory/Chest: Normal Breath Sounds Cardiovascular: Regular Rate, Rhythm GI/Abdominal: No Distention Neurological: Unresponsive Skin Exam: Warm, Dry, Normal Color Lymphatic: No Adenopathy Course - Vital Signs Last Recorded V/S: Last Vital Signs Temp 36.4 C 11/04/17 02:28 Pulse 71 11/04/17 03:37 Resp 14 11/04/17 03:37 BP 117/66 11/04/17 03:14 Pulse Ox 94 L 11/04/17 03:37 - Orders/Labs/Meds Orders: Active Orders 24 hr Category Date Time Status Chest 1V Frontal [CR] Urgent Exams 11/04/17 03:01 Taken Head wo Cont [CT] Urgent Exams 11/04/17 03:07 Taken Labs: Laboratory Tests 11/04/17 11/04/17 11/04/17 Range/Units 02:21 02:21 02:21 WBC 19.0 H (5.0-10.0) 10^3/uL RBC 2.76 L (4.2-5.4) 10^6/uL Hgb 7.4 L (12.0-16.0) g/dL Hct 24.9 L (37.0-47.0) % MCV 90.2 (80-100) fL MCH 26.8 L (27.0-34.0) pg MCHC 29.7 L (33.0-35.0) g/dL Plt Count 243 (150-450) 10^3/uL Neut % (Auto) 85.0 H (42.2-75.2) % Lymph % (Auto) 9.7 L (20.5-50.1) % [place] % (Auto) 5.0 (2-8) % Eos % (Auto) 0.1 L (1.0-3.0) % Baso % (Auto) 0.2 (0.0-1.0) % Sodium 135 (135-145) mmol/L Potassium 4.9 (3.6-5.0) mmol/L Chloride 96 L (101-111) mmol/L Carbon Dioxide 26.0 (21.0-31.0) mmol/L Anion Gap 17.9 BUN 56 H (7-18) mg/dL Creatinine 7.2 H D (0.6-1.3) mg/dL Est Cr Clr Drug Dosing TNP Estimated GFR (MDRD) 6 BUN/Creatinine Ratio 7.77 Glucose 180 H (74-105) mg/dL Calcium 7.6 L (8.4-10.2) mg/dl Total Bilirubin 0.7 (0.2-1.0) mg/dL AST 121 H (10-42) IU/L ALT 83 H (10-60) IU/L Alkaline Phosphatase 202 H (42-121) IU/L Ammonia 18 (11-35) umol/L Troponin I 0.05 H* (0.00-0.02) ng/ml B-Natriuretic Peptide (0-100) pg/ml Total Protein 8.6 H (6.7-8.2) g/dl Albumin 2.7 L (3.2-5.5) g/dl Globulin 5.9 Albumin/Globulin Ratio 0.46 Urine Color (YELLOW) Urine Appearance (CLEAR) Urine pH (5.0-9.0) Ur Specific [place] (1.005-1.030) Urine Protein (NEGATIVE) Urine Glucose (UA) (NEGATIVE) Urine Ketones (NEGATIVE) Urine Occult Blood (NEGATIVE) Urine Nitrite (NEGATIVE) Urine Bilirubin (NEGATIVE) Urine Urobilinogen (0.2-1.0) mg/dL Ur Leukocyte Esterase (NEGATIVE) Urine Opiates Screen (NEGATIVE) Ur Oxycodone Screen (NEGATIVE) Urine Methadone Screen (NEGATIVE) Ur Barbiturates Screen (NEGATIVE) U Tricyclic Antidepress (NEGATIVE) Ur Phencyclidine Scrn (NEGATIVE) Ur Amphetamine Screen (NEGATIVE) U Methamphetamines Scrn (NEGATIVE) Urine MDMA Screen (NEGATIVE) U Benzodiazepines Scrn (NEGATIVE) Urine Cocaine Screen (NEGATIVE) U Marijuana (THC) Screen (NEGATIVE) Ethyl Alcohol mg/dL 11/04/17 11/04/17 11/04/17 Range/Units 02:21 02:21 02:41 WBC (5.0-10.0) 10^3/uL RBC (4.2-5.4) 10^6/uL Hgb (12.0-16.0) g/dL Hct (37.0-47.0) % MCV (80-100) fL MCH (27.0-34.0) pg MCHC (33.0-35.0) g/dL Plt Count (150-450) 10^3/uL Neut % (Auto) (42.2-75.2) % Lymph % (Auto) (20.5-50.1) % [place] % (Auto) (2-8) % Eos % (Auto) (1.0-3.0) % Baso % (Auto) (0.0-1.0) % Sodium (135-145) mmol/L Potassium (3.6-5.0) mmol/L Chloride (101-111) mmol/L Carbon Dioxide (21.0-31.0) mmol/L Anion Gap BUN (7-18) mg/dL Creatinine (0.6-1.3) mg/dL Est Cr Clr Drug Dosing Estimated GFR (MDRD) BUN/Creatinine Ratio Glucose (74-105) mg/dL Calcium (8.4-10.2) mg/dl Total Bilirubin (0.2-1.0) mg/dL AST (10-42) IU/L ALT (10-60) IU/L Alkaline Phosphatase (42-121) IU/L Ammonia (11-35) umol/L Troponin I (0.00-0.02) ng/ml B-Natriuretic Peptide 2230 H (0-100) pg/ml Total Protein (6.7-8.2) g/dl Albumin (3.2-5.5) g/dl Globulin Albumin/Globulin Ratio Urine Color Yellow (YELLOW) Urine Appearance Turbid (CLEAR) Urine pH 6.0 (5.0-9.0) Ur Specific [place] 1.025 (1.005-1.030) Urine Protein >=300 H (NEGATIVE) Urine Glucose (UA) 100 H (NEGATIVE) Urine Ketones Negative (NEGATIVE) Urine Occult Blood Moderate H (NEGATIVE) Urine Nitrite Negative (NEGATIVE) Urine Bilirubin Negative (NEGATIVE) Urine Urobilinogen 0.2 (0.2-1.0) mg/dL Ur Leukocyte Esterase Moderate H (NEGATIVE) Urine Opiates Screen (NEGATIVE) Ur Oxycodone Screen (NEGATIVE) Urine Methadone Screen (NEGATIVE) Ur Barbiturates Screen (NEGATIVE) U Tricyclic Antidepress (NEGATIVE) Ur Phencyclidine Scrn (NEGATIVE) Ur Amphetamine Screen (NEGATIVE) U Methamphetamines Scrn (NEGATIVE) Urine MDMA Screen (NEGATIVE) U Benzodiazepines Scrn (NEGATIVE) Urine Cocaine Screen (NEGATIVE) U Marijuana (THC) Screen (NEGATIVE) Ethyl Alcohol 6 mg/dL 11/04/17 Range/Units 02:41 WBC (5.0-10.0) 10^3/uL RBC (4.2-5.4) 10^6/uL Hgb (12.0-16.0) g/dL Hct (37.0-47.0) % MCV (80-100) fL MCH (27.0-34.0) pg MCHC (33.0-35.0) g/dL Plt Count (150-450) 10^3/uL Neut % (Auto) (42.2-75.2) % Lymph % (Auto) (20.5-50.1) % [place] % (Auto) (2-8) % Eos % (Auto) (1.0-3.0) % Baso % (Auto) (0.0-1.0) % Sodium (135-145) mmol/L Potassium (3.6-5.0) mmol/L Chloride (101-111) mmol/L Carbon Dioxide (21.0-31.0) mmol/L Anion Gap BUN (7-18) mg/dL Creatinine (0.6-1.3) mg/dL Est Cr Clr Drug Dosing Estimated GFR (MDRD) BUN/Creatinine Ratio Glucose (74-105) mg/dL Calcium (8.4-10.2) mg/dl Total Bilirubin (0.2-1.0) mg/dL AST (10-42) IU/L ALT (10-60) IU/L Alkaline Phosphatase (42-121) IU/L Ammonia (11-35) umol/L Troponin I (0.00-0.02) ng/ml B-Natriuretic Peptide (0-100) pg/ml Total Protein (6.7-8.2) g/dl Albumin (3.2-5.5) g/dl Globulin Albumin/Globulin Ratio Urine Color (YELLOW) Urine Appearance (CLEAR) Urine pH (5.0-9.0) Ur Specific [place] (1.005-1.030) Urine Protein (NEGATIVE) Urine Glucose (UA) (NEGATIVE) Urine Ketones (NEGATIVE) Urine Occult Blood (NEGATIVE) Urine Nitrite (NEGATIVE) Urine Bilirubin (NEGATIVE) Urine Urobilinogen (0.2-1.0) mg/dL Ur Leukocyte Esterase (NEGATIVE) Urine Opiates Screen Negative (NEGATIVE) Ur Oxycodone Screen Negative (NEGATIVE) Urine Methadone Screen Negative (NEGATIVE) Ur Barbiturates Screen Negative (NEGATIVE) U Tricyclic Antidepress Negative (NEGATIVE) Ur Phencyclidine Scrn Negative (NEGATIVE) Ur Amphetamine Screen Negative (NEGATIVE) U Methamphetamines Scrn Negative (NEGATIVE) Urine MDMA Screen Negative (NEGATIVE) U Benzodiazepines Scrn Negative (NEGATIVE) Urine Cocaine Screen Negative (NEGATIVE) U Marijuana (THC) Screen Negative (NEGATIVE) Ethyl Alcohol mg/dL Meds: Medications Discontinued Medications Generic Name Dose Route Start Last Admin Trade Name Freq PRN Reason Stop Dose Admin Naloxone HCl 2 mg 11/04/17 02:27 11/04/17 02:41 Narcan IVPUSH 11/04/17 02:28 2 mg ONETIME ONE Administration Naloxone HCl Confirm 11/04/17 02:29 11/04/17 02:40 Narcan Administered 11/04/17 02:30 Not Given Dose 2 mg .ROUTE .STK-MED ONE - Re-Assessments/Exams Free Text/Narrative Re-Assessment/Exam: 11/04/17 03:30 pt woke up more and finally alert states doesn't recall what happened and didn' t know she is in the hospital. states gets dialysis Tuesday & Tuesday @ [facility]. 11/04/17 05:[address] Irving @ who kindly accepted pt. Departure - Departure Time of Disposition: 05:28 Disposition: DC/Tfer to Acute Hospital 02 Condition: Poor Clinical Impression: CHF, Congestive heart failure, Hypoxemia Altered mental status, unspecified Qualifiers: Altered mental status type: unspecified Qualified Code(s): R41.82 - Altered mental status, unspecified - Discharge Information Forms: Interfacility Transfer EMTALA - My Orders Last 24 Hours: My Active Orders 11/04/17 03:01 Chest 1V Frontal [CR] Urgent 11/04/17 03:07 Head wo Cont [CT] Urgent - Assessment/Plan Last 24 Hours: My Active Orders 11/04/17 03:01 Chest 1V Frontal [CR] Urgent 11/04/17 03:07 Head wo Cont [CT] Urgent
[2017-11-04 02:49] LABS: ANION GAP 17.9; CHLORIDE,CL 96 mmol/L (101-111); SODIUM,NA 135 mmol/L (135-145)
[2017-11-04 03:15] VITALS: BP 117/66
--- NOTE | 2017-11-06 14:25 | EKG ---
11/04/2017 - SARA NOGUERA - TIME: 3:16 p.m. FINDINGS: As per my reading, sinus rhythm at 69. [facility] /[id number]
== END 2017-11-04 06:00 ==
LOC: DL.ED 02:17
DX: R41.82 Altered mental status, unspecified (principal); I11.0 Hypertensive heart disease with heart failure; I50.9 Heart failure, unspecified; R09.02 Hypoxemia; E11.21 Type 2 diabetes mellitus with diabetic nephropathy; E11.40 Type 2 diabetes mellitus with diabetic neuropathy, unspecified; Z79.4 Long term (current) use of insulin; Z79.82 Long term (current) use of aspirin; Z88.6 Allergy status to analgesic agent
CPT/HCPCS: 36415; 51702; 70450; 71045; 80053; 80305; 81003; 82140; 83880; 84484; 85025; 96374; 99285; G0480; J2310

== ENCOUNTER 2017-11-24 19:03 | Emergency (ER) | payer MEDICAID, OTHER ==
[~2017-11-24 19:03] MED LIST: HYDROmorphone 1 MG/ML Syringe IM ONE
--- NOTE | 2017-11-24 19:17 | EDM.PDOC ---
ED HPI GENERAL MEDICAL PROBLEM - General Chief Complaint: Allergic Reaction Stated Complaint: ALLERGIC REACTION Time Seen by Provider: 11/24/17 19:10 Source of Information: Reports: Patient, EMS History Limitations: Reports: No Limitations - History of Present Illness INITIAL COMMENTS - FREE TEXT/NARRATIVE: woke with swelling in face. Last meal tomatoes and grapes. Hx allergic reactions to bees and tylenol , denied any other reactions to medications or environment or foods.. Had epi so used on left thigh, "needle stuck into bone" . EMS reported one attempt to remove and needle firmly lodged. Dressed and stabilized pen. Denies difficulty breathing or swalling. Left Upper Leg Pain Score (Numeric/FACES): 7 - Related Data Allergies Allergy/AdvReac Type Severity Reaction Status Date / Time acetaminophen Allergy Intermediate Vomiting Verified 11/24/17 18:58 bee venom protein (honey bee) Allergy Anaphylactic Verified 11/24/17 18:59 Shock lidocaine Allergy Anaphylactic Verified 11/26/17 04:01 Shock Home Meds: Home Meds Aspirin [Sixto Chewable Aspirin] 81 mg PO DAILY 01/29/15 [History] Gabapentin [Neurontin] 600 mg PO DAILY #30 tablet 02/05/15 [Rx] Calcium Citrate/Vitamin D3 [Calcium Citrate - Vit D Caplet] 1 each PO BID [History] atorvaSTATin [Lipitor] 40 mg PO BEDTIME 06/13/17 [History] Bumetanide 2 mg PO BID 09/08/17 [History] Carvedilol 25 mg PO BID 09/08/17 [History] Insulin Detemir [Levemir Flextouch] 30 unit SQ BEDTIME 09/08/17 [History] Vitamin B Complex with C [Super B With Vitamin C] 1 cap PO DAILY 09/08/17 [ History] metOLazone [Metolazone] 5 mg PO DAILY 09/08/17 [History] hydrALAZINE HCl [Hydralazine HCl] 25 mg PO TID 10/06/17 [History] Past Medical History HEENT History: Reports: Impaired Vision Cardiovascular History: Reports: High Cholesterol, Hypertension, Other (See Below), Syncope Other Cardiovascular History: "have heart disease" Respiratory History: Reports: Bronchitis, Recurrent, COPD, Pneumonia, Recurrent Gastrointestinal History: Reports: Chronic Diarrhea, GERD Other Gastrointestinal History: Hernia repair on right side of abdomen Genitourinary History: Reports: Diabetic Nephropathy Musculoskeletal History: Reports: Arthritis, Back Pain, Chronic, Other (See Below) Other Musculoskeletal History: spinal stenosis and arthritis in spine Neurological History: Reports: Concussion, Headaches, Chronic, Migraines, Neuropathy, Diabetic Psychiatric History: Reports: Anxiety, Depression, Panic Attack Endocrine/Metabolic History: Reports: Diabetes, Type II Hematologic History: Reports: Anemia, Blood Transfusion(s) Dermatologic History: Reports: Other (See Below) Other Dermatologic History: past history of betancur. patient states 90% of body - Infectious Disease History Infectious Disease History: Reports: Chicken Pox - Past Surgical History Head Surgeries/Procedures: Reports: None Cardiovascular Surgical History: Reports: None GI Surgical History: Reports: Hernia Repair/Other Musculoskeletal Surgical History: Reports: Amputation Other Musculoskeletal Surgeries/Procedures:: right toe amputation Dermatological Surgical History: Reports: Skin Graft Social & Family History - Family History Family Medical History: Noncontributory Cardiac: Reports: High Cholesterol, Hypertension, Other (See Below) Other Cardiac Family History: "bad heart" GI: Reports: Cirrhosis Other GI Family History: "sister has cirrhosis" Musculoskeletal: Reports: Arthritis, Back pain, Chronic, RA Other Musculoskeletal Family History: mom has Ra,dad has chronic back pain and arthritis Neurological: Reports: Alzheimers Disease, Dementia, Other (See Below) Other Neurological Family History: dad has dementia and alzheimers disease and brother has permanent brain damage Psychiatric: Reports: Depression Endocrine/Metabolic: Reports: Diabetes, Type I Other Endocrine/Metabolic Family History: Mom - Caffeine Use Caffeine Use: Reports: Coffee, Soda, Tea ED ROS ALLERGIC REACTION - Review of Systems Review Of Systems: ROS reveals no pertinent complaints other than HPI. ED EXAM GENERAL NO PERIP PULSE - Physical Exam Exam: See Below Exam Limited By: No Limitations General Appearance: Alert, Mild Distress Eye Exam: Bilateral Eye: EOMI, PERRL, Other (eye lids puffy) Nose: Normal Inspection Throat/Mouth: Normal Inspection, Normal Lips, Normal Voice Head: Atraumatic, Normocephalic Neck: Normal Inspection Respiratory/Chest: No Respiratory Distress, Lungs Clear, Normal Breath Sounds Cardiovascular: Normal Peripheral Pulses, Regular Rate, Rhythm GI/Abdominal: Normal Bowel Sounds, Soft Extremities: No: Other (epi pen stailized left mid thigh) Neurological: Alert, Oriented, Normal Cognition Psychiatric: Normal Affect Skin Exam: Warm, Dry, Intact, Normal Color. No: Rash ED Add Procedures - Additional/Other Procedure(s) Procedure(s) (Free Text): superficial entrance wound exploration, luecency on xray in soft tissue in vacinity where needle ldged, 1/2ml 1% lido to entrance wound, No visualization of FB. Patient tolerated well. Course - Vital Signs Last Recorded V/S: Last Vital Signs Temp 99.0 F 11/24/17 23:00 Pulse 72 11/24/17 23:20 Resp 16 11/24/17 23:00 BP 161/60 H 11/24/17 23:20 Pulse Ox 95 11/24/17 23:20 - Orders/Labs/Meds Orders: Active Orders 24 hr Category Date Time Status RT Aerosol Therapy [RC] ASDIRECTED Care 11/25/17 04:30 Active RT Aerosol Therapy [RC] ASDIRECTED Care 11/25/17 04:30 Active Labs: Laboratory Tests 11/24/17 11/24/17 11/24/17 Range/Units 19:40 19:40 20:43 WBC 9.5 (5.0-10.0) 10^3/uL RBC 2.78 L (4.2-5.4) 10^6/uL Hgb 7.4 L (12.0-16.0) g/dL Hct 24.6 L (37.0-47.0) % MCV 88.5 (80-100) fL MCH 26.6 L (27.0-34.0) pg MCHC 30.1 L (33.0-35.0) g/dL Plt Count 288 (150-450) 10^3/uL Neut % (Auto) 74.6 (42.2-75.2) % Lymph % (Auto) 15.8 L (20.5-50.1) % [place] % (Auto) 7.5 (2-8) % Eos % (Auto) 1.9 (1.0-3.0) % Baso % (Auto) 0.2 (0.0-1.0) % D-Dimer, Quantitative (0-400) ng/mL Sodium 135 (135-145) mmol/L Potassium 4.6 (3.6-5.0) mmol/L Chloride 95 L (101-111) mmol/L Carbon Dioxide 27.0 (21.0-31.0) mmol/L Anion Gap 17.6 BUN 44 H (7-18) mg/dL Creatinine 5.7 H D (0.6-1.3) mg/dL Est Cr Clr Drug Dosing 10.65 mL/min Estimated GFR (MDRD) 8 BUN/Creatinine Ratio 7.71 Glucose 161 H (74-105) mg/dL POC Glucose 165 H (70-105) mg/dl Calcium 8.2 L (8.4-10.2) mg/dl Total Bilirubin 0.6 (0.2-1.0) mg/dL AST 22 (10-42) IU/L ALT 6 L (10-60) IU/L Alkaline Phosphatase 119 (42-121) IU/L Troponin I (0.00-0.02) ng/ml Total Protein 9.2 H (6.7-8.2) g/dl Albumin 2.6 L (3.2-5.5) g/dl Globulin 6.6 Albumin/Globulin Ratio 0.39 11/24/17 11/24/17 Range/Units 22:30 22:30 WBC (5.0-10.0) 10^3/uL RBC (4.2-5.4) 10^6/uL Hgb (12.0-16.0) g/dL Hct (37.0-47.0) % MCV (80-100) fL MCH (27.0-34.0) pg MCHC (33.0-35.0) g/dL Plt Count (150-450) 10^3/uL Neut % (Auto) (42.2-75.2) % Lymph % (Auto) (20.5-50.1) % [place] % (Auto) (2-8) % Eos % (Auto) (1.0-3.0) % Baso % (Auto) (0.0-1.0) % D-Dimer, Quantitative > 5000 H (0-400) ng/mL Sodium (135-145) mmol/L Potassium (3.6-5.0) mmol/L Chloride (101-111) mmol/L Carbon Dioxide (21.0-31.0) mmol/L Anion Gap BUN (7-18) mg/dL Creatinine (0.6-1.3) mg/dL Est Cr Clr Drug Dosing mL/min Estimated GFR (MDRD) BUN/Creatinine Ratio Glucose (74-105) mg/dL POC Glucose (70-105) mg/dl Calcium (8.4-10.2) mg/dl Total Bilirubin (0.2-1.0) mg/dL AST (10-42) IU/L ALT (10-60) IU/L Alkaline Phosphatase (42-121) IU/L Troponin I < 0.02 (0.00-0.02) ng/ml Total Protein (6.7-8.2) g/dl Albumin (3.2-5.5) g/dl Globulin Albumin/Globulin Ratio Meds: Medications Discontinued Medications Generic Name Dose Route Start Last Admin Trade Name Freq PRN Reason Stop Dose Admin Albuterol Confirm 11/24/17 20:50 11/24/17 20:55 Proventil Neb Soln Administered 11/24/17 20:51 2.5 mg Dose Administration 2.5 mg .ROUTE .STK-MED ONE Albuterol Confirm 11/24/17 21:07 11/24/17 21:09 Proventil Neb Soln Administered 11/24/17 21:08 2.5 mg Dose Administration 2.5 mg .ROUTE .STK-MED ONE Albuterol 2.5 mg 11/25/17 04:30 11/24/17 20:55 Proventil Neb Soln NEB 11/25/17 04:31 2.5 mg ONETIME ONE Administration Albuterol 2.5 mg 11/25/17 04:30 11/24/17 21:09 Proventil Neb Soln NEB 11/25/17 04:31 2.5 mg ONETIME ONE Administration Bacitracin 1 dose 11/24/17 20:20 11/24/17 20:26 Bacitracin Oint 1 Gm TOP 11/24/17 20:21 1 dose ONETIME ONE Administration Ceftriaxone Sodium 1 gm 11/24/17 20:00 11/24/17 20:20 Rocephin IVPUSH 11/24/17 20:01 1 gm ONETIME ONE Administration Diphenhydramine HCl 25 mg 11/24/17 20:20 11/24/17 20:25 Benadryl PO 11/24/17 20:21 25 mg ONETIME ONE Administration Epinephrine HCl Confirm 11/24/17 21:00 11/24/17 20:56 Adrenalin Administered 11/24/17 21:01 0.3 mg Dose Administration 1 mg .ROUTE .STK-MED ONE Epinephrine HCl 0.3 mg 11/25/17 04:29 11/24/17 20:56 Adrenalin SUBCUT 11/25/17 04:30 0.3 mg ONETIME ONE Administration Hydromorphone HCl 1 mg 11/24/17 18:57 11/24/17 19:01 Dilaudid IM 11/24/17 18:58 1 mg ONETIME ONE Administration Lidocaine HCl 30 ml 11/24/17 19:46 11/24/17 20:05 Xylocaine-Mpf 1% INJECT 11/24/17 19:47 30 ml ONETIME ONE Administration Methylprednisolone Sodium Succinate Confirm 11/24/17 20:48 11/24/17 20:50 Solu-Medrol Administered 11/24/17 20:49 125 mg Dose Administration 125 mg .ROUTE .STK-MED ONE Methylprednisolone Sodium Succinate 125 mg 11/25/17 04:28 11/24/17 20:50 Solu-Medrol IVPUSH 11/25/17 04:29 125 mg ONETIME ONE Administration Naloxone HCl Confirm 11/24/17 20:46 11/24/17 20:51 Narcan Administered 11/24/17 20:47 1 mg Dose Administration 2 mg .ROUTE .STK-MED ONE Naloxone HCl 1 mg 11/25/17 04:28 11/24/17 20:51 Narcan IVPUSH 11/25/17 04:29 1 mg ONETIME ONE Administration - Re-Assessments/Exams Free Text/Narrative Re-Assessment/Exam: Brief unresponsive period last 10 seconds within few minutes of Rocephin . Regular pulse maintained, decrease in saturation 70's brief, responded with O@, arousable with sternal rub, mumbled initial response, appeared to improve with narcan. Previous allergic reaction with presentation, additional epi and solumedrol administered. Head CT noting possible subacute infarct in temproal area. TC Dr. mcfadden accepting of patient for further evaluation. Patient alert oriented at time of transfer, saturation manitained 90's. Lung saavedra clear. Heart rate rhythm regular, sinus rhythm. No rash noted. Departure - Departure Time of Disposition: 23:55 Disposition: DC/Tfer to Acute Hospital 02 Condition: Good Clinical Impression: Abnormal head CT Allergic response Qualifiers: Encounter type: initial encounter Qualified Code(s): T78.40XA - Allergy, unspecified, initial encounter Contact with hypodermic needle as cause of accidental injury Qualifiers: Encounter type: initial encounter Qualified Code(s): W46.0XXA - Contact with hypodermic needle, initial encounter - Discharge Information Referrals: PCP,Unobtain [Primary Care Provider] - Forms: ED Department Discharge - My Orders Last 24 Hours: My Active Orders 11/25/17 04:30 RT Aerosol Therapy [RC] ASDIRECTED RT Aerosol Therapy [RC] ASDIRECTED - Assessment/Plan Last 24 Hours: My Active Orders 11/25/17 04:30 RT Aerosol Therapy [RC] ASDIRECTED RT Aerosol Therapy [RC] ASDIRECTED
[2017-11-24] MEDS ORDERED: Lidocaine 1% 30 ML SDV INJECT ONE (19:46)
[2017-11-24] MEDS ORDERED: cefTRIAXone 1 GM Vial IVPUSH ONE (20:00)
[2017-11-24 20:05] LABS: ANION GAP 17.6
[2017-11-24] MEDS ORDERED: Bacitracin Oint 1 GM U/D Packet TOP ONE (20:20)
[2017-11-24] MEDS ORDERED: diphenhydrAMINE 25 MG Tab PO ONE (20:20)
[2017-11-24] MEDS ORDERED: Naloxone 2 MG/2 ML Syringe ONE (20:46)
[2017-11-24] MEDS ORDERED: methylPREDNISolone Sodium Succinate 125 MG/2 ML SDV ONE (20:48)
[2017-11-24] MEDS ORDERED: Albuterol 0.083% 2.5 MG/3 ML Neb Soln ONE ×2 (20:50→21:07)
[2017-11-24] MEDS ORDERED: EPINEPHrine 1 MG/ML SDV ONE (21:00)
[2017-11-24 23:56] VITALS: BP 161/60
[2017-11-25] MEDS ORDERED: Naloxone 2 MG/2 ML Syringe IVPUSH ONE (04:28)
[2017-11-25] MEDS ORDERED: methylPREDNISolone Sodium Succinate 125 MG/2 ML SDV IVPUSH ONE (04:28)
[2017-11-25] MEDS ORDERED: EPINEPHrine 1 MG/ML SDV SUBCUT ONE (04:29)
[2017-11-25] MEDS ORDERED: Albuterol 0.083% 2.5 MG/3 ML Neb Soln NEB ONE ×2 (04:30)
== END 2017-11-24 23:46 ==
LOC: DL.ED 19:03
DX: S70.352A Superficial foreign body, left thigh, initial encounter (principal); T78.40XA Allergy, unspecified, initial encounter; R93.89 Abnormal findings on diagnostic imaging of other specified body structures; I10 Essential (primary) hypertension; K21.9 Gastro-esophageal reflux disease without esophagitis; E78.00 Pure hypercholesterolemia, unspecified; E11.9 Type 2 diabetes mellitus without complications; Z79.4 Long term (current) use of insulin; Z79.899 Other long term (current) drug therapy; Z88.6 Allergy status to analgesic agent; Z91.030 Bee allergy status; Z88.8 Allergy status to other drugs, medicaments and biological substances; W46.0XXA Contact with hypodermic needle, initial encounter
CPT/HCPCS: 36415; 70450; 71045; 73552; 80053; 82962; 84484; 85025; 85379; 93005; 96372; 96374; 96375; 99285; A9270; J0171; J0696; J1170; J2310; J2930; J7613-GY